=== PATIENT | male | born 1960 | race Caucasian/White ===

== ENCOUNTER → 2017-08-11 16:01 | Outpatient (CLI) | payer BC, SELFPAY ==
--- NOTE | 2017-08-11 16:14 | MRI_ITS ---
STUDY: MRI RIGHT WRIST WITHOUT CONTRAST REASON FOR EXAM: Male, 57 years old. Cyst on right wrist 4 months. TECHNIQUE: Standardized fat and water weighted pulse sequences were obtained in all 3 orthogonal planes. COMPARISON: Radiograph of the right wrist dated June 04, 2016 showing severe osteoarthritic changes. FINDINGS: There is severe arthrosis of the radiocarpal and radioulnar joints. There is severe intercarpal arthritis with loss of articular cartilage and subchondral cyst formation. There is severe arthrosis of the first carpometacarpal joint with a joint effusion and small ganglion cyst (coronal series 4 images 7-15). There is a tear of the triangular fibrocartilage complex with fluid in the distal radioulnar joint (coronal series 4 images 7-13). There is a small volar ganglion cyst at the radioulnar articulation (short axis series 6 images 14-18). There is marked tenosynovitis of the third and fourth dorsal compartments (short axis series 6 images 1-14). There is mild tenosynovitis of the extensor carpi ulnaris (axial series 6 images 16-21). MRI/Upper Ext Joint Only(Routine) IMPRESSION: Severe osteoarthritic changes as described. Severe arthrosis of the first carpometacarpal joint with a small ganglion cyst medially. TFCC tear with fluid in the distal radioulnar joint. Small volar ganglion cyst at the radial ulnar articulation. Marked tenosynovitis of the third and fourth dorsal compartments. Mild tenosynovitis of the extensor carpi ulnaris. Electronically Signed: Naresh Cline MD at 17:00 EDT , Service support ,
== END ==
PROVIDERS: Family Provider Family Medicine Geriatric Medicine; PCP Family Medicine Geriatric Medicine; Visit Provider Orthopaedic Surgery
DX: M67.431 Ganglion, right wrist (principal)
CPT/HCPCS: 73221

== ENCOUNTER 2017-08-31 10:20 | Day surgery (SDC) | payer BC, SELFPAY ==
[2017-08-31] VITALS (7 sets, daily range): BP systolic 107–138; BP diastolic 73–90; PULSE 74–92; RESP 16; TEMP 36.3–36.6; O2SAT 100; BMI 27.8
--- NOTE | 2017-08-31 | SYN_PTH ---
PATIENT: IRIS MUNOZ LOC: [facility] [place] U#:[id number] AGE/SX: 57/M ROOM: RE08/31/[address]: Dr. Amada Pleitez DO : 1960 BED: DIS: 08/31/2017 SPEC #: [id number] RECD: 08/31/17 08:53 STATUS: MADELEINE DEVANG #: [id number] JONN: 08/31/17 00:[address]: Amada Pleitez DEPT: SURGICAL PATHOLOGY RECD BY: oHme Farris ENTERED: 09/01/17 08:54 SP TYPE: SYNOVIUM OTHR DR: Dr. Jeffrey Mcmillan MD Tissues: Synovial tissue of joint, NOS Procedures: Surgery Specimen Level IV HEADER OPERATION: Excision cyst PRE-OP DIAGNOSIS: Cyst dorsal hand, right TISSUE SUBMITTED: Synovial cyst, right hand MICROSCOPIC DIAGNOSIS Right hand synovial cyst, excision: Synovial cyst with mild fibrosis and minimal chronic inflammation. AM:rozina 09/02/17 MICROSCOPIC DESCRIPTION Slides are reviewed. GROSS DESCRIPTION Received in fixative is one container labeled with the patient's name and designated synovial cyst right hand. The specimen consists of multiple irregular fragments of light ramos-yellow soft tissue that in aggregate measure 3 x 1.5 x 0.2 cm. The specimen is totally submitted in one cassette. / AM:rozina 09/01/17 TC:5 CPT: 49136
[2017-08-31] MEDS: Cefazolin 2 GM in 0.9% Normal Saline 100 ML IV (11:16)
--- NOTE | 2017-08-31 11:30 | DCINST_ITS ---
Discharge Diet: No Restrictions - leave dressing on until seen in postop clinic , call with concerns Discharge Activity: May Not Drive May shower in (days): 1 Ice area for (Minutes): 20 - Every hour while awake. Weight Bearing Status: Weight bearing as tolerated Keep extremity elevated above heart level: Operative Extremity Call your doctor if your incision/area has: Continuous Slow Oozing, Sudden Increased Bleeding, Increased Pain/ Swelling, Increased Redness, Foul Smelling Discharge Call your doctor if you observe: Fever of 101 or Higher, Coldness, Increased Pain, Numbness or Tingling, Change in Color, Calf discomfort Allergies/Adverse Reactions: Allergies Gadolinium-MRI Contrast Medium [CONTRAST] Allergy (Verified 08/30/17 10:33) Unknown Iodinated Contrast- Oral and IV Dye [CONTRASTS] Allergy (Verified 08/30/17 10:33 ) Unknown Medications to take at Discharge Amlodipine Bes/Olmesartan Med [Richie 5-20 mg Tablet] 1 each PO DAILY 08/30/17 Oxycodone HCl/Acetaminophen [Percocet 5/325] 1 - 2 tablet PO Q6H PRN PRN 5 Days #56 tablet 08/31/17 The following prescriptions were given: Oxycodone HCl/Acetaminophen [Percocet 5/325] 1 - 2 tablet PO Q6H PRN PRN 5 Days #56 tablet PRN Reason: Pain Primary Care Physician: Jeffrey Mcmillan Chi, MD [Primary Care Provider] - Please Follow Up With: Amada Pleitez, DO - [phone]
--- NOTE | 2017-08-31 11:30 | PCM.OPRPT ---
Report of Operation Date of Procedure: 08/31/17 Pre-Operative Diagnosis: right hand dorsum synovial cyst Post-Operative Diagnosis: same Surgery/Procedure Performed:: right dorsum hand excision synovial cyst Type of Anesthesia:: Francy Washington Anesthesiologist: Konstantin Winn Estimated Blood Loss (mL): none Fluids Replaced: 800cc lr Description of Procedure: Preoperative note 57-year-old male with right dorsal hand synovial cyst. Confirmed with imaging. Patient failed conservative treatment and like to proceed with right dorsal hand synovial cyst excision. Risks benefits and alternatives surgery discussed with patient. Risks including but not limited to blood loss, blood clot, infection, neurovascular injury, failure procedure, loss of life and loss of limb. Patient is aware would like to proceed with right dorsal hand cyst excision. Biggest risk for this procedure procedure is actually reaccumulation of the synovial fluid and a cyst. Operative note Patient seen and examined preoperative holding area. Right hand was marked. Patient is brought to the operating room placed supine on the operating table. Sign, anesthesia, antibiotics were administered. Right hand was prepped and draped in usual sterile fashion after [place] block was initiated. We then marked out our incision over the synovial cyst on the dorsum of the hand extending across the wrist crease as it did on the cyst did cross the wrist crease proximally. Timeout was performed. Then used a 15 blade cut through the skin in a curvilinear fashion at our incision. I dissected down times the level of the cyst. The cyst was wrapped around the extensor tendons. We removed this there is no attritional wear of the extensor tendons. Use a combination of tenotomies and are bipolar to try to release the cyst. We did send it to pathology for further evaluation. We may careful attention to ensure that we had all neurovascular structures well protected as well as the tendons. Again we dissected down to the tendon and excised the synovial cyst as we could. We did have to release some of the extensor retinaculum which was repaired with a 2 2-0 Vicryl. We irrigated the in hand with copious nonsterile saline. The retinaculum was repaired with again with 3-0 Vicryl the skin was closed with subcutaneous 2-0 Vicryl and the skin was closed with interrupted 4-0 nylon stitches sterile dressings and a splint was applied to the right wrist. Patient's tourniquet was deflated for total working time of 50 minutes. Patient tolerated procedure well there are no complications. Patient transferred to recovery room in stable condition. Next Postoperative note Nonweightbearing right hand next May use hand as tolerated Keep dressing clean and dry and intact this Call with increased pain numbness tingling further issues arise Follow-up in 2 weeks This note was generated with [employer] dictation software. It may contain incorrect words, spelling, and punctuation that were not noted in checking the note before signing.
[2017-08-31] MEDS: Mupirocin Ointment 22gm Tube 1 APPLIC (12:34)
== END 2017-08-31 13:53 | disposition home or self-care (01) ==
PROVIDERS: Family Provider Family Medicine Geriatric Medicine; PCP Family Medicine Geriatric Medicine; Visit Provider Orthopaedic Surgery
PROC: (CPT 26160; principal; 2017-08-31 12:50)
DX: M71.341 Other bursal cyst, right hand (principal); I10 Essential (primary) hypertension; F17.200 Nicotine dependence, unspecified, uncomplicated; Z79.899 Other long term (current) drug therapy; Z86.718 Personal history of other venous thrombosis and embolism
CPT/HCPCS: 26160; 88305; J7120

== ENCOUNTER → 2018-01-23 16:42 | Outpatient (CLI) | payer BC, SELFPAY ==
[2018-01-23 17:31] LABS: Absolute Lymphocyte Count 1.65 X10^3/ul (0.83-4.51); Absolute Neutrophil Count 3.7 X10^3/uL (2.0-7.7); Basophil# 0.02 X10^3/uL; Basophil% 0.3 % (0-1); Eosinophil# 0.13 X10^3/uL; Eosinophils% 2.1 % (0-5); Hematocrit 43.6 % (40-54); Hemoglobin 14.8 g/dl (13.0-16.5); Lymphocyte # 1.65 X10^3/ul (4.0); Lymphocyte % 27.1 % (19-41); Mean Corp Hgb Conc 33.9 g/gl (32-36); Mean Corpuscular Hgb 31.4 pg (27.0-32.0); Mean Corpuscular Volume 92.6 fL (80-94); Mean Platelet Vol. 9.7 fl (6.2-12.0); Monocyte# 0.62 X10^3/uL; Monocyte% 10.2 % (0-10); Neutrophil # 3.66 X10^3/uL (2.7-7.7); Neutrophil % 60.1 % (47-70); Platelet Count 209 K/mm3 (150-450); RBC Distribution Width CV 12.8 % (11.6-14.6); RBC Distribution Width SD 42.8 fl (35.1-43.9); Red Blood Count 4.71 M/mm3 (4.6-6.2); White Blood Count 6.1 K/mm3 (4.4-11.0)
[2018-01-23 17:32] LABS: POSITIVE COUNT NO; POSITIVE DIFFERENTIAL NO; POSITIVE MORPHOLOGY NO
[2018-01-23 17:44] LABS: AST(SGOT) 17 U/L (15-37); Alanine Aminotransfer ALT/SGPT 25 U/L (16-61); Albumin, Serum 3.6 g/dL (3.2-5.0); Alkaline Phosphatase 66 U/L (45-117); Anion Gap 10 (5-15); BUN 20 mg/dL (7-18); Calcium,Total 8.6 mg/dL (8.5-10.1); Chloride 103 mmol/L (98-107); EST Glomerular Filtration Rate 82 mL/min (>60); Est Glom Filt Rate - Afr Amer 99 mL/min (>60); Globulin 3.5 g/dL (2.2-4.2); Glucose 103 mg/dL (74-106); PSA,Total - Annual Screen 1.75 ng/mL (0.00-4.00); Potassium 4.2 mmol/L (3.5-5.1); Protein, Total 7.1 g/dL (6.4-8.2); Sodium Level 141 mmol/L (136-145); Thyroid Stim Hormone (TSH) 1.22 uIU/mL (0.358-3.74)
[2018-01-25 11:29] LABS: Hep C Antibodies <0.1 s/co ratio (0.0-0.9)
== END ==
PROVIDERS: Family Provider Family Medicine Geriatric Medicine; PCP Family Medicine Geriatric Medicine; Visit Provider Family Medicine Geriatric Medicine
DX: I10 Essential (primary) hypertension (principal); Z13.89 Encounter for screening for other disorder; Z12.5 Encounter for screening for malignant neoplasm of prostate
CPT/HCPCS: 36415; 80053; 84153; 84443; 85025; 86803; G0103

== ENCOUNTER 2019-02-03 18:16 | Emergency (ER) | payer BC, SELFPAY ==
[2019-02-03 18:17] VITALS: BP 128/92; PULSE 105; RESP 15; TEMP 36.4; O2SAT 97; BMI 25.4
--- NOTE | 2019-02-03 19:30 | ED.VISSUMM ---
- ER Visit Summary Date of Service: 02/03/19 Chief Complaint: Left groin lump History of Present Illness: The patient is a 58 M no significant past medical or surgical history. Patient states that he noticed a lump in his left groin today. Denies any pain. No nausea, vomiting no diarrhea no constipation no dysuria. No fever or chills. No prior abdominal surgeries. Physical Examination: Well-appearing 58-year-old male. Vital signs stable afebrile. Lungs clear. Heart regular rhythm. Abdomen soft and nontender. Normal bowel sounds no peritoneal signs. He has a moderate sized left inguinal hernia. Is nontender. Is easily reducible. His external exam otherwise is unremarkable. Right groin is unremarkable. There are no signs of bowel obstruction. No signs are incarcerated or strangulated hernia. Moving all 4 extremities. Neurologically is awake and alert. Test Results: None Emergency Department Course and Treatment: History and exam consistent with a reducible left inguinal hernia. Treatment Plan: Follow-up with Dr. Matute general surgery. Return if severe pain or vomiting or abdominal distention. Disposition: Discharge Impression: Acute left inguinal hernia This note was generated with [email or web address] dictation software. It may contain incorrect words, spelling, and punctuation that were not noted in review of the chart prior to signing ED Disposition - Plan for ED Patient: Referrals: Jeffrey Mcmillan Chi, MD [Primary Care Provider] -
--- NOTE | 2019-02-03 19:32 | ED.DEP ---
ED Disposition - Plan for ED Patient: Disposition: Home or Assisted Living Instructions: HERNIA (Inguinal, Ventral, Umbilical) Referrals: Geo Matute MD [STAFF PHYSICIAN] - As soon as possible Additional Instructions: Motrin for pain. This is a inguinal hernia. You need to follow-up with a local general surgeon to discuss having this fixed. It will not heal on its own. Return to the ER if severe pain or intractable vomiting or you get a distended abdomen. These should not happen but there can be complications of a hernia before you get it repaired.
[2019-02-03 19:45] VITALS: BP 126/90; PULSE 98; TEMP -8.8; TEMP 16; O2SAT 97
== END 2019-02-03 19:45 | disposition home or self-care (01) ==
PROVIDERS: Emergency Provider Emergency Medicine; Family Provider Family Medicine Geriatric Medicine; PCP Family Medicine Geriatric Medicine
DX: K40.90 Unilateral inguinal hernia, without obstruction or gangrene, not specified as recurrent (principal); Z72.0 Tobacco use
CPT/HCPCS: 99282

== ENCOUNTER 2019-02-16 10:54 | Day surgery (SDC) | payer BC, SELFPAY ==
[2019-02-06 14:58] VITALS: BMI 25.4
--- NOTE | 2019-02-08 09:46 | HP_ITS ---
Intake Vital Signs 02/06/19 Body Mass Index (BMI) 25.4 02/06/19 Height 5 ft 10 in 02/06/19 Weight: 176 lb 02/06/19 Body Mass Index (BMI) 25.2 02/06/19 Blood Pressure 126/65 H 02/06/19 Blood Pressure Location Rt brachial 02/06/19 Respiratory Rate 20 H 02/06/19 Pulse Rate 103 H 02/06/19 Pulse Source Monitor 02/06/19 Temperature 98.2 F 02/06/19 Temperature Source Oral 02/06/19 Pulse Ox 99 02/06/19 Oxygen Delivery Method room air Intake Visit Reasons: Lt Inguinal Hernia ER FU Keel Press Operator Required: No Is patient in pain?: No Allergies Gadolinium-MRI Contrast Medium [CONTRAST] Allergy (Verified 02/06/19 14:58) Unknown Iodinated Contrast Media [CONTRASTS] Allergy (Verified 02/06/19 14:58) Unknown Medications Primidone 1 tab PO DAILY 02/03/19 [History Confirmed 02/06/19] PFSH Medical History History of blood clots (Acute) Left inguinal hernia (Acute) Occasional tremors (Acute) Surgical History (Updated 02/06/19 @ 14:52 by Pearl Torres) History of left knee surgery (Acute) h/o cyst excision (Acute) history excision ganglion cyst right hand (Acute) Social History (Updated 02/08/19 @ 09:46 by Geo Matute MD) Smoking Status: Current some day smoker alcohol intake: current alcohol intake frequency: a few times a week Alcohol type: beer substance use type: does not use HPI HPI HPI: IRIS MUNOZ, is a 58 M who presents to the office today for HPI HPI Surgical H&P: Yes HPI: IRIS MUNOZ, is a 58 M who presents to the office today for inguinal hernia. Patient is complaining of bulging in the left groin. He is not having any pain in the right side. He is having no nausea or vomiting or radiation of pain. He does not report any fevers or chills. ROS General General: Yes weight change; no appetite, fatigue, colon cancer, breast cancer or weakness HEENT HEENT: No difficulty swallowing, eye injury, eye surgery, swollen glands or hoarseness Endo Endocrine: No thyroid disease, diabetes mellitus, thyroid cancer, Hair loss, heat intolerance or cold intolerance Skin Skin: No rash or changing moles Breast Breast: No left breast lump, right breast lump, nipple discharge, breast pain, abnormal mammogram, abnormal US or breast enlargement Musc Musculoskeletal: No back problems, arthritis, rheumatoid arthritis, gout or joint pain Cardio Cardiovascular: No murmur, pacemaker, heart disease, atrial fibrillation, high blood pressure, heart attack, heart stent, palpitations, shortness of breat with exertion or chest pain Psych Psychiatric: No depression, anxiety or hearing voices Resp Respiratory: No shortness of breath, No sleep apnea, Yes cough, No COPD, No asthma, No emphysema, No wheezing Gastro Gastrointestinal: No abdominal pain, No nausea or vomiting, No diarrhea, No constipation, No blood in stool, No acid reflux, No hemorrhoids, No ulcers, No gallbladder problem, No black,tarry stools Jorge Hematologic: Yes blood thinners, No blood disorders, No bleeding, No anemia, Yes blood clots Neuro Neurologic: No system reviewed and no additional complaints, except as docu, No as per HPI, No abnormal walking, No abnormal hearing, No abnormal movements, No abnormal speech, No behavioral changes, No burning sensations, No confusion, No seizure-like activity, No unsteadiness, No dizziness, No localized weakness, No frequent falls, No headache(s), No lack of coordination, No loss of vision, No memory loss, No numbness, No other visual disturbances, No radiating pain, No restless legs, No sensory deficit, No fainting, No tingling, No tremor(s), No weakness, No other Exam Const General: cooperative Orientation: alert, oriented x3 HENMT Head: normal to inspection Ears: hearing grossly normal bilaterally Eyes General: appearance normal, both eyes and all related structures Visual Oconnell: normal visual oconnell by confrontation Neck Neck: normal visual inspection Chest Chest palpation & inspection: normal inspection of the chest Breast Palpation: No nipple discharge Resp Effort & Inspection: normal respiratory effort Auscultation: clear to auscultation bilaterally Cardio Rate: regular rate Rhythm: regular rhythm Heart Sounds: no murmurs GI Inspection: non-distended Palpation: soft, hernia indirect inguinal bilaterally and umbilical, nontender Musc Cervical Spine: normal cervical lordosis, cervical ROM normal Skin General: no rashes or lesions noted Neuro General: alert, oriented x3 Cranial Nerves: CN's II-XI intact bilaterally Cognition: normal cognition Extrem General: normal to inspection, full ROM Psych Appearance: grossly normal Affect: normal affect Assessment & Plan Problems 1. Umbilical hernia without obstruction and without gangrene K42.9 2. Non-recurrent bilateral inguinal hernia without obstruction or gangrene K40.20 Plan The patient on physical exam has a small umbilical hernia and bilateral inguinal hernias. They are all reducible and nontender. I discussed open versus laparoscopic repair. The patient is leaning toward lap scopic repair. I discussed robotic assisted laparoscopic bilateral inguinal hernia repair with mesh as well as umbilical hernia repair with or without mesh. I discussed the risks of the procedure including but not limited to bleeding, infection, injury to spermatic cord, chronic groin pain, injury to underlying bowel, hernia recurrence. Patient understands all the risks and is willing to proceed with surgery. Geo Matute MD Pager: [facility] [address] [place] [address], [address] [place] [address] Office: Coding Level of Care Code Off vis,new,level 4 Diagnoses Umbilical hernia without obstruction and without gangrene K42.9 ??Obstruction and gangrene presence: without obstruction or gangrene Non-recurrent bilateral inguinal hernia without obstruction or gangrene K40.20 ??Obstruction and gangrene presence: without obstruction or gangrene ??Recurrence: non-recurrent Time Spent (min) 45 02/08/19 0693 <Electronically signed by Geo glynn MD> Date _ Geo Matute MD I have re-examined the patient. There are no clinical changes since date of exam.
[2019-02-16] VITALS (8 sets, daily range): BP systolic 125–159; BP diastolic 80–91; PULSE 56–72; RESP 14–18; TEMP 36.4–36.9; O2SAT 94–100; BMI 25.2
[2019-02-16] MEDS: Lactated Ringers 1,000 ML 100 ML IV ×2 (11:54→14:42)
[2019-02-16] MEDS: Cefazolin 2 GM in 0.9% Normal Saline 100 ML IV (12:16)
--- NOTE | 2019-02-16 13:05 | HERN_PTH ---
PATIENT: IRIS MUNOZ LOC: [facility] [place] U#:[id number] AGE/SX: 58/M ROOM: RE02/16/[address]: Dr. Geo Matute MD : 1960 BED: DIS: 02/16/2019 SPEC #: [id number] RECD: 02/16/19 15:17 STATUS: MADELEINE DEVANG #: [id number] JONN: 02/16/19 13:[address]: Geo Matute DEPT: SURGICAL PATHOLOGY RECD BY: Emmanuel Reese ENTERED: 02/19/19 09:21 SP TYPE: Hernia OTHR DR: Dr. Jeffrey Mcmillan MD Tissues: A - HERNIA B - LIPOMA OF CORD Procedures: Surgery Specimen Level II Surgery Specimen Level III HEADER OPERATION: Robotic laparoscopic bilateral inguinal hernia repair PRE-OP DIAGNOSIS: Umbilical hernia without obstruction and without gangrene, nonrecurrent bilateral inguinal hernia without obstruction or gangrene TISSUE SUBMITTED: A. Umbilical hernia sac, B. Lipoma right cord MICROSCOPIC DIAGNOSIS A. Umbilical hernia sac, herniorrhaphy: Fragments of fibrofatty tissue consistent with hernia sac. B. Right cord lipoma, excision: Mature adipose tissue consistent with lipoma cord. AM:rozina 02/20/19 MICROSCOPIC DESCRIPTION Slides are reviewed. GROSS DESCRIPTION A - Received in fixative is one container labeled with the patient's name and designated umbilical hernia sac. The specimen consists of two irregular fragments of ramos-yellow fatty tissue that in aggregate measure 2.6 x 2 x 1 cm. Serial sections do not reveal nodularities. The specimen is sectioned and totally submitted in one cassette. / AM:rozina 02/19/19 B - Received in fixative is one container labeled with the patient's name and designated right cord lipoma. The specimen consists of yellow fatty tissue measuring 2.5 x 2 x 1 cm. Sections reveal yellow cut surfaces. Football Pad Repairer sections are submitted in one cassette. / AM:rozina 02/19/19 TC:4 CPT: 68321, 72043
--- NOTE | 2019-02-16 13:17 | EKG12_ITS ---
Test Reason : PRE OP Blood Pressure : / mmHG Vent. Rate : 074 BPM Atrial Rate : 074 BPM P-R Int : 138 ms QRS Dur : 094 ms QT Int : 372 ms P-R-T Axes : 065 078 064 degrees QTc Int : 412 ms Normal sinus rhythm with sinus arrhythmia Normal ECG Confirmed by ARMANDO TRAVIS, KATY ([id number]), tape editor CLEO BARBOSA ([id number]) on 02/21/2019 10:52:02 AM Referred By: Geo Matute Confirmed By:KATY ROBERTS MD
[2019-02-16] MEDS: Bupivacaine Mpf 0.5% 30 ML VIAL (14:00)
--- NOTE | 2019-02-16 14:18 | OP.PCM_ITS ---
Problem List (1) Bilateral inguinal hernia Status: Acute Qualifiers: Obstruction and gangrene presence: without obstruction or gangrene Recurrence: non-recurrent Qualified Code(s): K40.20 - Bilateral inguinal hernia, without obstruction or gangrene, not specified as recurrent (2) Umbilical hernia Status: Acute Qualifiers: Obstruction and gangrene presence: without obstruction or gangrene Qualified Code(s): K42.9 - Umbilical hernia without obstruction or gangrene Report of Operation Date of Procedure: 02/16/19 Pre-Operative Diagnosis: 1. Bilateral inguinal hernias. 2. Umbilical hernia Post-Operative Diagnosis: Same Surgery/Procedure Performed:: 1. Robotic assisted laparoscopic bilateral inguinal hernia repair with mesh. 2. Umbilical hernia repair Specimen's removed: 1. Umbilical hernia sac. 2. Right inguinal lipoma Description of Procedure: The patient was brought back to the operating room and general anesthesia was induced. The abdomen was prepped and draped in usual sterile fashion. A curvilinear incision was made superior to the umbilicus and deepened to the hernia. The hernia sac was excised. Using this opening the abdomen was entered and port was placed in the abdomen. The abdomen was insufflated to 15 mmHg. The abdomen was inspected and there was a large direct left inguinal hernia. Next under direct visualization an 8 mm port was placed in the left lateral abdominal sidewall and the right lateral abdominal sidewall. The patient was placed in a steep Trendelenburg position and the robot was docked. Attention was first paid to the left inguinal region. The peritoneum was scored with electrocautery scissors and dissected inferiorly until the hernia sac was reduced into the abdomen and dissected free from all adhesions. Next pro-lab support tech mesh was placed into the left inguinal region and unfolded. The peritoneum was then reapproximated using running 3-0V lock suture. Next attention was paid to the right inguinal canal. The peritoneum was scored in the same fashion and the peritoneum was dissected inferiorly until the inguinal canal was reached. The right had an indirect hernia containing a large lipoma. The lipoma was reduced and dissected free and removed from the abdomen. Next a piece of pro-lab support tech mesh was placed into the right inguinal region and unfolded. The peritoneum was reapproximated using 2 3-0V lock sutures. The peritoneum was very thin and friable on the side. The mesh was completely covered with peritoneum by the end of the case. Next the instruments were removed and the patient was placed in the flat position and the ports were removed. The umbilical fascial defect was very small and closed with 2 interrupted 0 Vicryl sutures. The skin was then anesthetized with Marcaine and all the skin incisions were closed with interrupted 4-0 Monocryl sutures, Steri-Strips, bandages. Patient tolerated the procedure well was brought to PACU in stable condition. Grafts/Implants Used: Pro-lab support tech mesh bilaterally - Admit VTE Documentation VTE Mechan Device Prophylaxis: SCD's
--- NOTE | 2019-02-16 14:24 | DCINST_ITS ---
Discharge Diet: Light diet - advance as tolerated Discharge Activity: Return to Normal Activity, May Not Drive - for 2-3 days or while taking narcotic pain meds., May Shower - with the bandage in place 1-2 days after surgery. Lifting Restrictions: 20 pounds for 6 weeks. Additional Activity Instructions:: Climbing stairs is fine, walking is encouraged. Sitting in bed may be uncomfortable. Sitting up using your lateral muscles (sitting up sideways) is usually more comfortable. Do not drive, work heavy equipment of sign legal documents for 24 hours. If your hernia repair was an ingunial repair, you may have scrotal swelling, an ice pack and/or athletic support can provide more comfort. Pain medications may cause nausea, you should typically eat light foods as you take your pain medications. Pain medications may also cause constipation. If you have difficulty with this, discuss with your doctor. Call your doctor if your incision/area has: Continuous Slow Oozing, Sudden Increased Bleeding, Increased Pain/ Swelling, Increased Redness, Foul Smelling Discharge Call your doctor if you observe: Fever of 101 or Higher Suture Line Care: Avoid Pulling/Pushing, Avoid Pinching/Bending Change Dressing in (Days):: 3 - Leave steri-strips for 1 week. May protect with a guaze bandaid. Cleanse incision/area with: Keep Dressing Clean & Dry Allergies/Adverse Reactions: Allergies Gadolinium-MRI Contrast Medium [CONTRAST] Allergy (Verified 02/16/19 11:33) Unknown Iodinated Contrast Media [CONTRASTS] Allergy (Verified 02/16/19 11:33) Unknown Medications to take at Discharge Primidone 1 tab PO QHS 02/03/19 Oxycodone HCl/Acetaminophen [Percocet 5/325] 1 - 2 tablet PO Q4H PRN PRN 4 Days #20 tablet 02/16/19 The following prescriptions were given: Oxycodone HCl/Acetaminophen [Percocet 5/325] 1 - 2 tablet PO Q4H PRN PRN 4 Days #20 tablet PRN Reason: Pain Transmission Status: Sent to [facility] Primary Care Physician: Jeffrey Mcmillan Chi, MD [Primary Care Provider] - Test Results: Test results from this visit will be discussed in further detail at your follow- up appointment, if applicable. Please Follow Up With: Geo Matute MD When: Please call to schedule 2 week follow up appointment. [phone]
== END 2019-02-16 17:23 | disposition home or self-care (01) ==
LOC: SDC 10:58 → AC 11:24
PROVIDERS: Family Provider Family Medicine Geriatric Medicine; PCP Family Medicine Geriatric Medicine; Referring Provider Surgery; Visit Provider Surgery
PROC: (CPT 49650; principal; 2019-02-16 12:45)
DX: K40.20 Bilateral inguinal hernia, without obstruction or gangrene, not specified as recurrent (principal); K42.9 Umbilical hernia without obstruction or gangrene; I10 Essential (primary) hypertension; F17.200 Nicotine dependence, unspecified, uncomplicated; Z79.899 Other long term (current) drug therapy; Z88.8 Allergy status to other drugs, medicaments and biological substances; Z86.718 Personal history of other venous thrombosis and embolism
CPT/HCPCS: 00840; 49650; 49652; S2900; 88302; 88304; 93005; J7120; J2405

== ENCOUNTER → 2019-03-02 13:49 | Outpatient (CLI) | payer BC, SELFPAY ==
[2019-02-16 11:34] VITALS: BMI 25.2
--- NOTE | 2019-03-02 13:52 | CT_ITS ---
STUDY: CT ABDOMEN AND PELVIS WITHOUT CONTRAST REASON FOR EXAM: Male, 58 years old. Left inguinal hernia. History of previous hernia surgery, most recent repair 02/16/2019. RADIATION DOSAGE (If Supplied By Facility): CTDIvol = ( 7.94 ) mGy, DLP = ( 455.35 ) mGycm TECHNIQUE: Transaxial images were obtained from the dome of the diaphragm to the symphysis pubis with oral contrast, and without intravenous contrast. Sagittal and coronal images were reconstructed. Individualized dose optimization techniques were used for this CT. COMPARISON: None. FINDINGS: The visualized lung bases are unremarkable. The visualized portions of the heart are within normal limits. Normal liver. Normal gallbladder and extrahepatic biliary system. Normal spleen. Normal pancreas. Normal bilateral adrenal glands. There is mild nonspecific bilateral perinephric stranding, otherwise normal right kidney. Normal left kidney. Normal visualized stomach. Normal small intestine. Normal colon. The appendix is visualized and appears normal. There is mild atherosclerotic calcification of the abdominal aorta, without a demonstrated aneurysm. Normal inferior vena cava. Normal retroperitoneum. Normal urinary bladder. Normal visualized prostate gland. There is no right-sided inguinal hernia. There is a left-sided inguinal hernia with suggestion of a portion of the urinary bladder herniated through a small and partially occupying the hernia sac. There are diffuse degenerative changes of the visualized lumbar spine. CT/Abdomen/Pelvis without Cont IMPRESSION: Left-sided inguinal hernia with suggestion of a small portion of the left anterolateral aspect of the urinary bladder herniated through a small/marrow hernia neck, clinical correlation recommended. No bowel obstruction. Abdominal viscera are unremarkable. Electronically Signed: Lindsay Bain MD at 4:32 EDT , Service support ,
== END ==
PROVIDERS: Family Provider Family Medicine Geriatric Medicine; PCP Family Medicine Geriatric Medicine; Referring Provider Surgery; Visit Provider Surgery
DX: K40.90 Unilateral inguinal hernia, without obstruction or gangrene, not specified as recurrent (principal)
CPT/HCPCS: 74176

== ENCOUNTER → 2019-05-07 14:02 | Outpatient (CLI) | payer BC, SELFPAY ==
[2019-03-30 13:26] VITALS: BMI 25.2
== END ==
PROVIDERS: Family Provider Family Medicine Geriatric Medicine; PCP Family Medicine Geriatric Medicine; Referring Provider Family Medicine Geriatric Medicine; Visit Provider Family Medicine Geriatric Medicine
DX: R68.83 Chills (without fever) (principal)
CPT/HCPCS: 87633

== ENCOUNTER 2019-10-19 20:27 | Inpatient (IN) | payer OTHER, MEDICAID, SELFPAY ==
[2019-03-30 13:26] VITALS: BMI 25.2
[2019-10-19 20:28] VITALS: BP 174/121; PULSE 142; RESP 32; TEMP 37.4; O2SAT 93; BMI 32.8
[2019-10-19 20:31] VITALS: BP 174/121; PULSE 142; RESP 32; TEMP 37.4; O2SAT 93; O2SAT 96
--- NOTE | 2019-10-19 20:45 | EKG12_ITS ---
Test Reason : Blood Pressure : / mmHG Vent. Rate : 108 BPM Atrial Rate : 108 BPM P-R Int : 144 ms QRS Dur : 088 ms QT Int : 324 ms P-R-T Axes : 055 068 042 degrees QTc Int : 434 ms Sinus tachycardia Incomplete right bundle branch block Confirmed by ARMANDO TRAVIS, KATY ([id number]), proposal editor VAUGHN MAZARIEGOS ([id number]) on 10/24/2019 1:27:21 PM Referred By: Milton Gómez Confirmed By:KATY ROBERTS MD
--- NOTE | 2019-10-19 20:46 | ED.DCSUM_ITS ---
History of Present Illness Chief Complaint: Shortness of Breath Informant: Patient Narrative: Presents the emergency room with chest pain shortness of breath and abdominal pain. Patient appears to be a poor historian as I have to ask very pointed specific questions to get the history. He tells me he has gained a lot of weight over a while. By this he means approximately 30 pounds over at least 6 months. He states that he had several hernia surgeries on his abdomen and his abdomen has been stiff since that time. He states that over the past 3 weeks it is gotten worse especially as he is put on more weight. He then began to have dry heaves over the past couple days. Tonight he states he could not catch his breath and he was experiencing sharp chest pains were right-sided. Last night he was unable to lay flat in bed so he had to sleep in a recliner. His contrast to IV dye is that he gets dizzy and has to lay down Past Medical History - Allergies and Home Meds Allergies/Adverse Reactions: Allergies Gadolinium-MRI Contrast Medium [CONTRAST] Allergy (Verified 10/19/19 20:35) DIZZY Iodinated Contrast Media [CONTRASTS] Allergy (Verified 10/19/19 20:35) DIZZY Primary Care Physician: Jeffrey Mcmillan Chi, MD [Primary Care Provider] - Surgical History: surgery for boils on the patient's right lower leg and left upper thigh Smoking Status: Former smoker Review of Systems General: Reports: - - Weight gain approximately 30 pounds over at least 6 months. Denies: Chills, Fever, Sweats Eyes: Denies: Visual changes - bilaterally, Diplopia ENT: Denies: Rhinorrhea, Sore throat Cardiovascular: Reports: Chest pain. Denies: Palpitations Respiratory: Reports: Dyspnea, Cough, Dyspnea on exertion, Orthopnea Gastrointestinal: Reports: Abdominal pain, Nausea, Vomiting. Denies: Diarrhea, Constipation, Melena, Hematochezia Genitourinary: Denies: Dysuria, Hematuria, Frequency Musculoskeletal: Denies: Back pain, Extremity Pain Skin: Denies: Rash, Wounds Neurological: Denies: Headache, Weakness, Numbness Physical Exam Vital Signs/Narrative: Vital Signs Temp Pulse Resp BP Pulse Ox 10/19/19 20:31 99.4 F H 142 H 32 H 174/121 H 93 10/19/19 20:28 99.4 F H 142 H 32 H 174/121 H 93 Inital Vital Signs reviewed: Yes General: Well nourished, Well developed, No Acute Distress Head: Normocephalic, Atraumatic Eyes: Perrl, EOMI ENT: Moist mucous membranes, No rhinorrhea Neck: Supple, Nontender Cardiovascular: Regular rate, No murmurs, Tachycardia Respiratory: No distress, CTA bilaterally, Chest nontender Abdomen: Soft, Nondistended, Normal bowel sounds, Tender - Diffusely tender Back: Nontender, Normal Inspection Extremities: Nontender, No edema Skin: Normal color, No rash Neurological: Alert, Oriented x3, Cranial nerves II-XII grossly intact, Normal Strength, Normal Sensation Psychological: Tearful Diagnostic/Tx/Re-eval Clinical Impression(s) from Imaging Studies Chest X-Ray 10/19/19 20:49 IMPRESSION: No acute thoracic pathology. Electronically Signed: Shabbir Billings, at 21:05 EDT Tel , Service support , Abdomen/Pelvis CT 10/19/19 21:45 IMPRESSION: New elevation of the right hemidiaphragm with right lower lobe airspace disease consolidation and many new calcified hilar and right lung granulomas. This could be due to phrenic nerve injury causing for elevation of the right hemidiaphragm. This could be due to of lymph nodes, some which are calcified causing bronchial wall obstruction and volume loss within the right lower lobe. This could also be due to infection on top of chronically atelectatic lung with a small right pleural effusion. Severe coronary artery calcific ASCVD. Individualized dose optimization techniques were used for this CT. at 2300 Reported and signed by: Jeremi Morris MD Electronically Signed: Jeremi Morris MD at 22:59 EDT Tel , Service support , Chest CTA 10/19/19 21:45 IMPRESSION: It is possible that there is some acute PE within the right lower lobe. It is difficult to assess on this study due to timing of the contrast bolus greatest for the pulmonary veins in the thoracic aorta than the pulmonary arteries. Series 2 image 114, however, suggest the possibility of acute PE within the right lower lobe. If this is acute PE with this area of consolidation within the right lower lobe with small pleural effusion this is possibly a pulmonary infarct Additionally, however, there is some new right hilar mediastinal and right lower lobe calcified granulomatous disease. Is feasible that there has been bronchial obstruction and atelectasis and postobstructive pneumonia with small right pleural effusion neoplasias within the differential but considered less likely. Individualized dose optimization techniques were used for this CT. at 2316 Reported and signed by: Jeremi Morris MD Electronically Signed: Jeremi Morris MD at 23:14 EDT Tel , Service support , ADDENDUM: 10/19/197 IMPRESSION: It is possible that there is some acute PE within the right lower lobe. It is difficult to assess on this study due to timing of the contrast bolus greatest for the pulmonary veins in the thoracic aorta than the pulmonary arteries. Series 2 image 114, however, suggest the possibility of acute PE within the right lower lobe. If this is acute PE with this area of consolidation within the right lower lobe with small pleural effusion this is possibly a pulmonary infarct Additionally, however, there is some new right hilar mediastinal and right lower lobe calcified granulomatous disease. Is feasible that there has been bronchial obstruction and atelectasis and postobstructive pneumonia with small right pleural effusion neoplasias within the differential but considered less likely. Individualized dose optimization techniques were used for this CT. at 2316 Reported and signed by: Jeremi Morris MD N.B. : The above information has been verbally conveyed by Jeremi Morris MD to Leo Nicholas MD, on 10/19/2019 23:21:00 (ET). Electronically Signed: Jeremi Morris MD at 23:14 EDT Tel , Service support , Laboratory Last Values WBC 9.0 K/mm3 (4.4-11.0) 10/19/19 21:35 Corrected WBC Cancelled 10/19/19 20:15 RBC 4.77 M/mm3 (4.6-6.2) 10/19/19 21:35 Hgb 14.7 g/dL (13.0-16.5) 10/19/19 21:35 Hct 44.5 % (40-54) 10/19/19 21:35 MCV 93.3 fL (80-94) 10/19/19 21:35 MCH 30.8 pg (27.0-32.0) 10/19/19 21:35 MCHC 33.0 g/dL (32-36) 10/19/19 21:35 RDW Std Deviation 42.3 fl (35.1-43.9) 10/19/19 21:35 RDW Coeff of [place] 12.3 % (11.6-14.6) 10/19/19 21:35 Plt Count 201 K/mm3 (150-450) 10/19/19 21:35 MPV 8.9 fl (6.2-12.0) 10/19/19 21:35 Immature Gran % (Auto) 0.400 % (0.0-0.9) 10/19/19 21:35 Neut % (Auto) 73.1 % (47-70) H 10/19/19 21:35 Lymph % (Auto) 13.3 % (19-41) L 10/19/19 21:35 [place] % (Auto) 11.9 % (0-10) H 10/19/19 21:35 Eos % (Auto) 1.0 % (0-5) 10/19/19 21:35 Baso % (Auto) 0.3 % (0-1) 10/19/19 21:35 Absolute Neuts (auto) 6.6 X10^3/uL (2.0-7.7) 10/19/19 21:35 Absolute Lymphs (auto) 1.20 X10^3/uL (0.83-4.51) 10/19/19 21:35 Total Counted Cancelled 10/19/19 20:15 Neutrophils % (Manual) Cancelled 10/19/19 20:15 Band Neutrophils % Cancelled 10/19/19 20:15 Lymphocytes % (Manual) Cancelled 10/19/19 20:15 Monocytes % (Manual) Cancelled 10/19/19 20:15 Eosinophils % (Manual) Cancelled 10/19/19 20:15 Basophils % (Manual) Cancelled 10/19/19 20:15 Metamyelocytes % Cancelled 10/19/19 20:15 Myelocytes % Cancelled 10/19/19 20:15 Promyelocytes % Cancelled 10/19/19 20:15 Blast Cells % Cancelled 10/19/19 20:15 Plasma Cell % (Manual) Cancelled 10/19/19 20:15 Other Cells % Cancelled 10/19/19 20:15 Nucleated RBC % 0 % (0-5) 10/19/19 21:35 Nucleated RBCs/100 WBC Cancelled 10/19/19 20:15 Differential Comment Cancelled 10/19/19 20:15 Diff Path Review Cancelled 10/19/19 20:15 Hypersegmented Neuts Cancelled 10/19/19 20:15 Atypical Lymphocytes Cancelled 10/19/19 20:15 Reactive Lymphocytes Cancelled 10/19/19 20:15 Smudge Cells Cancelled 10/19/19 20:15 Toxic Granulation Cancelled 10/19/19 20:15 Toxic Vacuolation Cancelled 10/19/19 20:15 Dohle Bodies Cancelled 10/19/19 20:15 Efrain Rods Cancelled 10/19/19 20:15 Platelet Estimate Cancelled 10/19/19 20:15 Plt Morphology Comment Cancelled 10/19/19 20:15 RBC Morphology Cancelled 10/19/19 20:15 RBC Morphology Cancelled 10/19/19 20:15 Polychromasia Cancelled 10/19/19 20:15 Hypochromasia Cancelled 10/19/19 20:15 Poikilocytosis Cancelled 10/19/19 20:15 Basophilic Stippling Cancelled 10/19/19 20:15 Anisocytosis Cancelled 10/19/19 20:15 Microcytosis Cancelled 10/19/19 20:15 Macrocytosis Cancelled 10/19/19 20:15 Spherocytes Cancelled 10/19/19 20:15 Sickle Cells Cancelled 10/19/19 20:15 Target Cells Cancelled 10/19/19 20:15 Tear Drop Cells Cancelled 10/19/19 20:15 Ovalocytes Cancelled 10/19/19 20:15 Stomatocytes Cancelled 10/19/19 20:15 [place] Bodies Cancelled 10/19/19 20:15 Elise Cells Cancelled 10/19/19 20:15 Bite Cells Cancelled 10/19/19 20:15 Crenated Cell Cancelled 10/19/19 20:15 Acanthocytes (Spur) Cancelled 10/19/19 20:15 Rouleaux Cancelled 10/19/19 20:15 Schistocytes Cancelled 10/19/19 20:15 PT 12.9 SECONDS (11.7-14.9) 10/19/19 20:15 INR 1.0 10/19/19 20:15 APTT 21.7 Seconds (24.1-36.2) L 10/19/19 20:15 Sodium 130 mmol/L (136-145) L 10/19/19 20:15 Potassium 4.2 mmol/L (3.5-5.1) 10/19/19 20:15 Chloride 97 mmol/L (98-107) L 10/19/19 20:15 Carbon Dioxide 26.0 mmol/L (21.0-32.0) 10/19/19 20:15 Anion Gap 7 (5-15) 10/19/19 20:15 BUN 15 mg/dL (7-18) 10/19/19 20:15 Creatinine 1.10 mg/dL (0.70-1.30) 10/19/19 20:15 Estim Creat Clear Calc 75.58 ml/min 10/19/19 20:15 Est GFR (MDRD) Af Amer 88 mL/min (>60) 10/19/19 20:15 Est GFR (MDRD) Non-Af 73 mL/min (>60) 10/19/19 20:15 BUN/Creatinine Ratio 13.6 RATIO (10-20) 10/19/19 20:15 Glucose 115 mg/dL (74-106) H 10/19/19 20:15 Calcium 9.5 mg/dL (8.5-10.1) 10/19/19 20:15 Total Bilirubin 0.90 mg/dL (0.20-1.00) 10/19/19 20:15 AST 11 U/L (15-37) L 10/19/19 20:15 ALT 22 U/L (16-61) 10/19/19 20:15 Alkaline Phosphatase 102 U/L (45-117) 10/19/19 20:15 Troponin I < 0.015 ng/mL (<0.045) 10/19/19 20:15 B-Natriuretic Peptide 26.9 pg/mL (0-100) 10/19/19 20:15 Total Protein 8.4 g/dL (6.4-8.2) H 10/19/19 20:15 Albumin 3.9 g/dL (3.2-5.0) 10/19/19 20:15 Globulin 4.5 g/dL (2.2-4.2) H 10/19/19 20:15 Albumin/Globulin Ratio 0.9 RATIO (0.9-2.4) 10/19/19 20:15 Lipase 47 U/L (73-393) L 10/19/19 20:15 - EKG Initial EKG Interpretation: Sinus Tachycardia - EKG demonstrates a sinus tachycardia at a rate of 130 without ectopy. There are no concerning features of ACS - Medical Decision Making Patient received morphine Zofran and fluids. His heart rate is come down to around 110 but is still sinus tachycardia consistently. Basic labs are essentially negative. His CT was abdomen pelvis shows nothing intra-abdominal to explain his symptoms. CTA of the chest was obtained. All this was a technically difficult study I spoke with the radiologist directly given his degree of tachycardia and his shortness of breath and his acuteness as well as a lack of a white count lack of any significant cough or sputum production it is felt that this is most likely dental detail representative of pulmonary embolism with infarct. I spoke with our hospitalist who recommends a dose of Eliquis and a COVID screen. ED Disposition - Plan for ED Patient: Disposition: Acute Care Hospital [facility] Diagnosis: Pulmonary embolism and infarction Referrals: Jeffrey Mcmillan Chi, MD [Primary Care Provider] -
--- NOTE | 2019-10-19 20:49 | RAD_ITS ---
STUDY: X-RAY CHEST REASON FOR EXAM: Male, 59 years old. Shortness of breath TECHNIQUE: Frontal view of the chest COMPARISON: None. FINDINGS: The lungs are clear. There are no pleural effusions. There is no pneumothorax. The heart is normal in size. The visualized osseous structures are within normal limits. RAD/Chest 1 View (Portable) IMPRESSION: No acute thoracic pathology. Electronically Signed: Shabbir Billings, at 21:05 EDT Tel , Service support ,
[2019-10-19 20:55] VITALS: BP 174/86; PULSE 125; RESP 24; O2SAT 95
[2019-10-19] MEDS: 0.9% Normal Saline 1,000 ML 150 ML IV (21:07)
[2019-10-19] MEDS: Morphine 4 MG/ML Syringe IV (21:08)
[2019-10-19] MEDS: Ondansetron 4 MG/2 ML Vial IV (21:08)
[2019-10-19 21:19] LABS: ALB/GLOB Ratio 0.9 RATIO (0.9-2.4); AST(SGOT) 11 U/L (15-37); Alanine Aminotransfer ALT/SGPT 22 U/L (16-61); Albumin, Serum 3.9 g/dL (3.2-5.0); Alkaline Phosphatase 102 U/L (45-117); Anion Gap 7 (5-15); BUN 15 mg/dL (7-18); BUN/Creat Ratio 13.6 RATIO (10-20); Calcium,Total 9.5 mg/dL (8.5-10.1); Chloride 97 mmol/L (98-107); EST Glomerular Filtration Rate 73 mL/min (>60); Est Glom Filt Rate - Afr Amer 88 mL/min (>60); Estimated Creatinine Clearance 75.58 ml/min; Globulin 4.5 g/dL (2.2-4.2); Glucose 115 mg/dL (74-106); Lipase 47 U/L (73-393); Potassium 4.2 mmol/L (3.5-5.1); Protein, Total 8.4 g/dL (6.4-8.2); Sodium Level 130 mmol/L (136-145)
[2019-10-19 21:25] LABS: Prothrombin Time (Protime)PT. 12.9 SECONDS (11.7-14.9)
[2019-10-19 21:26] LABS: Partial Thromboplast Time 21.7 Seconds (24.1-36.2)
[2019-10-19 21:31] VITALS: BP 148/105; PULSE 122; RESP 22; TEMP 37.7; O2SAT 96
[2019-10-19 21:32] LABS: BNP,B-Type NATRIURETIC PEPTIDE 26.9 pg/mL (0-100)
[2019-10-19 21:41] LABS: Absolute Neutrophil Count 6.6 X10^3/uL (2.0-7.7); Basophil# 0.03 X10^3/uL; Basophil% 0.3 % (0-1); Eosinophil# 0.09 X10^3/uL; Hematocrit 44.5 % (40-54); Hemoglobin 14.7 g/dL (13.0-16.5); Lymphocyte % 13.3 % (19-41); Mean Corpuscular Hgb 30.8 pg (27.0-32.0); Mean Corpuscular Volume 93.3 fL (80-94); Mean Platelet Vol. 8.9 fl (6.2-12.0); Monocyte# 1.07 X10^3/uL; Monocyte% 11.9 % (0-10); NRBC Flagged by Analyzer 0 % (0-5); Neutrophil # 6.59 X10^3/uL (2.7-7.7); Neutrophil % 73.1 % (47-70); Platelet Count 201 K/mm3 (150-450); RBC Distribution Width CV 12.3 % (11.6-14.6); RBC Distribution Width SD 42.3 fl (35.1-43.9); Red Blood Count 4.77 M/mm3 (4.6-6.2)
--- NOTE | 2019-10-19 21:45 | CT_ITS ---
We are attempting to reach an attending provider to discuss findings. An addendum with communication details will be sent when the communication is complete. HISTORY: RT SIDED PAIN,SOB,WEIGHT GAIN,ELEVATED BPHX:HTN,HERNIA REPAIR X 3 TECHNIQUE: Helically acquired images were obtained of the chest following the intravenous administration of 100 ML of Isovue-370 Iodinated contrast. as per pulmonary angiogram protocol with 2D , but no 3-D MIP reconstructions. A radiation dose optimization technique was used for this scan. COMPARISON: A chest x-ray is available from less than [address] scan of the abdomen and pelvis is available from March 02, 2019 FINDINGS: # of images incl. paperwork: [id number] Elevation of the right hemidiaphragm with consolidation of some of the right lower lobe. There is some new calcifications within the right hilum and the right mediastinum consistent with calcified granulomatous disease they could be causing bronchial obstruction and atelectasis. There is a right lung calcified granuloma within this consolidated lung within the right lower lobe. Minimal scarring within the lingula in the left lower lobe. Slight thickening of the minor fissure possibly due to a small right pleural effusion. . Small right dependent pleural effusion Within the thoracic spinethere is a multi-level area of degenerative disc disease and mild scoliosis Vertebral body height is normal. Facets are well aligned. No rib lesions are perceived. Heart is not enlarged. Thoracic aorta disease with atherosclerotic plaque. No aneurysms, stenoses, dissections, nor occlusions. No axillary or mediastinal adenopathy. Series 2 image 113 suggests the possibility of acute pulmonary embolism within the right lower lobe. It is very difficult to assess due to the timing of the contrast bolus optimized more for pulmonary veins and the thoracic aorta and pulmonary arteries. CT/CTA Chest W/WO Contrast IMPRESSION: It is possible that there is some acute PE within the right lower lobe. It is difficult to assess on this study due to timing of the contrast bolus greatest for the pulmonary veins in the thoracic aorta than the pulmonary arteries. Series 2 image 114, however, suggest the possibility of acute PE within the right lower lobe. If this is acute PE with this area of consolidation within the right lower lobe with small pleural effusion this is possibly a pulmonary infarct Additionally, however, there is some new right hilar mediastinal and right lower lobe calcified granulomatous disease. Is feasible that there has been bronchial obstruction and atelectasis and postobstructive pneumonia with small right pleural effusion neoplasias within the differential but considered less likely. Individualized dose optimization techniques were used for this CT. at [id number] Reported and signed by: Jeremi Morris MD Electronically Signed: Jeremi Morris MD at 23:14 EDT Tel , Service support ,
--- NOTE | 2019-10-19 21:45 | CT_ITS ---
HISTORY: RT SIDED PAIN,SOB,WEIGHT GAIN,ELEVATED BPHX:HTN,HERNIA REPAIR X 3 TECHNIQUE: Helically acquired images were obtained of the abdomen and pelvis following the intravenous administration of 100 ML of Isovue-370 Iodinated contrast. 2D reformats. No oral contrast was administered. A radiation dose optimization technique was used for this scan. COMPARISON: CT scan of the abdomen and pelvis from March 02, 2019 FINDINGS: # of images incl. paperwork: [id number] LUNG BASES: Consolidation within the right lower lobe with a tiny right pleural effusion. Severe right hilar and mediastinal calcified granulomatous disease may be causing for bronchial obstruction and volume loss. Coronary artery calcific ASCVD is severe with a tiny pericardial effusion. Some scarring within the lingula and the posterior costophrenic sulcus of the left lower lobe with some prominent pleural fat. Some thickening of the minor fissure likely with a tiny pleural effusion. Elevation of the right hemidiaphragm This disease is all new since the previous study but for splenic granulomatous disease which has progressed CT abdomen: Multilevel degenerative disc disease with large bulky enthesophytes. Facet arthropathy within the lumbar spine. Sclerosis at the pubic symphysis. Enthesophytes are present about the pelvis. Levoscoliosis of the lumbar spine is mild. Large bridging and sclerotic enthesophytes at the synovial portion anteriorly at the SI joints The gallbladder remains. Liver, spleen, pancreas, and adrenal glands, are normal. The kidneys are normal. The aorta is disease with atherosclerotic plaque, but without aneurysm or dissection. CT pelvis: No ascites is present. The prostate gland is not enlarged. The appendix is normal. Series 3 image 76. The bladder is normal. Bowel-gas pattern is normal. CT/Abdomen/Pelvis W IV Cont ONLY IMPRESSION: New elevation of the right hemidiaphragm with right lower lobe airspace disease consolidation and many new calcified hilar and right lung granulomas. This could be due to phrenic nerve injury causing for elevation of the right hemidiaphragm. This could be due to of lymph nodes, some which are calcified causing bronchial wall obstruction and volume loss within the right lower lobe. This could also be due to infection on top of chronically atelectatic lung with a small right pleural effusion. Severe coronary artery calcific ASCVD. Individualized dose optimization techniques were used for this CT. at 2300 Reported and signed by: Jeremi Morris MD Electronically Signed: Jeremi Morris MD at 22:59 EDT Tel , Service support ,
[2019-10-19 22:00] VITALS: BP 181/110; PULSE 112; RESP 22; TEMP 37.4; O2SAT 98
--- NOTE | 2019-10-19 23:53 | HP.PCM_ITS ---
Problem List (1) Pulmonary embolism and infarction Status: Acute (2) Bilateral inguinal hernia Status: Chronic Qualifiers: Obstruction and gangrene presence: without obstruction or gangrene Recurrence: non-recurrent Qualified Code(s): K40.20 - Bilateral inguinal hernia, without obstruction or gangrene, not specified as recurrent (3) Umbilical hernia Status: Chronic Qualifiers: Obstruction and gangrene presence: without obstruction or gangrene Qualified Code(s): K42.9 - Umbilical hernia without obstruction or gangrene (4) HTN (hypertension) Status: Chronic History of Present Illness Date of Admission: 10/19/19 Chief Complaint: SHORTNESS OF BREATH The patient is a 59 year old M with a significant history of bilateral inguinal hernia; occasional tremors; DVT in left lower extremity who presents emergency department with 3 weeks history of shortness of breath that worsened on the day of presentation. Associated with his symptoms is dry cough and dry heaves. Also he reported right-sided chest pain. Patient complains of increasing weight of about 30 pounds in the last 6 months. He thinks the majority of the weight is in his abdomen. He denies abdominal pain . He denies vomiting but reports dry heaving. Patient denies any recent surgery. He had hernia repair in February 2019. He denies any immobility or recent travel. He denies any family history of clots. He had a colonoscopy about 5 years ago where 4 polyps were removed. Patient reports history of swelling on and off and his left leg which has been ongoing for less than 1 month. Of note patient reports history of DVT in his left lower extremities; one clot in his left groin and he had a clot in his left lower leg. Past Medical History Past Medical History (Chronic Problems): Chronic Problems (Last Reviewed 10/20/19 @ 01:[address] Milton Gómez MD) Bilateral inguinal hernia (Chronic) Umbilical hernia (Chronic) HTN (hypertension) (Chronic) Medical History: Medical History (Last Reviewed 10/20/19 @ 01:[address] Milton Gómez MD) Bilateral inguinal hernia K40.20 History of blood clots Z86.718 Left inguinal hernia K40.90 Occasional tremors R25.1 Umbilical hernia K42.9 Allergies Gadolinium-MRI Contrast Medium [CONTRAST] Allergy (Verified 10/19/19 20:35) DIZZY Iodinated Contrast Media [CONTRASTS] Allergy (Verified 10/19/19 20:35) DIZZY Home Medications: Ambulatory Orders Medication Instructions Recorded Primidone 1 tab PO QHS 02/03/19 tramadol 50 mg tablet 50 mg PO Q8H PRN #30 tab 03/16/19 Surgical History: Surgical History (Last Reviewed 10/20/19 @ 01:[address] Milton Gómez MD) H/O bilateral inguinal hernia repair Onset Date: ~02/16/19 Z98.890, Z87.19 History of left knee surgery Z98.890 History of umbilical hernia repair Onset Date: ~02/16/19 Z98.890, Z87.19 h/o cyst excision 08/31/17 history excision ganglion cyst right hand Surgical History: surgery for boils on the patient's right lower leg and left upper thigh Smoking Status: Current some day smoker Tobacco Use: Chew - *Family History Maternal History Items: - - Denies that his mother had any medical condition. Report that her mother in her old age. Paternal History Items: Heart Disease Review of Systems Constitutional: Reports: Weight Change - Reports about 30 pounds in the last 6 months.. Denies: Chills, Fever HEENT: Denies: Head Aches, Sinus Congestion, Sinus Drainage Cardiovascular: Reports: Chest Pain. Denies: Palpitations Respiratory: Reports: Cough, Shortness of breath at rest. Denies: Sputum production Gastrointestinal: Reports: Nausea. Denies: Vomiting Genitourinary: Denies: Dysuria Musculoskeletal: Denies: Joint Pain, Joint Tenderness Skin: Denies: Rash, Wounds Neurological: Denies: Numbness, Tingling, Focal weakness Psychiatric: Denies: Anxiety, Depression, Homicidal Ideations, Suicidal Ideations Hematologic/ Lymphatic: Denies: Easy Bruising, Easy Bleeding VTE Information - Inpt Only VTE Present on Admission: Yes - Pulmonary embolism VTE Mechan Device Prophylaxis: None VTE Pharm Prophylaxis ordered?: Yes Patient Problems: Active and Suspected Problems (Last Reviewed 10/20/19 @ 01:[address] Milton Gómez MD) Pulmonary embolism and infarction (Acute) - Physical Exam Vitals/I&O's: Vital Signs Temp Pulse Resp BP Pulse Ox 99.4 F H 112 H 22 H 181/110 H 98 10/19/19 22:00 10/19/19 22:00 10/19/19 22:00 10/19/19 22:00 10/19/19 22:00 Oxygen Flow Rate (L/min) 2 Oxygen Delivery Method Nasal Cannula Weight: 103.7 kg Body Mass Index (BMI) 32.8 General: Alert, Oriented x3, Cooperative HEENT: Atraumatic, PERRLA, EOMI, Normocephalic Neck: Supple, No JVD, Negative Carotid Bruits Lungs: Clear to auscultation, Normal air movement, No rhonchi, No wheeze, No rales, Tachypneic Cardiovascular: Normal S1, Normal S2, No murmurs, Tachycardic Abdomen: Bowel Sounds Present, Soft, Non Tender Extremities: No edema, Capillary Refill Less than 3 Seconds Skin: No rashes, No breakdown Musculoskeletal: No Tenderness to Palpation of Joints or Extremities Neurological: Cranial nerves II-XII grossly intact Psych/Mental Status: Normal Affect, Appropriate Laboratory Results 10/19/19 20:15: WBC Cancelled, Corrected WBC Cancelled, RBC Cancelled, Hgb Cancelled, Hct Cancelled, MCV Cancelled, MCH Cancelled, MCHC Cancelled, RDW Std Deviation Cancelled, RDW Coeff of Jose Cruz Cancelled, Plt Count Cancelled, MPV Cancelled, Immature Gran % (Auto) Cancelled, Neut % (Auto) Cancelled, Lymph % (Auto) Cancelled, [place] % (Auto) Cancelled, Eos % (Auto) Cancelled, Baso % (Auto) Cancelled, Absolute Neuts (auto) Cancelled, Absolute Lymphs (auto) Cancelled, Total Counted Cancelled, Neutrophils % (Manual) Cancelled, Band Neutrophils % Cancelled, Lymphocytes % (Manual) Cancelled, Monocytes % (Manual) Cancelled, Eosinophils % (Manual) Cancelled, Basophils % (Manual) Cancelled, Metamyelocytes % Cancelled, Myelocytes % Cancelled, Promyelocytes % Cancelled, Blast Cells % Cancelled, Plasma Cell % (Manual) Cancelled, Other Cells % Cancelled, Nucleated RBC % Cancelled, Nucleated RBCs/100 WBC Cancelled, Differential Comment Cancelled, Diff Path Review Cancelled, Hypersegmented Neuts Cancelled, Atypical Lymphocytes Cancelled, Reactive Lymphocytes Cancelled, Smudge Cells Cancelled, Toxic Granulation Cancelled, Toxic Vacuolation Cancelled, Dohle Bodies Cancelled, Efrain Rods Cancelled, Platelet Estimate Cancelled, Plt Morphology Comment Cancelled, RBC Morphology Cancelled, Polychromasia Cancelled, Hypochromasia Cancelled, Poikilocytosis Cancelled, Basophilic Stippling Cancelled, Anisocytosis Cancelled, Microcytosis Cancelled, Macrocytosis Cancelled, Spherocytes Cancelled, Sickle Cells Cancelled, Target Cells Cancelled, Tear Drop Cells Cancelled, Ovalocytes Cancelled, Stomatocytes Cancelled, Quinones[place] Bodies Cancelled, [place] Cells Cancelled, Bite Cells Cancelled, Crenated Cell Cancelled, Acanthocytes (Spur) Cancelled, Rouleaux Cancelled, Schistocytes Cancelled 10/19/19 20:15: PT 12.9, INR 1.0, APTT 21.7 L 10/19/19 20:15: Sodium 130 L, Potassium 4.2, Chloride 97 L, Carbon Dioxide 26.0, Anion Gap 7, BUN 15, Creatinine 1.10, Estim Creat Clear Calc 75.58, Est GFR (MDRD) Af Amer 88, Est GFR (MDRD) Non-Af 73, BUN/Creatinine Ratio 13.6, Glucose 115 H, Calcium 9.5, Total Bilirubin 0.90, AST 11 L, ALT 22, Alkaline Phosphatase 102, Troponin I < 0.015, Total Protein 8.4 H, Albumin 3.9, Globulin 4.5 H, Albumin/Globulin Ratio 0.9, Lipase 47 L 10/19/19 20:15: B-Natriuretic Peptide 26.9 10/19/19 21:35: WBC 9.0, RBC 4.77, Hgb 14.7, Hct 44.5, MCV 93.3, MCH 30.8, MCHC 33.0, RDW Std Deviation 42.3, RDW Coeff of Jose Cruz 12.3, Plt Count 201, MPV 8.9, Immature Gran % (Auto) 0.400, Neut % (Auto) 73.1 H, Lymph % (Auto) 13.3 L, [place] % (Auto) 11.9 H, Eos % (Auto) 1.0, Baso % (Auto) 0.3, Absolute Neuts (auto) 6.6, Absolute Lymphs (auto) 1.20, Nucleated RBC % 0 Current Medications Sodium Chloride () 1,000 mls @ 150 mls/hr IV .Q6H40M [facility] Last Admin: 10/19/19 21:07 Dose: 150 mls/hr Documented by: Assessment/Plan All Active Problems (Last Reviewed 10/20/19 @ 01:[address] Milton Gómez MD) Pulmonary embolism and infarction (Acute) The patient is a 59 year old M with a significant history of bilateral inguinal hernia; occasional tremors; DVT in left lower extremity who presents emergency department with 3 weeks history of shortness of breath that worsened on the day of presentation; tachycardia tachypnea and low-grade fever; and with radiographic suggestive of acute PE within the right lower lobe. Acute PE within the right lower lobe The CTA suggest the possibility of acute PE within the right lower lobe. Emergent department doctor reported discussed the case with radiologist who highly thought that patient might of had a PE and chest CTA showed poor contrast timing. Independent review of actual CTA imaging showed triangular consolidation in right lower lobe consistent with pulmonary infarct likely from PE. Discussed with emergent department doctor to start patient on Eliquis. Eliquis ordered for inpatient. We will trend troponin, get BNP and echocardiogram. Patient with no leukocytosis. Of note patient has low-grade fever. If patient does not improve consider antibiotics. Continue home tramadol for pain. Occasional tremors Home primidone continued. Calcific ASCVD Consider outpatient cardiology referral. DVT prophylaxis Not indicated since patient has been started on treatment dose of Eliquis for PE. Inpatient E&M: 08111 Init Hosp L3
[2019-10-19 23:54] VITALS: BP 135/95; PULSE 110; RESP 14; O2SAT 96
[2019-10-20] VITALS (15 sets, daily range): BP systolic 136–157; BP diastolic 86–109; PULSE 97–116; RESP 16–20; TEMP 36.6–37.1; O2SAT 89–98; BMI 32.8
[2019-10-20] MEDS: APIXABAN 5 MG TABLET 10 MG PO ×3 (00:30→22:27)
--- NOTE | 2019-10-20 03:52 | ECHOCS_ITS ---
Reason For Study: EMBOLI Procedure This was a 2D Doppler, Color Flow transthoracic echocardiogram. The exam was of poor technical quality due to suboptimal acoustic windows. Contrast injection was performed. Exam performed portable in patient room. Left Ventricle Normal LV size. The estimated ejection fraction is 60 %. Normal diastology for age. No regional wall motion abnormalities noted. Right Ventricle Normal RV size. Normal systolic function. Atria Normal left atrium. Normal right atrium. No doppler evidence for ASD. Mitral Valve There is no mitral valve stenosis. No mitral valve insufficiency. Tricuspid Valve There is no tricuspid stenosis. Unable to estimate RV systolic pressure due to inadequate jet, pulmonary artery pressure probably normal. No tricuspid valve insufficiency. Aortic Valve Trisinus/trileaflet aortic valve. There is no aortic stenosis. No aortic valve insufficiency. Pulmonic Valve There is no pulmonic valvular stenosis. No pulmonic valve insufficiency. Great Vessels Normal aortic root. Pericardium/Pleural No pericardial effusion. Medication Diluted definity 5.0ml given slow IV push to enhance endocardial definition. MMode/2D Measurements & Calculations LVIDd: 4.4 cm IVSd: 1.1 cm Ao root diam: 3.3 cm LVIDs: 3.0 cm LVPWd: 1.1 cm RVDd: 3.1 cm FS: 31.5 % LA dimension(2D): 3.6 cm Time Measurements MV dec time: 0.11 sec Doppler Measurements & Calculations MV E max lane: 77.7 cm/sec Lat Peak E' Lane: 6.1 cm/sec Med Peak E' Lane: 7.4 cm/sec MV A max lane: 111.4 cm/sec E/E' lat: 12.7 E/E' med: 10.5 MV E/A: 0.70 Ao V2 max: 110.3 cm/sec LV V1 max: 109.9 cm/sec TR max lane: 264.3 cm/sec Ao max P.9 mmHg LV V1 max P.8 mmHg TR max P.9 mmHg Interpretation Summary The estimated ejection fraction is 60 %. No significant valvular abormalities The study was technically difficult. Contrast injection was performed. Ordering Physician: Milton Gómez Referring Physician: JAISON MORRISON Performed By: Navya Caballero RDCS, RVT
[2019-10-20] MEDS: traMADol 50 MG Tablet PO ×2 (04:22→22:27)
[2019-10-20 08:09] LABS: Absolute Lymphocyte Count 1.46 X10^3/uL (0.83-4.51); Absolute Neutrophil Count 5.2 X10^3/uL (2.0-7.7); Basophil# 0.03 X10^3/uL; Basophil% 0.4 % (0-1); Eosinophil# 0.11 X10^3/uL; Eosinophils% 1.4 % (0-5); Hematocrit 41.8 % (40-54); Hemoglobin 13.9 g/dL (13.0-16.5); Lymphocyte # 1.46 X10^3/ul (4.0); Lymphocyte % 18.3 % (19-41); Mean Corp Hgb Conc 33.3 g/dL (32-36); Mean Corpuscular Hgb 31.2 pg (27.0-32.0); Mean Corpuscular Volume 93.7 fL (80-94); Mean Platelet Vol. 9.2 fl (6.2-12.0); Monocyte# 1.21 X10^3/uL; Monocyte% 15.1 % (0-10); NRBC Flagged by Analyzer 0 % (0-5); Neutrophil # 5.15 X10^3/uL (2.7-7.7); Neutrophil % 64.3 % (47-70); Platelet Count 211 K/mm3 (150-450); RBC Distribution Width CV 12.2 % (11.6-14.6); RBC Distribution Width SD 42.2 fl (35.1-43.9); Red Blood Count 4.46 M/mm3 (4.6-6.2)
[2019-10-20 08:37] LABS: Anion Gap 7 (5-15); BUN 14 mg/dL (7-18); BUN/Creat Ratio 14.8 RATIO (10-20); Calcium,Total 9.1 mg/dL (8.5-10.1); Chloride 99 mmol/L (98-107); Creatinine, Serum 0.95 mg/dL (0.70-1.30); EST Glomerular Filtration Rate 87 mL/min (>60); Est Glom Filt Rate - Afr Amer 105 mL/min (>60); Estimated Creatinine Clearance 87.51 ml/min; Glucose 99 mg/dL (74-106); Potassium 4.4 mmol/L (3.5-5.1); Sodium Level 131 mmol/L (136-145)
[2019-10-20 09:06] LABS: BNP,B-Type NATRIURETIC PEPTIDE 42.2 pg/mL (0-100)
--- NOTE | 2019-10-20 10:55 | CASEMGMT ---
RN CM Face to Face with patient for initial transition planning/care coordination assessment. RN CM introduced self and role at [facility]. Patient lying in bed, alert and oriented. Patient willing to participate in assessment and is able to answer all questions appropriately. Care providers, pharmacy, and demographics verified. Patient wishes to discharge home, denies need for home health at this time. Patient states he has no further needs or concerns at this time. CM to follow for discharge planning needs that may arise. PCP: Hipolito Specialists: Guillermo WEINBERG Preferred Pharmacy: [facility] or [facility] Insurance: MD Prescription Benefit: [employer] (power[employer]) or [employer] Living Will/HPOA: Amy Shepherd, sister LNOK: daughter, sister Living Arrangements: patient lives alone in apart with stairs that he is able to ambulate. Patient states he is independent. Transportation: self, family DME/HHC: Patient states he has cane, walker, and grab bars. Patient denies previous HHC. Disposition Plan: Patient to discharge home with family support and follow-up plans in place. Bobbi URRUTIA, RN, CM
[2019-10-20] MEDS: Acetaminophen 325 MG Tablet 650 MG PO (11:21)
--- NOTE | 2019-10-20 11:54 | EKG12_ITS ---
Test Reason : SOB Blood Pressure : / mmHG Vent. Rate : 130 BPM Atrial Rate : 130 BPM P-R Int : 128 ms QRS Dur : 086 ms QT Int : 286 ms P-R-T Axes : 061 084 037 degrees QTc Int : 420 ms Sinus tachycardia Otherwise normal ECG Confirmed by ARMANDO TRAVIS, KATY ([id number]), society editor VAUGHN MAZARIEGOS ([id number]) on 10/24/2019 1:02:29 PM Referred By: Milton Gómez Confirmed By:KATY ROBERTS MD
--- NOTE | 2019-10-20 11:59 | PN_ITS ---
Patient Problems: Active and Suspected Problems (Last Reviewed 10/20/19 @ 01:[address] Milton Gómez MD) Pulmonary embolism and infarction (Acute) Subjective: Patient seen and examined. He was admitted with a complaint of shortness of breath and chest pain and found to have PE. He has a history of DVT of the left lower extremity in 2017. Patient states he was on Eliquis for about 3 months. However afterwards he had some pills left and states that whenever he notices lower extremity swelling in his leg, he takes Eliquis to help with the swelling. He states he thinks the Eliquis helps with the swelling though he cannot see if he has had another blood clot since then. He states he took Eliquis for leg swelling for about 1 to 2 weeks recently. He started becoming short of breath which persisted so he came into the ED. He has not had any recent surgery or any long distance travel. CTA of the chest done showed possibility of subacute PE within the right lower and was difficult to assess due to timing of the contrast bolus contrast with the pulmonary veins in the thoracic aorta above the pulmonary arteries. He also had an area of consolidation within the right lower lobe with small pleural effusion thought to be a pulmonary infarct. He is currently on Eliquis. Patient seen and examined. His shortness of breath has improved. He was on 2 L of oxygen. He denies any chest pain, nausea vomiting. Patient was tachycardic on admission with heart rate up in the 140s. This is improved but heart rate still remains elevated. Been in the low 110s.Sodium is 130 to 131. Vitals/I&O's: Vital Signs Temp Pulse Resp BP Pulse Ox 98.8 F 112 H 20 H 136/95 H 93 10/20/19 08:43 10/20/19 10:48 10/20/19 08:43 10/20/19 08:43 10/20/19 11:31 Oxygen Flow Rate (L/min) 2 Oxygen Delivery Method Nasal Cannula Weight: 228 lb 6.382 oz Body Mass Index (BMI) 32.8 Intake and Output for Last 24 Hours 10/18/19 10/19/19 10/20/19 23:59 23:59 23:59 Intake Total 1400 / 1400 Balance 1400 / 1400 General: Alert, Oriented x3, Cooperative, No apparent distress HEENT: Atraumatic, PERRLA, EOMI, Normocephalic Oral: Moist Mucosa Neck: Supple, No JVD, Negative Carotid Bruits Lungs: Clear to auscultation, Normal air movement, No rhonchi, No wheeze Cardiovascular: Regular Rhythm, Normal S1, Normal S2, No murmurs, Tachycardic Abdomen: Bowel Sounds Present, Soft, Non Tender, Non-Distended, No Hepato- splenomegaly Extremities: No clubbing, No cyanosis, Capillary Refill Less than 3 Seconds, - - mild 1+ edema of the RLE Skin: No rashes, No breakdown Musculoskeletal: No Tenderness to Palpation of Joints or Extremities Lymphatic: No Cervical, Supraclavicular, or Inguinal Adenopathy Neurological: Cranial nerves II-XII grossly intact, Neuro grossly intact, Motor Exam 5/5 strength throughout Psych/Mental Status: Normal Affect, Appropriate, Alert and oriented to time, place, person, mood and affect Laboratory Results 10/19/19 20:15: WBC Cancelled, Corrected WBC Cancelled, RBC Cancelled, Hgb Cancelled, Hct Cancelled, MCV Cancelled, MCH Cancelled, MCHC Cancelled, RDW Std Deviation Cancelled, RDW Coeff of Jose Cruz Cancelled, Plt Count Cancelled, MPV Cancelled, Immature Gran % (Auto) Cancelled, Neut % (Auto) Cancelled, Lymph % (Auto) Cancelled, [place] % (Auto) Cancelled, Eos % (Auto) Cancelled, Baso % (Auto) Cancelled, Absolute Neuts (auto) Cancelled, Absolute Lymphs (auto) Cancelled, Total Counted Cancelled, Neutrophils % (Manual) Cancelled, Band Neutrophils % Cancelled, Lymphocytes % (Manual) Cancelled, Monocytes % (Manual) Cancelled, Eosinophils % (Manual) Cancelled, Basophils % (Manual) Cancelled, Metamyelocytes % Cancelled, Myelocytes % Cancelled, Promyelocytes % Cancelled, Blast Cells % Cancelled, Plasma Cell % (Manual) Cancelled, Other Cells % Cancelled, Nucleated RBC % Cancelled, Nucleated RBCs/100 WBC Cancelled, Differential Comment Cancelled, Diff Path Review Cancelled, Hypersegmented Neuts Cancelled, Atypical Lymphocytes Cancelled, Reactive Lymphocytes Cancelled, Smudge Cells Cancelled, Toxic Granulation Cancelled, Toxic Vacuolation Cancelled, Dohle Bodies Cancelled, Efrain Rods Cancelled, Platelet Estimate Cancelled, Plt Morphology Comment Cancelled, RBC Morphology Cancelled, Polychromasia Cancelled, Hypochromasia Cancelled, Poikilocytosis Cancelled, Basophilic Stippling Cancelled, Anisocytosis Cancelled, Microcytosis Cancelled, Macrocytosis Cancelled, Spherocytes Cancelled, Sickle Cells Cancelled, Target Cells Cancelled, Tear Drop Cells Cancelled, Ovalocytes Cancelled, Stomatocytes Cancelled, [place] Bodies Cancelled, Elise Cells Cancelled, Bite Cells Cancelled, Crenated Cell Cancelled, Acanthocytes (Spur) Cancelled, Rouleaux Cancelled, Schistocytes Cancelled 10/19/19 20:15: PT 12.9, INR 1.0, APTT 21.7 L 10/19/19 20:15: Sodium 130 L, Potassium 4.2, Chloride 97 L, Carbon Dioxide 26.0, Anion Gap 7, BUN 15, Creatinine 1.10, Estim Creat Clear Calc 75.58, Est GFR (MDRD) Af Amer 88, Est GFR (MDRD) Non-Af 73, BUN/Creatinine Ratio 13.6, Glucose 115 H, Calcium 9.5, Total Bilirubin 0.90, AST 11 L, ALT 22, Alkaline Phosphatase 102, Troponin I < 0.015, Total Protein 8.4 H, Albumin 3.9, Globulin 4.5 H, Albumin/Globulin Ratio 0.9, Lipase 47 L 10/19/19 20:15: B-Natriuretic Peptide 26.9 10/19/19 21:35: WBC 9.0, RBC 4.77, Hgb 14.7, Hct 44.5, MCV 93.3, MCH 30.8, MCHC 33.0, RDW Std Deviation 42.3, RDW Coeff of Jose Cruz 12.3, Plt Count 201, MPV 8.9, Immature Gran % (Auto) 0.400, Neut % (Auto) 73.1 H, Lymph % (Auto) 13.3 L, [place] % (Auto) 11.9 H, Eos % (Auto) 1.0, Baso % (Auto) 0.3, Absolute Neuts (auto) 6.6, Absolute Lymphs (auto) 1.20, Nucleated RBC % 0 10/20/19 00:12: COVID-19 (CLAUDE) Not Detected 10/20/19 04:26: Troponin I < 0.015 10/20/19 07:40: B-Natriuretic Peptide 42.2 10/20/19 07:40: WBC 8.0, RBC 4.46 L, Hgb 13.9, Hct 41.8, MCV 93.7, MCH 31.2, MCHC 33.3, RDW Std Deviation 42.2, RDW Coeff of Jose Cruz 12.2, Plt Count 211, MPV 9.2, Immature Gran % (Auto) 0.500, Neut % (Auto) 64.3, Lymph % (Auto) 18.3 L, [place] % (Auto) 15.1 H, Eos % (Auto) 1.4, Baso % (Auto) 0.4, Absolute Neuts (auto) 5.2, Absolute Lymphs (auto) 1.46, Nucleated RBC % 0 10/20/19 07:40: Sodium 131 L, Potassium 4.4, Chloride 99, Carbon Dioxide 25.0, Anion Gap 7, BUN 14, Creatinine 0.95, Estim Creat Clear Calc 87.51, Est GFR (MDRD) Af Amer 105, Est GFR (MDRD) Non-Af 87, BUN/Creatinine Ratio 14.8, Glucose 99, Calcium 9.1 10/20/19 07:40: Troponin I < 0.015 10/20/19 11:08: Troponin I Pending Diagnostic Data Chest X-Ray 10/19/19 20:49 IMPRESSION: No acute thoracic pathology. Electronically Signed: Shabbir Manuelito, at 21:05 EDT Tel , Service support , Abdomen/Pelvis CT 10/19/19 21:45 IMPRESSION: New elevation of the right hemidiaphragm with right lower lobe airspace disease consolidation and many new calcified hilar and right lung granulomas. This could be due to phrenic nerve injury causing for elevation of the right hemidiaphragm. This could be due to of lymph nodes, some which are calcified causing bronchial wall obstruction and volume loss within the right lower lobe. This could also be due to infection on top of chronically atelectatic lung with a small right pleural effusion. Severe coronary artery calcific ASCVD. Individualized dose optimization techniques were used for this CT. at 2300 Reported and signed by: Jeremi Morris MD Electronically Signed: Jeremi Morris MD at 22:59 EDT Tel , Service support , Chest CTA 10/19/19 21:45 IMPRESSION: It is possible that there is some acute PE within the right lower lobe. It is difficult to assess on this study due to timing of the contrast bolus greatest for the pulmonary veins in the thoracic aorta than the pulmonary arteries. Series 2 image 114, however, suggest the possibility of acute PE within the right lower lobe. If this is acute PE with this area of consolidation within the right lower lobe with small pleural effusion this is possibly a pulmonary infarct Additionally, however, there is some new right hilar mediastinal and right lower lobe calcified granulomatous disease. Is feasible that there has been bronchial obstruction and atelectasis and postobstructive pneumonia with small right pleural effusion neoplasias within the differential but considered less likely. Individualized dose optimization techniques were used for this CT. at 2316 Reported and signed by: Jeremi Morris MD Electronically Signed: Jeremi Morris MD at 23:14 EDT Tel , Service support , ADDENDUM: 10/19/19 2327 IMPRESSION: It is possible that there is some acute PE within the right lower lobe. It is difficult to assess on this study due to timing of the contrast bolus greatest for the pulmonary veins in the thoracic aorta than the pulmonary arteries. Series 2 image 114, however, suggest the possibility of acute PE within the right lower lobe. If this is acute PE with this area of consolidation within the right lower lobe with small pleural effusion this is possibly a pulmonary infarct Additionally, however, there is some new right hilar mediastinal and right lower lobe calcified granulomatous disease. Is feasible that there has been bronchial obstruction and atelectasis and postobstructive pneumonia with small right pleural effusion neoplasias within the differential but considered less likely. Individualized dose optimization techniques were used for this CT. at 2316 Reported and signed by: Jeremi Morris MD N.B. : The above information has been verbally conveyed by Jeremi Morris MD to Leo Nicholas MD, on 10/19/2019 23:21:00 (ET). Electronically Signed: Jeremi Morris MD at 23:14 EDT Tel , Service support , Current Medications Acetaminophen (Tylenol) 650 mg PO Q6H PRN PRN PRN Reason: Pain Score 1-10/Temp > 100.7 F Last Admin: 10/20/19 11:21 Dose: 650 mg Documented by: Apixaban (Eliquis) 10 mg PO BID BALDOMERO Last Admin: 10/20/19 08:45 Dose: 10 mg Documented by: Dextrose (D50w Syringe) 0 gm IV X1 PRN; Protocol PRN Reason: Hypoglycemia Glucagon () 1 mg IM .X1 PRN PRN Reason: Hypoglycemia Labetalol HCl (Trandate) 10 mg IV Q4H PRN PRN PRN Reason: SBP > 160 Melatonin (Melatonin) 3 mg PO QHS PRN PRN PRN Reason: INSOMNIA Ondansetron HCl (Zofran) 4 mg IV Q8H PRN PRN PRN Reason: NAUSEA/VOMITING Primidone (Mysoline) 50 mg PO QHS BALDOMERO Sodium Chloride () 10 - 40 ml IV UD PRN PRN Reason: SALINE FLUSH Tramadol HCl (Ultram) 50 mg PO Q8H PRN PRN PRN Reason: pain 1-1010 Last Admin: 10/20/19 04:22 Dose: 50 mg Documented by: STROKE Vital Signs/Narrative: Vital Signs Temp Pulse Resp BP Pulse Ox Pulse Ox Pulse Ox 10/20/19 11:31 89 93 10/20/19 10:48 112 H 10/20/19 08:43 98.8 F 106 H 20 H 136/95 H 96 Medical Necessity - Tobacco Use Smoking Status: Current some day smoker Tobacco Use: Chew Assessment/Plan All Active Problems (Last Reviewed 10/20/19 @ 01:[address] Milton Gómez MD) Pulmonary embolism and infarction (Acute) 1. Acute right lower lobe PE * patient remains tachycardic, though this is improving. * on eliquis * troponin was negative; and EKG showed sinus tachycardia * BNP was also within normal limits. * 2D echo ordered and is pending. CTA showed consolidation in the right lower lobe consistent with pulmonary infarct. * This patient is still tachycardic, will keep patient for today and monitor. * Titrate oxygen to maintain saturation above 90%. 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 * 2. History of tremors: On primidone. DVT prophylaxis: On therapeutic Eliquis for PE Inpatient E&M: [id number] [facility] L2
[2019-10-20] MEDS: Primidone 50 MG Tablet PO (22:28)
[2019-10-20] MEDS: 0.9% Saline Lock 10 ML Syringe IV (22:31)
[2019-10-20] MEDS: Ondansetron 4 MG/2 ML Vial IV (22:31)
[2019-10-21 02:47] VITALS: BP 145/97; PULSE 115; RESP 19; TEMP 36.9; O2SAT 94
[2019-10-21 03:43] VITALS: PULSE 101
[2019-10-21 06:30] VITALS: PULSE 93
[2019-10-21 07:35] VITALS: O2SAT 96
[2019-10-21 08:41] VITALS: BP 127/94; PULSE 98; RESP 18; TEMP 36.8; O2SAT 96
[2019-10-21 08:43] VITALS: BP 127/94; PULSE 98
[2019-10-21] MEDS: Metoprolol Tartrate 25 MG Tablet 12.5 MG PO (08:43)
[2019-10-21] MEDS: APIXABAN 5 MG TABLET 10 MG PO (08:44)
--- NOTE | 2019-10-21 10:51 | PCM.DC ---
- Discharge Diagnoses Current Active Problems: Current Active and Chronic Problems (Last Reviewed 10/20/19 @ 01:[address] Milton Gómez MD) Pulmonary embolism and infarction (Acute) You will use the following diet at home:: Cardiac Your food should be the consistency of: Regular Your liquids should be the consistency of: Regular/Thin Discharge Activity: Return to Normal Activity Weight Bearing Status: Weight bearing as tolerated Call your doctor if you observe: Fever of 101 or Higher, Shortness of breath, Fainting spells, Swelling in the ankles, Chest pain, Uncontrolled pain Instructions: Pulmonary Embolism Allergies/Adverse Reactions: Allergies Gadolinium-MRI Contrast Medium [CONTRAST] Allergy (Verified 10/19/19 20:35) DIZZY Iodinated Contrast Media [CONTRASTS] Allergy (Verified 10/19/19 20:35) DIZZY Medications to take at Discharge Primidone 1 tab PO QHS 02/03/19 tramadol 50 mg tablet 50 mg PO Q8H PRN #30 tab 03/16/19 Apixaban [Eliquis] 10 mg PO UD #60 tab 10/21/19 Metoprolol Tartrate [Lopressor (beta jaiden)] 12.5 mg PO BID #30 tab 10/21/19 The following prescriptions were given: Apixaban [Eliquis] 10 mg PO UD #60 tab Transmission Status: Pending to [id number] Metoprolol Tartrate [Lopressor (beta jaiden)] 12.5 mg PO BID #30 tab Transmission Status: Pending to [id number] Primary Care Physician: Jeffrey Mcmillan Chi, MD [Primary Care Provider] - Please follow up with your Primary Care Physician in: 1-2 weeks Test Results: Test results from this visit will be discussed in further detail at your follow-up appointment, if applicable. Proposed Discharge Date: 10/21/19
--- NOTE | 2019-10-21 10:56 | DS.PCM_ITS ---
Discharge Date and Diagnosis Date of Admission: 10/19/19 Date of Discharge: 10/21/19 - Primary Discharge Diagnosis Acute Problems: Active Problems (Last Reviewed 10/20/19 @ 01:[address] Milton Gómez MD) Pulmonary embolism and infarction (Acute) - Secondary Discharge Diagnosis Chronic Problems: Chronic Problems (Last Reviewed 10/20/19 @ 01:[address] Milton Gómez MD) Bilateral inguinal hernia (Chronic) Umbilical hernia (Chronic) HTN (hypertension) (Chronic) Hospital Course and Treatment Imaging Results: Diagnostic Data Chest X-Ray 10/19/19 20:49 IMPRESSION: No acute thoracic pathology. Electronically Signed: Shabbir Billings, at 21:05 EDT Tel , Service support , Abdomen/Pelvis CT 10/19/19 21:45 IMPRESSION: New elevation of the right hemidiaphragm with right lower lobe airspace disease consolidation and many new calcified hilar and right lung granulomas. This could be due to phrenic nerve injury causing for elevation of the right hemidiaphragm. This could be due to of lymph nodes, some which are calcified causing bronchial wall obstruction and volume loss within the right lower lobe. This could also be due to infection on top of chronically atelectatic lung with a small right pleural effusion. Severe coronary artery calcific ASCVD. Individualized dose optimization techniques were used for this CT. at 2300 Reported and signed by: Jeremi Morris MD Electronically Signed: Jeremi Morris MD at 22:59 EDT Tel , Service support , Chest CTA 10/19/19 21:45 IMPRESSION: It is possible that there is some acute PE within the right lower lobe. It is difficult to assess on this study due to timing of the contrast bolus greatest for the pulmonary veins in the thoracic aorta than the pulmonary arteries. Series 2 image 114, however, suggest the possibility of acute PE within the right lower lobe. If this is acute PE with this area of consolidation within the right lower lobe with small pleural effusion this is possibly a pulmonary infarct Additionally, however, there is some new right hilar mediastinal and right lower lobe calcified granulomatous disease. Is feasible that there has been bronchial obstruction and atelectasis and postobstructive pneumonia with small right pleural effusion neoplasias within the differential but considered less likely. Individualized dose optimization techniques were used for this CT. at 2316 Reported and signed by: Jeremi Morris MD Electronically Signed: Jeremi Morris MD at 23:14 EDT Tel , Service support , ADDENDUM: 10/19/19 2327 IMPRESSION: It is possible that there is some acute PE within the right lower lobe. It is difficult to assess on this study due to timing of the contrast bolus greatest for the pulmonary veins in the thoracic aorta than the pulmonary arteries. Series 2 image 114, however, suggest the possibility of acute PE within the right lower lobe. If this is acute PE with this area of consolidation within the right lower lobe with small pleural effusion this is possibly a pulmonary infarct Additionally, however, there is some new right hilar mediastinal and right lower lobe calcified granulomatous disease. Is feasible that there has been bronchial obstruction and atelectasis and postobstructive pneumonia with small right pleural effusion neoplasias within the differential but considered less likely. Individualized dose optimization techniques were used for this CT. at 2316 Reported and signed by: Jeremi Morris MD N.B. : The above information has been verbally conveyed by Jeremi Morris MD to Leo Nicholas MD, on 10/19/2019 23:21:00 (ET). Electronically Signed: Jeremi Morris MD at 23:14 EDT Tel , Service support , Operations: None Procedures: 2-D Echocardiogram Summary of Care Provided: The patient is a 59 year old M with a PMH as outlined, including history of DVT in LLE in 2017, bilateral inguinal hernia and hypertension. He was admitted via the ED on 10/19/2019 with a complaint of shortness of breath which had been going for about 3 weeks prior to presentation, and worsened on the day of presentation. He had associated shortness of breath and dry heaves as well as right sided chest pain. he also thought he had some weight gain of ~ 30 pounds in [facility] last 6 months. He hadnt had any long distance travel and had had hernia repair in February 2019. It seems the cause of his previous DVT in 2016 was not known, and it seemed it was unprovoked. He had had a colonoscopy ~ 5 years ago where 4 polyps were removed. CTA of the chest done showed possibility of acute PE in the right lower lobe and it was difficult to assess on the study due to the timing of the contrast bolus greatest for the pulmonary veins in the thoracic aorta than the pulmonary arteries; the imaging however suggest the possibility of acute PE in the right lower lobe with an area of consolidation within the right lower lobe with small pleural effusion suggesting a pulmonary infarct. Patient was admitted and managed for PE. Patient was started on Eliquis. Patient subsequently inform medical team that he had some left over Eliquis from back in 2017 when he had DVT, and had been taking it periodically when his leg got swollen as he thought it helped with the swelling of his leg. The last time he had taken it was about a week prior to admission. Duplex of the lower extremities were not done as it would not change the management plan. Patient was successfully weaned off of oxygen. He was intially tachycardic, and though this did improve, he remained mildly tachycardic. EKG showed it was sinus tachycardia. Patient's blood pressure was also elevated, so he was started on PO metoprolol 12.5mg bid, which would also help with tachcyardia, though tachycardia would likely improve once PE broke down and was resorbed. Patient remained stable and was discharged home on 10/21/2019 to take p.o. Eliquis 10 mg twice daily till 10/27/2019 and then to continue with 5 mg twice daily from 10/28/2019. He is to follow-up with his primary care doctor within 1 to 2 weeks. Patient counseled that he will may need hypercoagulable screen to check for reason why he has had PE and would also need age-appropriate screening for malignancy. He states his last colonoscopy was 5 years ago where he had 4 polyps removed. Patient seen and examined prior to discharge. He had no complaints and felt well. Review of systems was otherwise negative. O/e Vital Signs Temp Pulse Resp BP Pulse Ox 98.3 F 98 18 127/94 H 96 10/21/19 08:41 10/21/19 08:43 10/21/19 08:41 10/21/19 08:43 10/21/19 08:41 General: Alert, Oriented x3, Cooperative, No apparent distress HEENT: Atraumatic, PERRLA, EOMI, Normocephalic Oral: Moist Mucosa Neck: Supple, No JVD, Negative Carotid Bruits Lungs: Clear to auscultation, Normal air movement, No rhonchi, No wheeze Cardiovascular: Regular Rhythm, Normal S1, Normal S2, No murmurs, regular rate Abdomen: Bowel Sounds Present, Soft, Non Tender, Non-Distended, No Hepato- splenomegaly Extremities: No clubbing, No cyanosis, Capillary Refill Less than 3 Seconds, - - mild 1+ edema of the RLE Skin: No rashes, No breakdown Musculoskeletal: No Tenderness to Palpation of Joints or Extremities Lymphatic: No Cervical, Supraclavicular, or Inguinal Adenopathy Neurological: Cranial nerves II-XII grossly intact, Neuro grossly intact, Motor Exam 5/5 strength throughout Psych/Mental Status: Normal Affect, Appropriate, Alert and oriented to time, place, person, mood and affect Plan is for discharge home as above. - Physical Exam Vitals/I&O's: Vital Signs Temp Pulse Resp BP Pulse Ox 98.3 F 98 18 127/94 H 96 10/21/19 08:41 10/21/19 08:43 10/21/19 08:41 10/21/19 08:43 10/21/19 08:41 Oxygen Flow Rate (L/min) 2 Oxygen Delivery Method Room Air Weight: 228 lb 6.382 oz Body Mass Index (BMI) 32.8 Intake and Output for Last 24 Hours 10/19/19 10/20/19 10/21/19 23:59 23:59 23:59 Intake Total 2260 / 2260 475 / 475 Balance 2260 / 2260 475 / 475 Laboratory Results 10/20/19 11:08: Troponin I < 0.015 Current Medications Acetaminophen (Tylenol) 650 mg PO Q6H PRN PRN PRN Reason: Pain Score 1-10/Temp > 100.7 F Last Admin: 10/20/19 11:21 Dose: 650 mg Documented by: Apixaban (Eliquis) 10 mg PO BID [facility] Last Admin: 10/21/19 08:44 Dose: 10 mg Documented by: Dextrose (D50w Syringe) 0 gm IV X1 PRN; Protocol PRN Reason: Hypoglycemia Glucagon () 1 mg IM .X1 PRN PRN Reason: Hypoglycemia Labetalol HCl (Trandate) 10 mg IV Q4H PRN PRN PRN Reason: SBP > 160 Melatonin (Melatonin) 3 mg PO QHS PRN PRN PRN Reason: INSOMNIA Metoprolol Tartrate (Lopressor (Beta Shahbaz)) 12.5 mg PO BID [facility] Last Admin: 10/21/19 08:43 Dose: 12.5 mg Documented by: Ondansetron HCl (Zofran) 4 mg IV Q8H PRN PRN PRN Reason: NAUSEA/VOMITING Last Admin: 10/20/19 22:31 Dose: 4 mg Documented by: Primidone (Mysoline) 50 mg PO QHS [facility] Last Admin: 10/20/19 22:28 Dose: 50 mg Documented by: Sodium Chloride () 10 - 40 ml IV UD PRN PRN Reason: SALINE FLUSH Last Admin: 10/20/19 22:31 Dose: 10 ml Documented by: Tramadol HCl (Ultram) 50 mg PO Q8H PRN PRN PRN Reason: pain 1-10/10 Last Admin: 10/20/19 22:27 Dose: 50 mg Documented by: Discharge Diet: Low fat/ Low Cholesterol Discharge Activity: Return to Normal Activity Weight Bearing Status: Weight bearing as tolerated Call your doctor if you observe: Fever of 101 or Higher, Shortness of breath, Fainting spells, Swelling in the ankles, Chest pain, Uncontrolled pain Home Medications: Medications to take at Discharge Primidone 1 tab PO QHS 02/03/19 tramadol 50 mg tablet 50 mg PO Q8H PRN #30 tab 03/16/19 Apixaban [Eliquis] 10 mg PO UD #60 tab 10/21/19 Metoprolol Tartrate [Lopressor (beta shahbaz)] 12.5 mg PO BID #30 tab 06/14/20 Following Prescrptions Were Given to Patient: Apixaban [Eliquis] 10 mg PO UD #60 tab Transmission Status: Received by [id number] Metoprolol Tartrate [Lopressor (beta shahbaz)] 12.5 mg PO BID #30 tab Transmission Status: [id number] Primary Care Physician: Jeffrey Mcmillan Chi, MD [Primary Care Provider] - Please follow up with your Primary Care Physician in: 1-2 weeks Patient Instructions: Pulmonary Embolism Disposition: Home Minutes spent on discharge:: 45 Patient Condition:: Stable Medical Necessity - Tobacco Use Smoking Status: Current some day smoker Tobacco Use: Chew Meaningful Use Info Meaningful Use Diagnoses (Choose all that apply): VTE - VTE Anticoag overlap given w/in hospital stay or rx'd at dc?: Yes Pt receive overlap for 5 days?: No Reason overlap not ordered, prescribed, or given for 5 days: Procedure Not Indicated Inpatient E&M: [id number] [facility]
== END 2019-10-21 12:33 | disposition home or self-care (01) | DRG 176 ==
LOC: ED 23:54 → PCU 10-20 03:11
PROVIDERS: Admitting Provider Hospitalist; Emergency Provider Emergency Medicine; PCP Family Medicine Geriatric Medicine; Referring Provider Hospitalist; Visit Provider Student in an Organized Health Care Education/Training Program
DX: I26.99 Other pulmonary embolism without acute cor pulmonale (principal); I10 Essential (primary) hypertension; R00.0 Tachycardia, unspecified; I25.10 Atherosclerotic heart disease of native coronary artery without angina pectoris; R25.1 Tremor, unspecified; F17.200 Nicotine dependence, unspecified, uncomplicated; Z79.899 Other long term (current) drug therapy; Z86.718 Personal history of other venous thrombosis and embolism
CPT/HCPCS: 36415; 71045; 71275; 74177; 80048; 80053; 83690; 83880; 84484; 85025; 85610; 85730; 87635; 93005; 93306; 97802; 99285; G2023; J7030; Q9957; Q9967; A4216; C8929; J2405; U0003

== ENCOUNTER → 2020-03-13 09:28 | Outpatient (CLI) | payer MEDICAID, SELFPAY ==
[2020-03-06 15:42] VITALS: BMI 34.7
[2020-03-13 12:25] LABS: Absolute Lymphocyte Count 2.07 X10^3/uL (0.83-4.51); Basophil# 0.04 X10^3/uL; Basophil% 0.7 % (0-1); Eosinophil# 0.18 X10^3/uL; Hematocrit 47.4 % (40-54); Hemoglobin 15.3 g/dL (13.0-16.5); Lymphocyte # 2.07 X10^3/ul (4.0); Lymphocyte % 34.7 % (19-41); Mean Corp Hgb Conc 32.3 g/dL (32-36); Mean Corpuscular Hgb 30.1 pg (27.0-32.0); Mean Corpuscular Volume 93.3 fL (80-94); Mean Platelet Vol. 9.3 fl (6.2-12.0); Monocyte# 0.71 X10^3/uL; Monocyte% 11.9 % (0-10); NRBC Flagged by Analyzer 0 % (0-5); Neutrophil # 2.96 X10^3/uL (2.7-7.7); Neutrophil % 49.5 % (47-70); Platelet Count 221 K/mm3 (150-450); RBC Distribution Width CV 13.2 % (11.6-14.6); RBC Distribution Width SD 45.2 fl (35.1-43.9); Red Blood Count 5.08 M/mm3 (4.6-6.2)
[2020-03-13 13:12] LABS: ALB/GLOB Ratio 0.9 RATIO (0.9-2.4); AST(SGOT) 29 U/L (15-37); Alanine Aminotransfer ALT/SGPT 39 U/L (16-61); Albumin, Serum 3.7 g/dL (3.2-5.0); Alkaline Phosphatase 91 U/L (45-117); Anion Gap 6 (5-15); BUN 18 mg/dL (7-18); BUN/Creat Ratio 17.1 RATIO (10-20); Calcium,Total 9.4 mg/dL (8.5-10.1); Chloride 104 mmol/L (98-107); Cholesterol 222 mg/dL (200); Creatinine, Serum 1.05 mg/dL (0.70-1.30); EST Glomerular Filtration Rate 77 mL/min (>60); Est Glom Filt Rate - Afr Amer 93 mL/min (>60); Globulin 3.9 g/dL (2.2-4.2); Glucose 100 mg/dL (74-106); High Density Lipoprotein 55 mg/dL; PSA,Total - Annual Screen 1.63 ng/mL (0.00-4.00); Potassium 4.5 mmol/L (3.5-5.1); Protein, Total 7.6 g/dL (6.4-8.2); Sodium Level 137 mmol/L (136-145); Thyroid Stim Hormone (TSH) 3.14 uIU/mL (0.358-3.74); Triglycerides 134 mg/dL; Very Low Density Lipoprotein 27 mg/dL (5-40)
[2020-03-13 13:13] LABS: Hemoglobin A1c 5.7 % (3.8-5.6)
== END ==
PROVIDERS: PCP Internal Medicine; Referring Provider Internal Medicine; Visit Provider Internal Medicine
DX: I10 Essential (primary) hypertension (principal); E66.9 Obesity, unspecified; Z12.5 Encounter for screening for malignant neoplasm of prostate; Z86.711 Personal history of pulmonary embolism; Z86.718 Personal history of other venous thrombosis and embolism
CPT/HCPCS: 36415; 80053; 80061; 83036; 84153; 84443; 85025; G0103

== ENCOUNTER 2020-04-03 16:47 | Emergency (ER) | payer MEDICAID, OTHER, SELFPAY ==
[2020-03-06 15:42] VITALS: BMI 34.7
[2020-04-03 16:48] VITALS: BP 155/107; PULSE 117; RESP 17; TEMP 36.4; O2SAT 96; BMI 38.6
--- NOTE | 2020-04-03 17:06 | CT_ITS ---
STUDY: CT BRAIN WITHOUT CONTRAST REASON FOR EXAM: Male, 59 years old. Trauma, fall, abrasions to entire face. RADIATION DOSAGE (If Supplied By Facility): CTDIvol = ( 44.99 ) mGy, DLP = ( 846.73 ) mGycm TECHNIQUE: Transaxial CT imaging of the brain was performed without administration of intravenous contrast material. Individualized dose optimization techniques were used for this CT. COMPARISON: No relevant priors. FINDINGS: There is soft tissue swelling on the right more than left nasal and periorbital soft tissues with small locules of air. Nondisplaced nasal fractures are noted. Normal calvarium. Normal size ventricles and extra-axial spaces for the patient''s age. Normal white matter tracts of the cerebral hemispheres. Normal basal ganglia and thalami. Normal brainstem. Normal cerebellum. There is no intracranial hemorrhage. There are no findings of an acute ischemic infarction. Mild mucosal thickening of the left maxillary sinus and bilateral ethmoid air cells. CT/Brain/Head without Contrast IMPRESSION: 1. No acute intracranial hemorrhage or mass effect. 2. Paranasal and right periorbital soft tissue swelling with laceration and nondisplaced nasal fractures. Electronically Signed: Shaw Campbell MD (Brooks) at 17:38 EST , Service support ,
--- NOTE | 2020-04-03 17:06 | CT_ITS ---
STUDY: CT FACIAL BONES WITHOUT CONTRAST REASON FOR EXAM: Male, 59 years old. Trauma, fall, abrasions to entire face. RADIATION DOSAGE (If Supplied By Facility): CTDIvol = ( 29.38 ) mGy, DLP = ( 569.49 ) mGycm TECHNIQUE: The patient was scanned in a multi detector CT scanner. Sagittal and coronal images were reconstructed. Individualized dose optimization techniques were used for this CT. COMPARISON: None. FINDINGS: There is soft tissue swelling adjacent to the nose and right orbit with small locules of air. Normal orbital dumont and orbital contents. There is a nondisplaced nasal bone fractures. No additional fracture. There is mild mucosal thickening of the left maxillary sinus and bilateral ethmoid air cells. CT/Sinus/Facial Bone IMPRESSION: Nondisplaced nasal bone fractures. Paranasal and right vertebral soft tissue swelling laceration. Electronically Signed: Shaw Campbell MD (Brooks) at 17:44 EST , Service support ,
--- NOTE | 2020-04-03 17:06 | CT_ITS ---
STUDY: CT CERVICAL SPINE WITHOUT CONTRAST REASON FOR EXAM: Male, 59 years old. Trauma, fall, abrasions to entire face. RADIATION DOSAGE (If Supplied By Facility): CTDIvol = ( 27.49 ) mGy, DLP = ( 588.76 ) mGycm TECHNIQUE: High resolution transaxial imaging was performed without contrast material. Sagittal and coronal images were reconstructed. Individualized dose optimization techniques were used for this CT. COMPARISON: None FINDINGS: Normal craniovertebral junction. There are degenerative changes of the anterior atlantoaxial articulation. Normal odontoid process. Normal cervical lordosis. Normal vertebral bodies and posterior osseous elements. C2-3: Normal endplates. Normal disc height and morphology. Bilateral facet arthropathy with ankylosis of the right facet joint. Right foraminal narrowing noted. C3-4: Disc space narrowing with anterior spondylosis with posterior disc osteophyte complex. Left uncovertebral and facet arthropathy causing foraminal stenosis. There is canal narrowing. C4-5: Disc space narrowing with anterior spondylosis, posterior disc osteophyte complex and bilateral uncovertebral hypertrophy causing canal and foraminal stenosis. C5-6: Disc space narrowing with anterior spondylosis, posterior disc osteophyte complex and bilateral uncovertebral hypertrophy causing canal and foraminal stenosis. C6-7: Disc space narrowing with anterior spondylosis, posterior disc osteophyte complex and bilateral uncovertebral hypertrophy causing canal and foraminal stenosis. C7-T1: Normal endplates. Normal disc height and morphology. Normal central canal and intervertebral neuroforamina. There is atherosclerosis of the bilateral carotid arteries. CT/Spine Cervical without Contras IMPRESSION: 1. No cervical spine fracture or traumatic subluxation. 2. Multilevel degenerative changes with canal and foraminal stenosis. Electronically Signed: Shaw Campbell MD (Brooks) at 17:42 EST , Service support ,
--- NOTE | 2020-04-03 17:07 | ED.DCSUM_ITS ---
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 No other known details. Unknown if alcohol involved or not. Patient is extremely hard of hearing, which limits the mental status evaluation. Even when screaming in his ear, he sometimes gives inappropriate answers to my questions. Tetanus Immunization: Unknown - Past Medical History (1) Pulmonary embolism and infarction Status: Chronic (2) Arthritis Status: Chronic (3) HTN (hypertension) Status: Chronic Past Medical History - Allergies and Home Meds Allergies/Adverse Reactions: Allergies Gadolinium-MRI Contrast Medium [CONTRAST] Allergy (Verified 04/03/20 16:48) DIZZY Iodinated Contrast Media [CONTRASTS] Allergy (Verified 04/03/20 16:48) DIZZY Primary Care Physician: Denae Lofton MD [Primary Care Provider] - Surgical History: surgery for boils on the patient's right lower leg and left upper thigh Smoking Status: Former smoker - Family History Maternal Family History: Family History (Last Updated 03/04/20 @ 11:56 by Promise Linda) Other Arthritis Blood clot in vein CVA (cerebral vascular accident) Heart disease Hypertension Left inguinal hernia Myocardial infarction Occasional tremors Osteoporosis Thyroid disorder Family History: Reports: - - Denies that his mother had any medical condition. Report that her mother in her old age. Paternal Family History: Family History (Last Updated 03/04/20 @ 11:56 by Promise Linda) Other Arthritis Blood clot in vein CVA (cerebral vascular accident) Heart disease Hypertension Left inguinal hernia Myocardial infarction Occasional tremors Osteoporosis Thyroid disorder Family History: Reports: Heart Disease Review of Systems ROS: Unable to Obtain - Due to confusion, hard of hearing, or both ENT: Reports: - - Face/nasal pain and bleeding; difficulty breathing only because of amount of blood in his nostrils Physical Exam Vital Signs/Narrative: Vital Signs Temp Pulse Resp BP Pulse Ox 04/03/20 16:48 97.6 F L 117 H 17 155/107 H 96 Inital Vital Signs reviewed: Yes General: Well nourished, Well developed, - - Alert in no distress, backboarded and C-collared, supine Head: Normocephalic, Trauma - All facial, the rest of the scalp is atraumatic Eyes: Perrl, EOMI - Without entrapment, - - No proptosis or enophthalmos. ENT: TM's clear, No hemotympanum or drainage, Nasal trauma - Diffuse symmetric swelling and tenderness. Blood in both nostrils without active bleeding., - - Midface stable and nontender. lower lip laceration mostly on mucosa, extends a little onto devin, but not to the border. Neck: Nontender, Full ROM Cardiovascular: Regular rate, Regular rhythm, No murmurs, Tachycardia Respiratory: No distress, CTA bilaterally, Chest nontender - To lateral rib cage impression Abdomen: Soft, Nontender, Normal bowel sounds, Ventral hernia, Hernia reducible, - - Significant abdominal obesity limits the exam to some degree. No tenderness. Back: Nontender, - - Small soft tissue contusion right lower thoracic paraspinal area, no midline tenderness.. Negative for: Spinal Tenderness Extremeties: Abrasion left proximal lower leg, no bony tenderness, full range of motion of the knee. Painless passive range of motion of all joints of all 4 extremities, patient has increased tone in his lower extremities and difficult to tell if he is voluntarily doing this or if it is involuntary. Skin: Normal color, No rash, Trauma - laceration 4cm SQ mucosal mid-lower lip -- see HEENT. Multiple superficial abrasions throughout the face with associated swelling especially right periorbital. Neurological: Alert, Cranial nerves II-XII grossly intact, Normal Strength, Normal Sensation, Disoriented - Immediate evaluation due to very hard of hearing. Oriented to person. Can tell us aspects of his past medical history. Psychological: Normal affect, Normal Mood Diagnostic/Tx/Re-eval Impressions Brain CT 04/03/20 17:06 IMPRESSION: 1. No acute intracranial hemorrhage or mass effect. 2. Paranasal and right periorbital soft tissue swelling with laceration and nondisplaced nasal fractures. Electronically Signed: Shaw Campbell MD (Brooks) at 17:38 EST , Service support , Cervical Spine CT 04/03/20 17:06 IMPRESSION: 1. No cervical spine fracture or traumatic subluxation. 2. Multilevel degenerative changes with canal and foraminal stenosis. Electronically Signed: Shaw Campbell MD (Brooks) at 17:42 EST , Service support , Facial/Sinus 04/03/20 17:06 IMPRESSION: Nondisplaced nasal bone fractures. Paranasal and right vertebral soft tissue swelling laceration. Electronically Signed: Shaw Campbell MD (Brooks) at 17:44 EST , Service support , Chest X-Ray 04/03/20 17:25 IMPRESSION: Nonacute portable x-ray examination of the chest. Electronically Signed: Shaw Campbell MD (Brooks) at 18:04 EST , Service support , Pelvis X-Ray 04/03/20 17:25 IMPRESSION: Mild degenerative changes. No demonstrated fracture. Electronically Signed: Shaw Campbell MD (Brooks) at 18:01 EST , Service support , 04/03/20 17:06 Brain/Head without Contrast [CT] Stat Sinus/Facial Bone [CT] Stat Spine Cervical without Contras [CT] Stat 04/03/20 17:25 Chest 1 View (Portable) [RAD] Stat Pelvis 1 or 2 Views [RAD] Stat Laboratory Results 04/03/20 04/03/20 04/03/20 17:05 17:05 17:05 WBC 7.6 RBC 4.88 Hgb 15.1 Hct 44.9 MCV 92.0 MCH 30.9 MCHC 33.6 RDW Std Deviation 43.3 RDW Coeff of Jose Cruz 12.9 Plt Count 229 MPV 9.2 Immature Gran % (Auto) 0.100 Neut % (Auto) 46.2 L Lymph % (Auto) 37.7 [place] % (Auto) 12.3 H Eos % (Auto) 3.2 Baso % (Auto) 0.5 Absolute Neuts (auto) 3.5 Absolute Lymphs (auto) 2.85 Nucleated RBC % 0 PT Cancelled INR Cancelled APTT Cancelled Sodium 136 Potassium 4.4 Chloride 102 Carbon Dioxide 24.0 Anion Gap 10 BUN 16 Creatinine 1.10 Estim Creat Clear Calc 75.58 Est GFR (MDRD) Af Amer 88 Est GFR (MDRD) Non-Af 73 BUN/Creatinine Ratio 14.5 Glucose 113 H Calcium 8.9 Ethyl Alcohol 04/03/20 04/03/20 17:05 17:35 WBC RBC Hgb Hct MCV MCH MCHC RDW Std Deviation RDW Coeff of Jose Cruz Plt Count MPV Immature Gran % (Auto) Neut % (Auto) Lymph % (Auto) [place] % (Auto) Eos % (Auto) Baso % (Auto) Absolute Neuts (auto) Absolute Lymphs (auto) Nucleated RBC % PT 14.2 INR 1.2 APTT 29.1 Sodium Potassium Chloride Carbon Dioxide Anion Gap BUN Creatinine Estim Creat Clear Calc Est GFR (MDRD) Af Amer Est GFR (MDRD) Non-Af BUN/Creatinine Ratio Glucose Calcium Ethyl Alcohol 298.0 - Medical Decision Making Patient intoxicated with an alcohol at almost 300, which certainly explains his mental status. With observation in the emergency department for 3 and half hours, his mental status improved, he was back to baseline as per sister who arrived in the ER, and he was not as hard of hearing. He was acting much more appropriate at discharge. His test show no abnormality except for a nasal bone fracture. He did not have continuously active bleeding, he was able to breathe okay, I cleared his cervical spine clinically after radiography returned negative, he was able to move his head around without any neurologic symptoms or disabilities. We repaired his mucosal laceration, I do not think you will need antibiotics for this it was fairly superficial, he was advised to do salt water rinses twice daily, and we discussed reasons to follow-up with ENT which I discussed with his sober sister. At this time they are both comfortable with discharge home, we cleanse the abrasions on his face and dressed with bacitracin. Procedures - Lacerations lower lip Length: 4 cm Depth: mucosa & SQ Shape: Stellate Prep: - - irrigated Laceration Repair: Lidocaine with epi - 2%, 2cc, Local Number of Sutures/Jeremías: 6 Suture Information: Vicryl, Simple, 5-0 ED Disposition - Plan for ED Patient: Disposition: Home or Assisted Living Diagnosis: Alcohol intoxication, Fall down stairs, Nasal bone fracture, Lip laceration, Facial abrasion Instructions: ED Laceration Mouth, ED Nose Fracture with X-Ray Referrals: Denae Lofton MD [Primary Care Provider] - Christoph Zamora MD [STAFF PHYSICIAN] - (As needed if you are unhappy with cosmetic outcome after nose swelling goes down after 1 week, or you cannot breathe through your nose after the blood and clots are out) Additional Instructions: Ice to nose/face as needed. Do not apply heat. This could make it bleed more.
[2020-04-03 17:15] LABS: Absolute Lymphocyte Count 2.85 X10^3/uL (0.83-4.51); Absolute Neutrophil Count 3.5 X10^3/uL (2.0-7.7); Basophil# 0.04 X10^3/uL; Basophil% 0.5 % (0-1); Eosinophil# 0.24 X10^3/uL; Eosinophils% 3.2 % (0-5); Hematocrit 44.9 % (40-54); Hemoglobin 15.1 g/dL (13.0-16.5); Lymphocyte # 2.85 X10^3/ul (4.0); Lymphocyte % 37.7 % (19-41); Mean Corp Hgb Conc 33.6 g/dL (32-36); Mean Corpuscular Hgb 30.9 pg (27.0-32.0); Mean Platelet Vol. 9.2 fl (6.2-12.0); Monocyte# 0.93 X10^3/uL; Monocyte% 12.3 % (0-10); NRBC Flagged by Analyzer 0 % (0-5); Neutrophil # 3.49 X10^3/uL (2.7-7.7); Neutrophil % 46.2 % (47-70); Platelet Count 229 K/mm3 (150-450); RBC Distribution Width CV 12.9 % (11.6-14.6); RBC Distribution Width SD 43.3 fl (35.1-43.9); Red Blood Count 4.88 M/mm3 (4.6-6.2); White Blood Count 7.6 K/mm3 (4.4-11.0)
[2020-04-03 17:24] LABS: Anion Gap 10 (5-15); BUN 16 mg/dL (7-18); BUN/Creat Ratio 14.5 RATIO (10-20); Calcium,Total 8.9 mg/dL (8.5-10.1); Chloride 102 mmol/L (98-107); EST Glomerular Filtration Rate 73 mL/min (>60); Est Glom Filt Rate - Afr Amer 88 mL/min (>60); Estimated Creatinine Clearance 75.58 ml/min; Glucose 113 mg/dL (74-106); Potassium 4.4 mmol/L (3.5-5.1); Sodium Level 136 mmol/L (136-145)
--- NOTE | 2020-04-03 17:25 | RAD_ITS ---
STUDY: X-RAY CHEST REASON FOR EXAM: Male, 59 years old. fell down 15 stairs, facial trauma, denies loc. hx of blood clots in lung and leg TECHNIQUE: AP COMPARISON: 10/19/2019 FINDINGS: EKG leads project over the chest. The lungs are clear and expanded. There is no demonstrated pleural abnormality. Normal size heart. Normal mediastinum and anselmo. Normal visualized pulmonary arteries. Normal visualized aortic arch and descending thoracic aorta. There is a dextroscoliosis of the thoracic spine. Normal visualized ribs, clavicles, and shoulders. There is no demonstrated abnormality of the visualized soft tissue structures of the upper abdomen. RAD/Chest 1 View (Portable) IMPRESSION: Nonacute portable x-ray examination of the chest. Electronically Signed: Shaw Campbell MD (Brooks) at 18:04 EST , Service support ,
--- NOTE | 2020-04-03 17:25 | RAD_ITS ---
STUDY: X-RAY - PELVIS REASON FOR EXAM: Male, 59 years old. fell down 15 stairs, facial trauma, denies loc. hx of blood clots in lung and leg TECHNIQUE: One view of the pelvis was obtained. COMPARISON: None. FINDINGS: There is a non-specific bowel gas pattern. Normal visualized soft tissue structures. There are atherosclerotic vascular calcifications. Normal bilateral iliac wings, sacroiliac joints and visualized sacrum. Normal visualized bilateral superior and inferior pubic rami. Normal pubic symphysis. Normal ischial tuberosities. Normal visualized right femoral head. There is osteoarthritic spur formation of the right acetabular rim. There is mild articular joint space narrowing of the right hip. Normal visualized left femoral head. There is osteoarthritic spur formation of the left acetabular rim. There is mild articular joint space narrowing of the left hip. RAD/Pelvis 1 or 2 Views IMPRESSION: Mild degenerative changes. No demonstrated fracture. Electronically Signed: Shaw Campbell MD (Brooks) at 18:01 EST , Service support ,
[2020-04-03] MEDS: Diphth,Pertuss(Acell),Tet Vac 0.5 ML Vial IM (17:40)
--- NOTE | 2020-04-03 17:51 | ED.RN ---
PT ADAMANTLY REFUSES TO GIVE URINE SAMPLE, AWARE.
[2020-04-03 18:01] VITALS: BP 157/94; PULSE 97; RESP 18; O2SAT 97
[2020-04-03 18:06] LABS: International Normalized Ratio 1.2; Partial Thromboplast Time 29.1 Seconds (24.1-36.2); Prothrombin Time (Protime)PT. 14.2 SECONDS (11.7-14.9)
--- NOTE | 2020-04-03 20:40 | RAD_ITS ---
STUDY: X-RAY - RIGHT HAND REASON FOR EXAM: Male, 59 years old. PAIN, DEFORMITY AND LROM S/P FALL TECHNIQUE: 3 view(s) of the hand. 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 Degenerative arthrosis of the distal radioulnar joint. Sclerosis and partial collapse of the lunate. Normal carpal articulations There is degenerative arthrosis of the carpometacarpal (CMC) articulation of the thumb. Normal second through fifth carpometacarpal joints. Normal metacarpi. There is degenerative arthrosis of the metacarpophalangeal (MCP) joints. There is degenerative arthrosis of the interphalangeal joint of the thumb with articular joint space narrowing. Avulsion injury at the base of the proximal phalanx of the thumb. Mild narrowing of the second through the fifth metacarpal phalangeal joints. Mild generalized narrowing of the interphalangeal joints. Normal phalanges of the second through fifth fingers. The soft tissue structures are unremarkable. RAD/Hand Min 3 Views IMPRESSION: Probable acute fracture of the base of the proximal phalanx of the. 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 Sclerosis and partial collapse of the lunate. Advanced degenerative arthrosis of the first carpometacarpal joint. Mild degenerative narrowing of the metacarpophalangeal and interphalangeal joints. Electronically Signed: Shanti Rocha MD at 21:01 EST , Service support ,
[2020-04-03 22:00] VITALS: RESP 16
--- NOTE | 2020-04-03 22:15 | DCINST.ED_ITS ---
ED Disposition - Plan for ED Patient: Disposition: Home or Assisted Living Diagnosis: Alcohol intoxication, Fall down stairs, Nasal bone fracture, Lip laceration, Facial abrasion, Closed fracture of proximal phalanx of right thumb, Cutaneous abscess of back [any part, except buttock] Instructions: ED Nose Fracture with X-Ray, ED Laceration Mouth Prescriptions: Smz/Tmp Ds [Bactrim Ds] 1 tab PO BID #20 tab Transmission Status: Received by [id number] Referrals: Christoph Zamora MD [STAFF PHYSICIAN] - (As needed if you are unhappy with cosmetic outcome after nose swelling goes down after 1 week, or you cannot breathe through your nose after the blood and clots are out) Denae Lofton MD [Primary Care Provider] - Hanna Thompson MD [STAFF PHYSICIAN] - 3-5 Days if not improving (for back sore) Jurgen Velez MD [STAFF PHYSICIAN] - 1 Week (for thumb) Additional Instructions: Ice to nose/face as needed. Do not apply heat. This could make it bleed more.
[2020-04-03] MEDS: Smz/Tmp Ds Tablet 1 TABLET PO (22:49)
[2020-04-03] MEDS: Acetaminophen 500 MG Tablet 1000 MG PO (22:49)
== END 2020-04-03 22:00 | disposition home or self-care (01) ==
PROVIDERS: Emergency Provider Emergency Medicine; PCP Internal Medicine
DX: S02.2XXA Fracture of nasal bones, initial encounter for closed fracture (principal); S01.511A Laceration without foreign body of lip, initial encounter; S20.221A Contusion of right back wall of thorax, initial encounter; S80.812A Abrasion, left lower leg, initial encounter; F10.129 Alcohol abuse with intoxication, unspecified; Y90.8 Blood alcohol level of 240 mg/100 ml or more; W10.9XXA Fall (on) (from) unspecified stairs and steps, initial encounter; Y93.9 Activity, unspecified; Y92.9 Unspecified place or not applicable; Y99.9 Unspecified external cause status; I10 Essential (primary) hypertension; H91.90 Unspecified hearing loss, unspecified ear; Z79.01 Long term (current) use of anticoagulants; Z86.711 Personal history of pulmonary embolism; Z87.891 Personal history of nicotine dependence
CPT/HCPCS: 12013; 70450; 70486; 71045; 72125; 72170; 73130; 80048; 80320; 85025; 85610; 85730; 90715; 96360; 99285; J7030; A4216; G0480

== ENCOUNTER → 2020-07-02 14:44 | Outpatient (CLI) | payer MEDICAID, SELFPAY ==
[2020-06-17 13:08] VITALS: BMI 34.9
--- NOTE | 2020-07-02 14:47 | CT_ITS ---
STUDY: CT ABDOMEN AND PELVIS WITHOUT CONTRAST REASON FOR EXAM: Male, 59 years old. Recurrent left groin pain RADIATION DOSAGE (If Supplied By Facility): CTDIvol = ( 19.44 ) mGy, DLP = ( 917.64 ) mGycm TECHNIQUE: Transaxial images were obtained from the dome of the diaphragm to the symphysis pubis without oral contrast, and without intravenous contrast. Sagittal and coronal images were reconstructed. Individualized dose optimization techniques were used for this CT. COMPARISON: Comparison is made with prior examination dated 10/19/2019. FINDINGS: Mild increased residual linear markings at the right lung base suggestive of scarring. The previously seen infiltrate has cleared. Coronary artery calcification. Normal liver. Normal gallbladder and extrahepatic biliary system. Normal spleen. Normal pancreas. Normal bilateral adrenal glands. Normal right kidney. Normal left kidney. Normal visualized stomach. Normal small intestine. Normal colon. The appendix is visualized and appears normal. There is scattered atherosclerotic calcification of the abdominal aorta, without a demonstrated aneurysm. Normal inferior vena cava. Normal retroperitoneum. The bladder is empty. There is evidence of diffuse bladder wall thickening. There is a small umbilical hernia containing fat. Small bilateral inguinal hernias containing fat slightly more prominent on the left side. There are mild degenerative changes of the visualized lumbar spine. CT/Abdomen/Pel W ORAL Cont Only IMPRESSION: Residual linear densities at the right lung base suggestive of linear scarring. The urinary bladder is not adequately distended with suggestion of bladder wall thickening. Small bilateral inguinal hernias containing fat slightly more prominent on the left side. Electronically Signed: Braxton Puentes MD at 15:17 EST , Service support ,
== END ==
PROVIDERS: PCP Internal Medicine; Referring Provider Internal Medicine; Visit Provider Internal Medicine
DX: R10.32 Left lower quadrant pain (principal)
CPT/HCPCS: 74176

== ENCOUNTER → 2020-07-04 | Outpatient (CLI) | payer MEDICAID, SELFPAY ==
[2020-06-17 13:08] VITALS: BMI 34.9
--- NOTE | 2020-07-04 | CYSPIN_PTH ---
PATIENT: IRIS MUNOZ LOC: [facility] U#:[id number] AGE/SX: 60/M ROOM: RE07/04/[address]: Dr. Denae Lofton MD : 1960 BED: DIS: 07/04/2020 SPEC #: [id number] RECD: 07/04/20 12:33 STATUS: MADELEINE SIDDIQI #: [id number] JONN: 07/04/20 00:[address]: Denae Lofton DEPT: CYTOLOGY RECD BY: Home [facility] Tissues: Urine Procedures: Pap Stain (control) Special Stain Group II Cytospin Fluid HEADER OPERATION: Not noted PRE-OP DIAGNOSIS: TISSUE SUBMITTED: Urine for cytology DIAGNOSIS CYTOLOGY Urine for cytology (cytospin): Negative for malignant cells. See comment. DONNA:rozina 07/07/2020 COMMENT Clinical correlation and appropriate follow up are necessary. The specimen predominantly consists of squamous epithelial cells. CYTOLOGY STUDY Slides are reviewed. CYTOLOGY GROSS Received is 60 ml of yellow cloudy fluid labeled with the patient's name and and designated per the requisition as urine. Submitted for cytology preparation. / rozina 07/04/2020 TC:5 CPT: 03222
[2020-07-04 11:34] LABS: Bacteria 0 SEEN /hpf (None Seen); Cytology, Body Fluid / CSF SEE PATHOLOGY REPORT; Mucous, Urine 0 SEEN /hpf (<or=2+); Red Blood Cells-Urine 0 SEEN /hpf (0-5); Squamous Epithelial Cells - UA 0 SEEN /hpf (0-5); White Blood Cells 0 SEEN /hpf (0-5)
[2020-07-04 12:05] LABS: Color, Urine Yellow (Yellow); Glucose, Dipstick Normal (Normal); Ketone-Dipstick Negative (Negative); Leukocyte Esterase-Dipstick Negative /ul (Negative); Nitrite-Dipstick Negative (Negative); Occult Blood-Urine Negative /ul (Negative); Protein-Dipstick Negative (Negative); Specific Gravity, Urine 1.015 (1.002-1.030); Urine Bilirubin Dipstick Negative (Negative); Urine Clarity Clear (Clear); Urine Urobilinogen Normal (Normal); Urine pH 6.5 (5.0 - 8.0)
== END | disposition home or self-care (01) ==
LOC: LABSPEC 11:32
PROVIDERS: PCP Internal Medicine; Referring Provider Internal Medicine; Visit Provider Internal Medicine
DX: N32.89 Other specified disorders of bladder (principal)
CPT/HCPCS: 81001; 88108; 88313

== ENCOUNTER → 2022-06-07 | Outpatient (CLI) | payer MEDICAID, SELFPAY ==
[2022-06-07 10:32] LABS: Absolute Neutrophil Count 3.6 X10^3/uL (2.0-7.7); Basophil# 0.04 X10^3/uL; Basophil% 0.7 % (0-1); Eosinophil# 0.12 X10^3/uL; Hematocrit 45.7 % (40-54); Lymphocyte % 26.4 % (19-41); Mean Corp Hgb Conc 32.8 g/dL (32-36); Mean Corpuscular Hgb 30.6 pg (27.0-32.0); Mean Corpuscular Volume 93.3 fL (80-94); Mean Platelet Vol. 9.2 fl (6.2-12.0); Monocyte# 0.65 X10^3/uL; Monocyte% 10.7 % (0-10); NRBC Flagged by Analyzer 0 % (0-5); Neutrophil # 3.62 X10^3/uL (2.7-7.7); Neutrophil % 59.9 % (47-70); Platelet Count 189 K/mm3 (150-450); RBC Distribution Width CV 13.2 % (11.6-14.6); RBC Distribution Width SD 44.8 fl (35.1-43.9); White Blood Count 6.1 K/mm3 (4.4-11.0)
[2022-06-07 11:04] LABS: BNP,B-Type NATRIURETIC PEPTIDE 40.9 pg/mL (0-100)
[2022-06-07 11:06] LABS: Vitamin D,25 Hydroxy 15.8 ng/mL
[2022-06-07 11:15] LABS: AST(SGOT) 18 U/L (15-37); Alanine Aminotransfer ALT/SGPT 19 U/L (16-61); Albumin, Serum 3.8 g/dL (3.2-5.0); Alkaline Phosphatase 77 U/L (45-117); Anion Gap 8 (5-15); BUN 13 mg/dL (7-18); BUN/Creat Ratio 12.6 RATIO (10-20); Calcium,Total 9.2 mg/dL (8.5-10.1); Chloride 102 mmol/L (98-107); Cholesterol 197 mg/dL (200); Creatinine, Serum 1.03 mg/dL (0.70-1.30); EST Glomerular Filtration Rate 78 mL/min (>60); Est Glom Filt Rate - Afr Amer 94 mL/min (>60); Free T3 2.8 pg/mL (2.18-3.98); Globulin 3.9 g/dL (2.2-4.2); Glucose 104 mg/dL (74-106); High Density Lipoprotein 60 mg/dL; PSA,Total- Diagnostic 1.63 ng/mL (0.0-4.0); Potassium 4.1 mmol/L (3.5-5.1); Protein, Total 7.7 g/dL (6.4-8.2); Sodium Level 137 mmol/L (136-145); T4 Free Direct 0.93 ng/dL (0.76-1.46); Thyroid Stim Hormone (TSH) 3.74 uIU/mL (0.358-3.74); Triglycerides 130 mg/dL; Very Low Density Lipoprotein 26 mg/dL (5-40)
[2022-06-07 12:10] LABS: Hemoglobin A1c 5.7 % (3.8-5.6)
== END | disposition home or self-care (01) ==
LOC: LAB 09:53
PROVIDERS: PCP Internal Medicine; Visit Provider Internal Medicine
DX: I26.99 Other pulmonary embolism without acute cor pulmonale (principal); R60.9 Edema, unspecified; I10 Essential (primary) hypertension; E66.9 Obesity, unspecified; Z86.718 Personal history of other venous thrombosis and embolism; R73.9 Hyperglycemia, unspecified; Z13.220 Encounter for screening for lipoid disorders; N40.0 Benign prostatic hyperplasia without lower urinary tract symptoms; E55.9 Vitamin D deficiency, unspecified
CPT/HCPCS: 36415; 80053; 80061; 82306; 83036; 83735; 83880; 84153; 84439; 84443; 84481; 85025

== ENCOUNTER 2022-10-13 10:00 | Outpatient (RCR) | payer MEDICAID, SELFPAY ==
--- NOTE | 2022-08-13 11:28 | HP.PTEVAL_ITS ---
Patient's Visit Information IRIS MUNOZ is a 62 year old M referred to Physical Therapy by Dr. Denae Lofton MD with a diagnosis of OSTEOARTHRITIS ,EDEMA ,PE. Date of Evaluation: 08/13/22 Physical Therapist: Jorgito Walker, PT, Cert MDT, OCS - Visit Plan Frequency: 2x /Week Duration: 4 Weeks Plan: PT INTERVETIONS WITH ENDURANCE PROGRAM ,BLE STRENGTHENING ,BALANCE PROGARM AND FLEXABLITY - Subjective This 62 y/o male presents to physical therapy with leg pain and weakness. Patient has developed weakness ~ 2 years ,which patient developed DVT's and has chronic edema and uses compression sleeves in legs. Patient had episode off being hospitalized due to PE 2019. In the mean time progressively weakness . Aggravating factors walking and standing < 15 mins . Patient has difficulty and kneeling . Patient denies paresthesia/tingling. Patient is able to sleep well at night. Symptoms worse in morning to get up. Patient did fall OOB yesterday. No recent falls when walking but uses cane. No recent diagnostics. Patient goals to get stronger and improve walking. SOCAIL: SINGLE. VOCATION: - Pain Bilateral Lower Extremity Pain Intensity (Out of 10): 5 Pain Intensity Range: 10 - Objective POSTURE: mild posture knee's/hips flexed. GAIT: mild forward posture slow rose hips/knees flexed. NEURO: denies paresthesia/tingling ,reflexes intact. PALAPTION: tender knees, patient has distended abnormal from hernia. EDEMA: 1+ edema bilateral legs. FLEXABLITY: hamstrings mod tight ,piriformis mod tight. AROM: knee flexion 5 -120 degrees knee flexion ,hip flexion 95 degrees. MMT:( peak force) quads 23.8 ,hamstrings 22.9 ,hip flexion 14.2,hip abduction 10.3 - Balance/Special Test Scores Functional Gait Assessment Score: 18 % Disability: 40.0000 CATSIB Score (Max score 120 seconds): 45 Lower Extremity Functional Score: 34 30 Second Chair Rise Test Seconds: 12 - Goals Goal 1:: Patient to be I with HEP for conditioning. Goal Time Frame: 4-6 Weeks Goal 2:: Patient to demonstrate 50% improvement with improved function with less pain. Goal Time Frame: 4-6 Weeks Goal 3:: Patient improve peak force of LE by 5-10 to improve gait and function. Goal Time Frame: 4-6 Weeks Goal 4:: Patient to improve CATSIB by 5-10 points to improve balance Goal Time Frame: 4-6 Weeks Goal 5:: Patient to improve LFES score by 5-10 points to improve gait and function. Goal Time Frame: 4-6 Weeks Goal 6:: Patient to improve 30sec sit-stand by 5 to improve functional strength Goal Time Frame: 4-6 Weeks - Rehabilitation Potential Physical Therapy Diagnosis: Patient has generalized weakness in legs ,chronic edema ,decrease endurance for function unsteady gait thus benefit from skilled PT Rehabilitation Potential: Good - Anticipated Interventions Patient/Client Instruction: Educate patient on: Condition, Plan of Care For the Purpose of:: To decrease pain, To improve muscle performance and motor function, To improve ability to perform ADL's, To increase tolerance to activity/condition/position, To improve ability of physical actions for home/community/work/leisure, To improve gait and locomotor functions, To improve health of tissue, To decrease soft tissue restriction, To increase flexibility/ROM, To improve endurance, To improve balance Therapeutic Exercise to Include: Strength training, Power training, Endurance training, Balance training, Postural training, Flexibilty training Comment: BLE For the Purpose of:: To decrease pain, To improve muscle performance and motor function, To improve ability to perform ADL's, To increase tolerance to activity/condition/position, To improve ability of physical actions for home/community/work/leisure, To improve health of tissue, To decrease soft tissue restriction, To increase flexibility/ROM, To improve endurance, To improve balance Thank you for the opportunity to evaluate your patient. For Medicare and Medicare HMO plans, please review the plan of care and approve it. It will need to be FAXED BACK to us at [phone] for Medicare purposes. For Medicare only, by signing this I certify the plan of care. Please let me know if there are questions or concerns regarding this plan of care. Physician Signature: Date:
--- NOTE | 2022-10-13 10:33 | HP.PTDCSUM_ITS ---
It has been my pleasure to treat IRIS MUNOZ referred by Dr. Denae Lofton MD, with the diagnosis of OSTEOARTHRITIS ,EDEMA ,PE for a total of 17 visit(s). Discharge Date: 10/13/22 Please see the following information for a summary of their discharge status. Subjective: Doing good no new problems Bilateral Lower Extremity Pain Intensity (Out of 10): 0 % Improvement: 60 Objective/Function: POSTURE: mild posture knee's/hips flexed. GAIT: reciprocal pattern. NEURO: denies paresthesia/tingling ,reflexes intact. PALAPTION: tender knees, patient has distended abnormal from hernia. EDEMA: absent. FLEXABLITY: hamstrings mod tight ,piriformis mod tight. AROM: knee flexion 5 - 120 degrees knee flexion ,hip flexion 95 degrees. MMT:( peak force) quads 43.8 ,hamstrings 38.9 ,hip flexion 32.2,hip abduction 10.3 Goal 1:: Patient to be I with HEP for conditioning. Goal Progress: Goal Met Goal 2:: Patient to demonstrate 70% improvement with improved function with less pain.( new goal) Goal Progress: Goal Met Goal 3:: Patient improve peak force of LE by 5-10 to improve gait and function.( new goal) Goal Progress: Goal Met Goal 4:: Patient to improve CATSIB by 5-10 points to improve balance Goal Progress: Goal Met Goal 5:: Patient to improve LFES score by 5-10 points to improve gait and function. Goal Progress: Goal Met Goal 6:: Patient to improve 30sec sit-stand by 5 to improve functional strength( new goal) Goal Progress: Goal Met Plan: D/C Discharge Comments: HEP If there are questions or concerns regarding this patient's physical therapy, please feel free to call me at [phone]. Thank you for the referral of this patient. Sincerely, Jorgito Walker, PT, Cert MDT, OCS Balance/Gait/Functional tests - Balance/Special Test Scores Functional Gait Assessment Score: 25 % Disability: 16.6700 CATSIB Score (Max score 120 seconds): 100 Lower Extremity Functional Score: 60 30 Second Chair Rise Test Seconds: 15
== END 2022-10-13 19:00 | disposition home or self-care (01) ==
LOC: PT 10:00
PROVIDERS: PCP Internal Medicine; Referring Provider Internal Medicine; Visit Provider Internal Medicine
DX: E66.9 Obesity, unspecified (principal); M19.90 Unspecified osteoarthritis, unspecified site; R60.9 Edema, unspecified; Z86.711 Personal history of pulmonary embolism
CPT/HCPCS: 97110; 97162; 97530

== ENCOUNTER → 2022-11-29 | Outpatient (CLI) | payer MEDICAID, SELFPAY ==
[2022-11-29 11:21] LABS: Absolute Lymphocyte Count 1.01 X10^3/uL (0.83-4.51); Absolute Neutrophil Count 3.3 X10^3/uL (2.0-7.7); Basophil# 0.03 X10^3/uL; Basophil% 0.6 % (0-1); Eosinophil# 0.09 X10^3/uL; Eosinophils% 1.7 % (0-5); Hematocrit 44.9 % (40-54); Lymphocyte # 1.01 X10^3/ul (0.83-4.51); Lymphocyte % 19.5 % (19-41); Mean Corp Hgb Conc 33.4 g/dL (32-36); Mean Corpuscular Hgb 31.3 pg (27.0-32.0); Mean Corpuscular Volume 93.5 fL (80-94); Mean Platelet Vol. 9.4 fl (6.2-12.0); Monocyte# 0.71 X10^3/uL; Monocyte% 13.7 % (0-10); NRBC Flagged by Analyzer 0 % (0-5); Neutrophil # 3.32 X10^3/uL (2.7-7.7); Neutrophil % 64.1 % (47-70); Platelet Count 178 K/mm3 (150-450); RBC Distribution Width CV 12.8 % (11.6-14.6); RBC Distribution Width SD 44.6 fl (35.1-43.9); White Blood Count 5.2 K/mm3 (4.4-11.0)
[2022-11-29 11:52] LABS: Vitamin D,25 Hydroxy 14.1 ng/mL
[2022-11-29 11:57] LABS: ALB/GLOB Ratio 0.9 RATIO (0.9-2.4); AST(SGOT) 21 U/L (15-37); Alanine Aminotransfer ALT/SGPT 23 U/L (16-61); Albumin, Serum 3.6 g/dL (3.2-5.0); Alkaline Phosphatase 83 U/L (45-117); Anion Gap 4 (5-15); BUN 13 mg/dL (7-18); BUN/Creat Ratio 12.3 RATIO (10-20); Chloride 101 mmol/L (98-107); Cholesterol 228 mg/dL (200); Creatinine, Serum 1.06 mg/dL (0.70-1.30); EST Glomerular Filtration Rate 75 mL/min (>60); Est Glom Filt Rate - Afr Amer 91 mL/min (>60); Globulin 4.2 g/dL (2.2-4.2); Glucose 116 mg/dL (74-106); High Density Lipoprotein 62 mg/dL; Potassium 4.6 mmol/L (3.5-5.1); Protein, Total 7.8 g/dL (6.4-8.2); Sodium Level 133 mmol/L (136-145); Thyroid Stim Hormone (TSH) 2.39 uIU/mL (0.358-3.74); Triglycerides 115 mg/dL; Very Low Density Lipoprotein 23 mg/dL (5-40)
== END | disposition home or self-care (01) ==
PROVIDERS: PCP Internal Medicine; Referring Provider Internal Medicine; Visit Provider Internal Medicine
DX: I10 Essential (primary) hypertension (principal); E78.5 Hyperlipidemia, unspecified; E66.9 Obesity, unspecified; E55.9 Vitamin D deficiency, unspecified; Z13.220 Encounter for screening for lipoid disorders
CPT/HCPCS: 36415; 80053; 80061; 82306; 84443; 85025

== ENCOUNTER 2023-01-31 13:44 | Observation (INO) | payer MEDICAID, SELFPAY ==
[2023-01-31 13:45] VITALS: BP 118/95; PULSE 91; RESP 16; TEMP 36.4; O2SAT 96
--- NOTE | 2023-01-31 14:30 | EX.ED.DYSGE1 ---
HPI History of Present Illness Chief Complaint: Weakness Informant: patient Onset/Context/Timing Onset: Days (3) Context: Gradual Onset Timing: Continuous Quality: Sharp Location: Left arm and left leg Worsened by: Nothing Relieved by: Tylenol Narrative Narrative: Patient presents with left-sided pain and weakness that began 3 days ago. Patient states the pain improved with Tylenol. Patient describes his pain as sharp. Patient states it was over his left arm and leg. Patient states he was dragging my leg around 2 days ago. Patient saw his primary care physician today who referred him to the emergency department for stroke evaluation. Patient admits to a mild headache. Patient also admits to pain in his neck. Patient denies any chest pain or shortness of breath. Patient denies any nausea or vomiting. Patient denies any diaphoresis. [facility] Medical History Arthritis Bilateral inguinal hernia Hearing loss History of blood clots History of cellulitis History of pulmonary embolism Hypertension Left inguinal hernia Occasional tremors Umbilical hernia Home Medications handicap placard #1 ea 01/27/22 [Rx Last Taken Unknown] apixaban 5 mg tablet 5 mg PO BID #180 tabs 06/07/22 [Rx Last Taken 01/31/23] propranolol 10 mg tablet 10 mg PO TID PRN hypertension #270 tabs 06/07/22 [Rx Last Taken 01/31/23] amlodipine 5 mg-olmesartan 40 mg tablet (Richie) 1 tab PO DAILY #90 tabs 11/29/22 [Rx Last Taken 01/31/23] cholecalciferol (vitamin D3) 25 mcg (1,000 unit) capsule 25 mcg PO DAILY 11/30/22 [History Last Taken 01/30/23] Allergy/AdvReac Type Severity Reaction Status Date / Time Gadolinium-MRI Contrast Allergy DIZZY Verified 01/31/23 13:45 Medium [CONTRAST] Iodinated Contrast Media Allergy DIZZY Verified 01/31/23 13:45 [CONTRASTS] Family History Other Arthritis Blood clot in vein CVA (cerebral vascular accident) Heart disease Hypertension Left inguinal hernia Myocardial infarction Occasional tremors Osteoporosis Thyroid disorder Surgical History H/O bilateral inguinal hernia repair (~10/11/19) h/o cyst excision history excision ganglion cyst right hand History of left knee surgery History of umbilical hernia repair (~02/16/19) Social History Smoking Status: Former smoker quit date: 05/09/19 alcohol intake: current alcohol intake frequency: a few times a week Alcohol type: beer substance use type: does not use what type of physical activity do you participate in: walking frequency: daily ROS ROS ED Constitutional Constitutional ED: Denies chills or fever(s) Eyes Eyes: Denies blurry vision or change in vision ENT ENT ED: Denies rhinorrhea or sore throat Cardiovascular Cardiovascular: Denies chest pain or palpitations Respiratory/Chest Respiratory/Chest: Denies cough or dyspnea Gastrointestinal Gastrointestinal: Denies nausea or vomiting Genitourinary Genitourinary ED: Denies dysuria or hematuria Musculoskeletal Musculoskeletal: Reports neck pain; Denies back pain Integumentary Denies abscess or rash Neurologic Neurologic: Reports headache(s) and weakness Allergic/Immunologic Allergic/Immunologic ED: Denies mouth swelling or urticaria EXAM Physical Exam Const Vital Signs: 01/31/23 13:45 Temperature 97.6 F L Temperature Source Temporal Pulse Rate 91 Respiratory Rate 16 Blood Pressure 118/95 H Blood Pressure Mean 102 Pulse Ox 96 Oxygen Delivery Method Room Air Positive well nourished and well developed General Appearance ED: well developed and NAD HEENT Reports moist mucous membranes Neck supple and no JVD Resp normal respiratory effort and clear to auscultation bilaterally Cardio regular rate and regular rhythm GI normal to inspection, nondistended, normoactive bowel sounds and non-tender Palpation: soft Extremity normal to inspection Extremity Narrative: There is mild tenderness of the left thigh and left calf. Pedal pulses are equal bilaterally. General Extremety ED: Yes tenderness Neuro oriented x3, CN's II-XII intact bilaterally and no sensory deficits noted Sensorium / Orientation: alert Motor Exam: strength 5/5 throughout Psych mental status grossly normal Skin no rashes or lesions noted MDM MDM MDM Narrative Medical decision making narrative: Differential diagnosis includes TIA, stroke, DVT, neuropathy, radiculopathy, cardiac dysrhythmia, cardiac ischemia, electrolyte abnormality, and anemia. CT scan of the brain will be obtained to assess for stroke and intracranial bleeding. EKG will be obtained to assess for cardiac dysrhythmia and cardiac ischemia. Venous duplex of the left lower extremity will be obtained to assess for DVT. CBC will be obtained to assess for anemia and leukocytosis. Basic metabolic profile will be obtained to assess for electrolyte abnormality and renal function. High-sensitivity troponin will be obtained to assess for cardiac ischemia. PT was INR and PTT will be obtained to assess for coagulopathy. Lab Data Attestation: I reviewed the patient's lab results. Lab results narrative: CBC was reviewed and was within normal limits. Basic metabolic profile was reviewed and was essentially within normal limits. High-sensitivity troponin was reviewed and was normal at 5. PT with INR and PTT were reviewed. Pro time was 15.6 and INR is 1.2. PTT is 32.5. Labs: Laboratory Results - last 24 hr 01/31/23 15:32 WBC 6.6 RBC 4.67 Hgb 14.9 Hct 43.1 MCV 92.3 MCH 31.9 MCHC 34.6 RDW Std Deviation 44.1 H RDW Coeff of Jose Cruz 13.1 Plt Count 215 MPV 9.3 Immature Gran % (Auto) 0.500 Neut % (Auto) 56.8 Lymph % (Auto) 29.7 [place] % (Auto) 9.8 Eos % (Auto) 2.6 Baso % (Auto) 0.6 Absolute Neuts (auto) 3.8 Absolute Lymphs (auto) 1.97 Nucleated RBC % 0 PT 15.6 H INR 1.2 APTT 32.5 Sodium 136 Potassium 4.4 Chloride 102 Carbon Dioxide 28.0 Anion Gap 6 BUN 19 H Creatinine 1.16 Estim Creat Clear Calc 69.05 Est GFR (MDRD) Af Amer 82 Est GFR (MDRD) Non-Af 68 BUN/Creatinine Ratio 16.4 Glucose 94 Calcium 9.0 Troponin I High Sens 5 Radiography Diagnostic Testing: Clinical Impression(s) from Imaging Studies Brain CT 01/31/23 14:37 IMPRESSION: Mild atrophy and periventricular white matter ischemic change. No acute bleed. If concern for acute infarct MRI recommended Electronically Signed: Ruslan Cuellar MD at 16:22 EDT , CT scan of the brain was obtained. There is no acute intracranial abnormality. There are periventricular white matter ischemic changes. This was interpreted by the radiologist and was also independently reviewed by myself. Venous duplex of the left lower extremity was obtained. There is no evidence of DVT. EKG Initial EKG: Attestation: I personally reviewed and interpreted this EKG as follows: Interpretation: Sinus Rhythm (77) and No Acute Injury Pattern Comments: EKG was obtained. On my independent interpretation, it showed a normal sinus rhythm with a rate of 77. OR interval, QRS interval, and QTc intervals were all normal. [place] was normal. There are no acute ST or T wave changes. Prior EKG tracings: available for review Prior: Unchanged (10/20/2019) Management Discussion w/another healthcare provider: Hospitalist Treatment and Re-Evaluation :: Patient was advised of his findings. Patient was advised that this likely was a TIA. Patient was advised of the need for admission and further evaluation. Patient is agreeable with the plan. Case was discussed with the hospitalist. She will admit the patient to PCU for observation. Patient understood and was agreeable with the plan. All questions were answered. Discharge Plan Triage Chief Complaint: Weakness ED Provider: Christoph Mccabe Dx/Rx/DC Orders Clinical Impression: TIA (transient ischemic attack), Left-sided weakness Prescriptions: No Action apixaban 5 mg tablet 5 mg PO BID Qty: 180 3RF propranolol 10 mg tablet 10 mg PO TID PRN (Reason: hypertension) Qty: 270 3RF amlodipine-olmesartan [Richie] 5-40 mg tablet 1 tab PO DAILY Qty: 90 1RF (DME) handicap placard See Rx Instructions .Route .MEDSUPPLY Qty: 1 0RF Rx Instructions: 5 year RX 01/27/22 - 01/28/27 cholecalciferol (vitamin D3) 25 mcg (1,000 unit) capsule 25 mcg PO DAILY Primary Care Provider: Denae Lofton Referrals: Denae Lofton MD [Primary Care Provider] - Disposition Disposition: Acute Care Hospital [facility]
--- NOTE | 2023-01-31 14:37 | CT_ITS ---
STUDY: CT BRAIN WITHOUT CONTRAST REASON FOR EXAM: Male, 62 years old. Weakness RADIATION DOSAGE (If Supplied By Facility): CTDIvol = ( 44.99 ) mGy, DLP = ( 812.98 ) mGycm TECHNIQUE: Transaxial CT imaging of the brain was performed without administration of intravenous contrast material. Individualized dose optimization techniques were used for this CT. COMPARISON: April 03, 2020 FINDINGS: Normal soft tissue structures. Normal calvarium. Mild cortical atrophy and periventricular white matter ischemic changes.. Normal basal ganglia and thalami. Normal brainstem. Normal cerebellum. There is no intracranial hemorrhage. There are no findings of an acute ischemic infarction. Normal visualized paranasal sinuses. CT/Brain/Head without Contrast IMPRESSION: Mild atrophy and periventricular white matter ischemic change. No acute bleed. If concern for acute infarct MRI recommended Electronically Signed: Ruslan Cuellar MD at 16:22 EDT ,
--- NOTE | 2023-01-31 14:37 | VDLE_ITS ---
Reason For Study: Pain LLE RIGHT LEFT CFV is compressible, spontaneous, phasic, GSV is normal. competent and demonstrates normal CFV is compressible, spontaneous, phasic, augmentation. competent, and demonstrates normal Procedure augmentation. This is a venous duplex using B-mode, color FV is compressible, spontaneous, phasic, flow and spectral Doppler. competent and demonstrates normal Exam performed portable in ED. augmentation. A preliminary report was called and/or faxed Lt PopV and Lt T/P Trunk are partially to Dr. Mccabe. compressible with bright intraluminal echoes consistent with Chronic DVT. PTV is compressible. LT PerV is compressible. VL/Venous Duplex US, Unilateral Interpretation Summary Chronic deep vein thrombosis is noted in the left popliteal vein, tibioperoneal trunk vein. Ordering Physician: Christoph Mccabe Referring Physician: Denae Lofton Performed By: Gisela Latif, LILLY, RVT
[2023-01-31 15:34] VITALS: BMI 33.8
[2023-01-31 15:46] LABS: Absolute Lymphocyte Count 1.97 X10^3/uL (0.83-4.51); Absolute Neutrophil Count 3.8 X10^3/uL (2.0-7.7); Basophil# 0.04 X10^3/uL; Basophil% 0.6 % (0-1); Eosinophil# 0.17 X10^3/uL; Eosinophils% 2.6 % (0-5); Hematocrit 43.1 % (40-54); Hemoglobin 14.9 g/dL (13.0-16.5); Lymphocyte # 1.97 X10^3/ul (0.83-4.51); Lymphocyte % 29.7 % (19-41); Mean Corp Hgb Conc 34.6 g/dL (32-36); Mean Corpuscular Hgb 31.9 pg (27.0-32.0); Mean Corpuscular Volume 92.3 fL (80-94); Mean Platelet Vol. 9.3 fl (6.2-12.0); Monocyte# 0.65 X10^3/uL; Monocyte% 9.8 % (0-10); NRBC Flagged by Analyzer 0 % (0-5); Neutrophil # 3.78 X10^3/uL (2.7-7.7); Neutrophil % 56.8 % (47-70); Platelet Count 215 K/mm3 (150-450); RBC Distribution Width CV 13.1 % (11.6-14.6); RBC Distribution Width SD 44.1 fl (35.1-43.9); Red Blood Count 4.67 M/mm3 (4.6-6.2); White Blood Count 6.6 K/mm3 (4.4-11.0)
[2023-01-31 16:05] LABS: Anion Gap 6 (5-15); BUN 19 mg/dL (7-18); BUN/Creat Ratio 16.4 RATIO (10-20); Chloride 102 mmol/L (98-107); Creatinine, Serum 1.16 mg/dL (0.70-1.30); EST Glomerular Filtration Rate 68 mL/min (>60); Est Glom Filt Rate - Afr Amer 82 mL/min (>60); Estimated Creatinine Clearance 69.05 ml/min; Glucose 94 mg/dL (74-106); Potassium 4.4 mmol/L (3.5-5.1); Sodium Level 136 mmol/L (136-145); Troponin-I HS 5 pg/mL (3.0-78.0)
[2023-01-31 16:29] LABS: International Normalized Ratio 1.2; Prothrombin Time (Protime)PT. 15.6 SECONDS (11.7-14.9)
[2023-01-31 16:30] LABS: Partial Thromboplast Time 32.5 Seconds (24.1-36.2)
--- NOTE | 2023-01-31 17:39 | HP.PCM.HOS_ITS ---
HPI - General General Date of Admission: 01/31/23 Date of Service: 01/31/23 Chief Complaint: Left-sided weakness HPI Narrative IRIS MUNOZ, is a 62 M who presented to the emergency department at [facility] on 01/31/2023 with left-sided weakness. Patient reports he has a history of left lower extremity weakness and has been going to physical therapy and does home exercises. He states the weakness has been a little bit w orse and it started about 3 days ago. He also is complaining of pain in his left side which sounds to be acute on chronic. He reported that he has been dragging his leg around for about 2 days and he saw his primary care physician who sent him to the emergency department for stroke evaluation. Patient only reports a mild headache otherwise and pain in his neck which is chronic. He denied any chest pain or shortness of breath, he denied any nausea vomiting or urinary changes. He denies any diaphoresis. He does have a history of left lower extremity DVTs and takes. He has a history of hypertension as well and uses smokeless tobacco apparently he has a history of cigarette use but quit. NIH on presentation is 1 for mild left lower extremity leg drift but did not hit the table. Vital signs on presentation demonstrate a temperature of 97.6, heart rate 91, blood pressure is 118/95, respiratory 16 and oxygen saturations are 96% on room air. His CBC is unremarkable. Coags are abnormal with his apixaban use. His chemistry panel is unremarkable. EKG shows normal sinus rhythm with normal intervals and no ST-T wave changes concerning for acute ischemia. CT of the brain shows mild atrophy and periventricular white matter ischemic changes but no bleed. CTA is currently pending. [facility] Medical History Arthritis Bilateral inguinal hernia Hearing loss History of blood clots History of cellulitis History of pulmonary embolism Hypertension Left inguinal hernia Occasional tremors Umbilical hernia Home Medications handicap placard #1 ea 01/27/22 [Rx Last Taken Unknown] apixaban 5 mg tablet 5 mg PO BID #180 tabs 06/07/22 [Rx Last Taken 01/31/23] propranolol 10 mg tablet 10 mg PO TID PRN hypertension #270 tabs 06/07/22 [Rx Last Taken 01/31/23] amlodipine 5 mg-olmesartan 40 mg tablet (Richie) 1 tab PO DAILY #90 tabs 11/29/22 [Rx Last Taken 01/31/23] cholecalciferol (vitamin D3) 25 mcg (1,000 unit) capsule 25 mcg PO DAILY 11/30/22 [History Last Taken 01/30/23] Allergy/AdvReac Type Severity Reaction Status Date / Time Gadolinium-MRI Contrast Allergy DIZZY Verified 01/31/23 18:13 Medium [CONTRAST] Iodinated Contrast Media Allergy DIZZY Verified 01/31/23 18:13 [CONTRASTS] Family History Other Arthritis Blood clot in vein CVA (cerebral vascular accident) Heart disease Hypertension Left inguinal hernia Myocardial infarction Occasional tremors Osteoporosis Thyroid disorder Surgical History H/O bilateral inguinal hernia repair (~02/16/19) h/o cyst excision history excision ganglion cyst right hand History of left knee surgery History of umbilical hernia repair (~02/16/19) Social History (Updated 01/31/23 @ 18:[address] Graciela Mckoy DO) Smoking Status: Former smoker quit date: 05/09/19 Smokeless tobacco user: chewing tobacco alcohol intake: current alcohol intake frequency: a few times a week Alcohol type: beer substance use type: does not use what type of physical activity do you participate in: walking frequency: daily ROS Review of Systems ROS Unobtainable: Denies due to encephalopathy, due to endotracheal tube, due to mental condition, due to mental status or other Constitutional Constitutional: Reports weakness; Denies anorexia, change in weight, chills, fatigue, fever(s), malaise, night sweats or other Eyes Eyes: Denies blurry vision, change in eye color, change in vision, discharge from eye(s), double vision, erythema, eye pain, loss of vision or other ENT HEENT: Denies abnormal hearing, dysphagia, ear pain, epistaxis, headache(s), hearing loss, nasal congestion, nasal discharge, post nasal drip, sinus pressure, sore throat or other Cardiovascular Cardiovascular: Denies chest pain, claudication, dyspnea on exertion, edema, lightheadedness, orthopnea, palpitations, paroxysmal nocturnal dyspnea, rapid heart rate, syncope or other Respiratory/Chest Respiratory/Chest: Denies cough, dyspnea, excessive phlegm production, hemoptysis, productive cough, shortness of breath at rest, shortness of breath with exertion, wheezing or other Gastrointestinal Gastrointestinal: Denies abdominal pain, coffee ground emesis, constipation, diarrhea, dyspepsia, hematemesis, hematochezia, loose stools, melena, nausea, vomiting or other Genitourinary Genitourinary: Denies burning urination, difficulty urinating, dysuria, hematuria, nocturia, urinary frequency, urinary hesitancy, urinary incontinence, urinary urgency or other Musculoskeletal Musculoskeletal: Reports other Details: Left leg pain Neurologic Neurologic: Reports abnormal gait, focal weakness and headache(s); Denies abnormal speech, confusion, disequilibrium, dizziness, numbness, paresthesias, seizure-like activity, seizures, syncope, tingling, tremor(s) or other Psychiatric Psychiatric: Denies anxiety, depression, homicidal ideation, suicidal ideation or other Endocrine Endocrinology: Denies change in body appearance, cold intolerance, excessive sweating, heat intolerance, polydipsia, polyuria or other Hematologic/Lymphatic Hematologic/Lymphatic: Denies anemia, easy bleeding, easy bruising, lymphadenopathy or other Allergic/Immunologic Allergic/Immunologic: Denies rhinitis, hives, eczemia, asthma or other Vital Signs Vital Signs Vital Signs: 01/31/23 13:45 Temperature 97.6 F L Temperature Source Temporal Pulse Rate 91 Respiratory Rate 16 Blood Pressure 118/95 H Blood Pressure Mean 102 Pulse Ox 96 Oxygen Delivery Method Room Air Weight Weight: 107.048 kg Body Mass Index (BMI) 33.8 Physical Exam Const alert, oriented x3, no apparent distress, healthy appearing and well nourished Constitutional Narrative: Obese, upper middle-aged, white male, sitting up in bed, appears comfortable and nontoxic General Appearance: cooperative HEENT normocephalic, head/scalp atraumatic, hearing grossly normal bilaterally and moist oral mucous membranes HEENT Narrative: Dentition is good for age, Mallampati 3, no thrush Neck no lymphadenopathy, supple, no JVD and no carotid bruits Neck Narrative: Trachea midline, no thyroid enlargement Resp normal respiratory effort, no retractions, no use of accessory muscles and clear to auscultation bilaterally Auscultation: Negative for rales, rhonchi or wheezes Cardio regular rate, regular rhythm, S1 normal heart sound, S2 normal heart sound, no murmurs, no rub, no gallops and no clicks GI normal to inspection, nondistended, normoactive bowel sounds, soft to palpation and non-tender Extremity no clubbing, cyanosis or edema Extremity Narrative: Trace bilateral lower extremity edema however compression devices are in place, pedal pulses are 2+ Neuro oriented x3, CN's II-XII intact bilaterally and moves all extremities Neuro Narrative: Mild drift of left lower extremity to bed without touching Coordination / Balance: [id number] test normal and fvrp-[id number] test normal Speech: speech normal Motor Exam: Negative for strength 5/5 throughout Psych affect normal Psych Narrative: Eye contact is good and pt is pleasant and appropriate Results Lab / Micro Data Attestation: I reviewed the patient's lab results. 01/31/23 15:32 01/31/23 15:32 Labs: Laboratory Results - last 24 hr 01/31/23 15:32: WBC 6.6, RBC 4.67, Hgb 14.9, Hct 43.1, MCV 92.3, MCH 31.9, MCHC 34.6, RDW Std Deviation 44.1 H, RDW Coeff of Jose Cruz 13.1, Plt Count 215, MPV 9.3, Immature Gran % (Auto) 0.500, Neut % (Auto) 56.8, Lymph % (Auto) 29.7, [place] % (Auto) 9.8, Eos % (Auto) 2.6, Baso % (Auto) 0.6, Absolute Neuts (auto) 3.8, Absolute Lymphs (auto) 1.97, Nucleated RBC % 0, PT 15.6 H, INR 1.2, APTT 32.5, Sodium 136, Potassium 4.4, Chloride 102, Carbon Dioxide 28.0, Anion Gap 6, BUN 19 H, Creatinine 1.16, Estim Creat Clear Calc 69.05, Est GFR (MDRD) Af Amer 82, Est GFR (MDRD) Non-Af 68, BUN/Creatinine Ratio 16.4, Glucose 94, Calcium 9.0, Troponin I High Sens [address] 01/31/23 14:37 IMPRESSION: Mild atrophy and periventricular white matter ischemic change. No acute bleed. If concern for acute infarct MRI recommended Electronically Signed: Ruslan Cuellar MD at 16:22 EDT Reading Location ID and State: [facility] / [place] Tel , Service support , Assessment & Plan Assessment/Plan (1) Left-sided weakness: PLAN: Plan L-Sided Weakness -Will check hemoglobin A1c and lipid panel -Start aspirin -Start statin -MRI brain -Premedication ordered with history of gadolinium allergy -Check CTA head and neck -PT/OT consultation -Check echocardiogram -May need neurology input depending on findings next-we will hold antihypertensives to allow for some permissive hypertension -As needed antihypertensives available for systolic pressures per protocol -NIH 1 for left lower extremity History of DVT/PE -Continue home apixaban Hyperlipidemia -Patient did have labs few months ago and his LDL was elevated -Currently not on any medication -Repeat lab -We will start high intensity dose statin given above findings Hypertension -Hold home medication and allow for permissive hypertension with above left- sided weakness and stroke work-up -As needed available per stroke protocol Tobacco abuse -Previous smoker however is quit -Currently uses smokeless tobacco -Recommend cessation -Patient denies need for nicotine replacement therapy at this time DVT prophylaxis -Continue home apixaban CODE STATUS -Full code Charges/Coding Visit Charges Inpatient E&M: 97094 Init Hosp L2
--- NOTE | 2023-01-31 17:47 | MRI_ITS ---
STUDY: MRI BRAIN WITHOUT CONTRAST REASON FOR EXAM: Male, 62 years old. Stroke, left sided weakness, left leg pain TECHNIQUE: Standardized multiplanar fat and water weighted pulse sequences were obtained. COMPARISON: CT of the brain January 31, 2023 FINDINGS: Normal size of the ventricles and extra-axial spaces for the patient''s age. Minor periventricular white matter ischemic change without mass effect or restricted diffusion. Normal bilateral basal ganglia. Normal thalami. There is no extra-axial fluid accumulation. Normal flow voids within the major intracranial circulation suggesting patency by spin echo criteria. Normal sella turcica, pituitary gland, infundibular stalk, optic chiasm and hypothalamus. Normal tectal plate and pineal gland. Normal midbrain, miranda and medulla. Normal cerebellum. Normal basal cisterns. Normal bilateral temporal bones. Normal bilateral internal auditory canals. No demonstrated orbital abnormality, within the constraints of a routine brain study. Small mucous retention cyst in left maxillary sinus.. Normal calvarium and skull base. Normal visualized soft tissue structures. Normal visualized upper cervical spine. MRI/Brain without Contrast IMPRESSION: Minor periventricular white matter ischemic changes without evidence for acute infarct. Electronically Signed: Ruslan Cuellar MD at 19:46 EDT ,
--- NOTE | 2023-01-31 17:47 | ECHOCS_ITS ---
Reason For Study: TIA/STROKE Procedure This was a 2D Doppler, Color Flow transthoracic echocardiogram. The study was technically difficult. Exam performed portable in patient room. Left Ventricle Normal LV size. The left ventricular ejection fraction is 60 %. Unable to assess diastolic function based on available data. Right Ventricle The right ventricle is not well visualized. Atria The left atrium is not well visualized. The right atrium is not well visualized. Mitral Valve Mitral valve not well visualized. Tricuspid Valve The tricuspid valve is not well visualized. Aortic Valve Trisinus/trileaflet aortic valve. Pulmonic Valve The pulmonic valve is not well visualized. Great Vessels The aortic root is not well visualized. Pericardium/Pleural Trivial pericardial effusion. Medication Diluted definity 2ml given slow IV push to enhance endocardial definition. Performed a rapid injection of agitated mix of 9 cc saline and 1cc air to assess for atrial septal defect. MMode/2D Measurements & Calculations RVDd: 2.9 cm Ao root diam: 3.1 cm LA dimension(2D): 3.1 cm Time Measurements MV dec time: 0.14 sec Doppler Measurements & Calculations MV E max lane: 66.4 cm/sec Lat Peak E' Lane: 9.2 cm/sec Med Peak E' Lane: 9.6 cm/sec MV A max lane: 100.6 cm/sec E/E' lat: 7.2 E/E' med: 6.9 MV E/A: 0.66 Ao V2 max: 134.4 cm/sec LV V1 max: 140.6 cm/sec PA V2 max: 130.0 cm/sec Ao max P.2 mmHg LV V1 max P.9 mmHg ECHO/Echo Complete W/ Contrast Interpretation Summary The left ventricular ejection fraction is 60 %. The study was technically difficult with suboptimal images. Ordering Physician: Graciela Mckoy Referring Physician: MERCEDES ROSS Performed By: Adeline Douglas RDCS
[2023-01-31 18:05] VITALS: BP 147/93; PULSE 75; RESP 14; TEMP 36.7; O2SAT 98
--- NOTE | 2023-01-31 18:19 | CT_ITS ---
We are attempting to reach an attending provider to discuss findings. An addendum with communication details will be sent when the communication is complete. STUDY: CTA HEAD AND NECK WITH CONTRAST REASON FOR EXAM: Male, 62 years old. L sided weakness RADIATION DOSAGE (If Supplied By Facility): CTDIvol = ( 26.79 ) mGy, DLP = ( 852.16 ) mGycm TECHNIQUE: CT angiography was performed with a multi-detector CT scanner. Data acquisition was obtained from the skull base through the vertex following intravenous administration of IV 100mL Isovue-370. MIP images were reconstructed from the axial data set. Post-processing of the angiographic images was performed, with multiplanar reformation and 3D reconstruction. Individualized dose optimization techniques were used for this CT. COMPARISON: No relevant priors. FINDINGS: Normal bilateral petrous carotid arteries. Minor calcific plaquing of the right cavernous carotid artery with a normal supraclinoid bifurcation. Normal left cavernous carotid artery with a normal supraclinoid bifurcation. Normal right A1 segments of the anterior cerebral artery. Normal left A1 segments of the anterior cerebral artery. Anterior communicating artery not visualized consistent with normal variant. Normal bilateral A2 segments of the anterior cerebral arteries. Normal right M1 and M2 segments of the middle cerebral arteries, with a normal M1 bifurcation. Normal left M1 and M2 segments of the middle cerebral arteries, with a normal M1 bifurcation. Posterior communicating arteries are not visualized consistent with normal variant). Normal bilateral vertebral arteries. Normal basilar artery with a normal basilar bifurcation. The visualized bilateral superior cerebellar (SCA) arteries are normal. Normal bilateral P1, P2 and visualized P3 segments of the posterior cerebral arteries. There is no demonstrated aneurysm of the douglas of Alvarez. AORTIC ARCH: Normal visualized aortic arch. Normal origins of the brachiocephalic, left common carotid, and left subclavian arteries. RIGHT CAROTID ARTERIES: Mild calcific plaquing of the right common carotid artery (CCA). Moderate calcific plaquing of the right common carotid bulb. Minor calcific plaquing of the origin of the right internal carotid (ICA) artery without a hemodynamically significant stenosis. Normal visualized cervical portion of the right internal carotid artery. Normal origin of the right external carotid artery (ECA). LEFT CAROTID ARTERIES: Moderate calcific plaquing of the left common carotid artery (CCA). Severe calcific plaquing of the left common carotid bulb demonstrating near occlusion. Moderate calcific plaquing of the origin of the left internal carotid (ICA) artery without a hemodynamically significant stenosis. Normal visualized cervical portion of the left internal carotid artery. Normal origin of the left external carotid artery (ECA). VERTEBRAL ARTERIES: Normal bilateral vertebral arteries. CT/STROKE CTA Head AND Neck W/Con IMPRESSION: Mild atherosclerotic disease brain without evidence for hemodynamically stenosis or major vessel occlusion. Atherosclerotic changes of the carotid arteries most severe on the left with high-grade stenosis near occlusion of the left carotid bulb Electronically Signed: Ruslan Cuellar MD at 21:37 EDT ,
[2023-01-31 18:27] VITALS: BP 116/83; PULSE 74; RESP 18; TEMP 37.1; O2SAT 96
[2023-01-31 18:39] VITALS: BMI 32.8
[2023-01-31] MEDS: MethylPREDNISolone 125 MG/2 ML Vial IV (19:47)
[2023-01-31] MEDS: DiphenhydrAMINE 50 MG/ML Syringe 25 MG IV (19:47)
[2023-01-31] MEDS: 0.9% Saline Lock 10 ML Syringe IV (19:49)
[2023-01-31] MEDS: Atorvastatin Calcium 80 MG Tablet PO (20:03)
[2023-01-31] MEDS: APIXABAN 5 MG TABLET PO (20:03)
[2023-01-31 20:06] VITALS: BP 111/94; PULSE 81; RESP 16; TEMP 36.6; O2SAT 100
[2023-01-31 22:11] VITALS: O2SAT 94
[2023-02-01] VITALS (8 sets, daily range): BP systolic 106–137; BP diastolic 76–116; PULSE 85–109; RESP 16–18; TEMP 36.4–36.9; O2SAT 94–98; BMI 32.8
[2023-02-01 06:47] LABS: Absolute Lymphocyte Count 0.65 X10^3/uL (0.83-4.51); Absolute Neutrophil Count 5.1 X10^3/uL (2.0-7.7); Basophil# 0.01 X10^3/uL; Basophil% 0.2 % (0-1); Hematocrit 43.2 % (40-54); Hemoglobin 14.6 g/dL (13.0-16.5); Lymphocyte # 0.65 X10^3/ul (0.83-4.51); Lymphocyte % 11.1 % (19-41); Mean Corp Hgb Conc 33.8 g/dL (32-36); Mean Corpuscular Volume 91.7 fL (80-94); Mean Platelet Vol. 9.3 fl (6.2-12.0); Monocyte# 0.07 X10^3/uL; Monocyte% 1.2 % (0-10); NRBC Flagged by Analyzer 0 % (0-5); Neutrophil % 87.2 % (47-70); Platelet Count 208 K/mm3 (150-450); RBC Distribution Width CV 12.9 % (11.6-14.6); RBC Distribution Width SD 43.5 fl (35.1-43.9); Red Blood Count 4.71 M/mm3 (4.6-6.2); White Blood Count 5.9 K/mm3 (4.4-11.0)
[2023-02-01 07:26] LABS: ALB/GLOB Ratio 0.9 RATIO (0.9-2.4); AST(SGOT) 19 U/L (15-37); Alanine Aminotransfer ALT/SGPT 28 U/L (16-61); Albumin, Serum 3.7 g/dL (3.2-5.0); Alkaline Phosphatase 80 U/L (45-117); Anion Gap 9 (5-15); BUN 20 mg/dL (7-18); BUN/Creat Ratio 17.4 RATIO (10-20); Chloride 104 mmol/L (98-107); Cholesterol 230 mg/dL (200); Creatinine, Serum 1.15 mg/dL (0.70-1.30); EST Glomerular Filtration Rate 69 mL/min (>60); Est Glom Filt Rate - Afr Amer 83 mL/min (>60); Estimated Creatinine Clearance 69.65 ml/min; Globulin 4.1 g/dL (2.2-4.2); Glucose 190 mg/dL (74-106); High Density Lipoprotein 66 mg/dL; Magnesium 2.4 mg/dL (1.6-2.6); Phosphorus 2.7 mg/dL (2.5-4.9); Potassium 4.3 mmol/L (3.5-5.1); Protein, Total 7.8 g/dL (6.4-8.2); Sodium Level 136 mmol/L (136-145); Thyroid Stim Hormone (TSH) 0.61 uIU/mL (0.358-3.74); Triglycerides 51 mg/dL; Very Low Density Lipoprotein 10 mg/dL (5-40)
[2023-02-01] MEDS: Cholecalciferol (VIT D3) 25 MCG TABLET (1,000 UNITS) PO (07:58)
[2023-02-01] MEDS: Aspirin 81 MG TAB.CHEW PO (07:58)
--- NOTE | 2023-02-01 08:46 | PN.HOSP_ITS ---
Reason for Visit Reason for Visit: Diagnoses Weakness (01/31/23) Subjective Subjective Feels well. Left sided weakness greatly improved. Had pain in LUE and LLE. Objective Data Objective Data Vital Signs: Vital Signs Temp Pulse Resp BP Pulse Ox O2 Del Method 36.9 C 100 16 121/86 H 96 Room Air 02/01/23 07:48 02/01/23 07:48 02/01/23 07:48 02/01/23 07:48 02/01/23 07:51 02/01/23 07:51 Oxygen Delivery Method Room Air Weight: 103.7 kg Body Mass Index (BMI) 32.8 Intake & Output: Intake and Output for Last 24 Hours 01/30/23 01/31/23 02/01/23 23:59 23:59 23:59 Intake Total 320 / 320 Balance 320 / 320 Lab / Micro Data 02/01/23 06:19 02/01/23 06:19 Labs: Laboratory Results - last 24 hr 01/31/23 15:32: WBC 6.6, RBC 4.67, Hgb 14.9, Hct 43.1, MCV 92.3, MCH 31.9, MCHC 34.6, RDW Std Deviation 44.1 H, RDW Coeff of Jose Cruz 13.1, Plt Count 215, MPV 9.3, Immature Gran % (Auto) 0.500, Neut % (Auto) 56.8, Lymph % (Auto) 29.7, [place] % (Auto) 9.8, Eos % (Auto) 2.6, Baso % (Auto) 0.6, Absolute Neuts (auto) 3.8, Absolute Lymphs (auto) 1.97, Nucleated RBC % 0, PT 15.6 H, INR 1.2, APTT 32.5, Sodium 136, Potassium 4.4, Chloride 102, Carbon Dioxide 28.0, Anion Gap 6, BUN 19 H, Creatinine 1.16, Estim Creat Clear Calc 69.05, Est GFR (MDRD) Af Amer 82, Est GFR (MDRD) Non-Af 68, BUN/Creatinine Ratio 16.4, Glucose 94, Calcium 9.0, Troponin I High Sens 5 02/01/23 06:19: WBC 5.9, RBC 4.71, Hgb 14.6, Hct 43.2, MCV 91.7, MCH 31.0, MCHC 33.8, RDW Std Deviation 43.5, RDW Coeff of Jose Cruz 12.9, Plt Count 208, MPV 9.3, Immature Gran % (Auto) 0.300, Neut % (Auto) 87.2 H, Lymph % (Auto) 11.1 L, [place] % (Auto) 1.2, Eos % (Auto) 0.0, Baso % (Auto) 0.2, Absolute Neuts (auto) 5.1, Absolute Lymphs (auto) 0.65 L, Nucleated RBC % 0, Sodium 136, Potassium 4.3, Chloride 104, Carbon Dioxide 23.0, Anion Gap 9, BUN 20 H, Creatinine 1.15, Estim Creat Clear Calc 69.65, Est GFR (MDRD) Af Amer 83, Est GFR (MDRD) Non-Af 69, BUN/Creatinine Ratio 17.4, Glucose 190 H, Calcium 9.0, Phosphorus 2.7, Magnesium 2.4, Total Bilirubin 0.50, AST 19, ALT 28, Alkaline Phosphatase 80, Total Protein 7.8, Albumin 3.7, Globulin 4.1, Albumin/Globulin Ratio 0.9, Triglycerides 51, Cholesterol 230 H, LDL Cholesterol 154 H, VLDL Cholesterol 10, HDL Cholesterol 66, TSH 0.61 Radiography Diagnostic Testing: Radiology Impression Brain CT 01/31/23 14:37 IMPRESSION: Mild atrophy and periventricular white matter ischemic change. No acute bleed. If concern for acute infarct MRI recommended Electronically Signed: Ruslan Cuellar MD at 16:22 EDT , Venous Doppler Study 01/31/23 14:37 Interpretation Summary Chronic deep vein thrombosis is noted in the left popliteal vein, tibioperoneal trunk vein. Ordering Physician: Christoph Mccabe Referring Physician: Denae Lofton Performed By: Gisela Latif, RDCS, RVT Brain MRI 01/31/23 17:47 IMPRESSION: Minor periventricular white matter ischemic changes without evidence for acute infarct. Electronically Signed: Ruslan Cuellar MD at 19:46 EDT , Head/Neck CTA 01/31/23 18:19 IMPRESSION: Mild atherosclerotic disease brain without evidence for hemodynamically stenosis or major vessel occlusion. Atherosclerotic changes of the carotid arteries most severe on the left with high-grade stenosis near occlusion of the left carotid bulb Electronically Signed: Ruslan Cuellar MD at 21:37 EDT , ADDENDUM: 01/31/233 IMPRESSION: Mild atherosclerotic disease brain without evidence for hemodynamically stenosis or major vessel occlusion. Atherosclerotic changes of the carotid arteries most severe on the left with high-grade stenosis near occlusion of the left carotid bulb N.B. : The above Results were Read Back by Ruslan Cuellar MD to Graciela Mckoy DO, and understanding confirmed on 01/31/2023 21:46:44 (ET). Electronically Signed: Ruslan Cuellar MD at 21:37 EDT , Physical Exam Const alert and no apparent distress HEENT head/scalp atraumatic Extremity General Extremity: edema left lower extremity mild Neuro oriented x3, moves all extremities and no focal motor deficits Motor Exam: strength 5/5 throughout Assessment & Plan Assessment/Plan (1) Left-sided weakness: PLAN: LLE weakness. MRI brain shows minor periventricular white matter ischemic changes w/o evidence of an acute infarct. Head and neck CTA: mild atherosclerotic disease brain w/o evidence for hemodynamic stenosis or major vessel occlusion. Atherosclerotic changes of the carotid arteries most sever on the left w high-grade stenosis near occlusion of the left carotid bulb. Concern that this may have been a cervical issue. Currently, it is resolved. Patient would prefer to have this evaluated as outpt Outpt PT/OT. Spine surgery follow up. (2) Carotid stenosis: QUALIFIERS: Laterality: left Qualified Code(s): I65.22 - Occl usion and stenosis of left carotid artery PLAN: continue ASA and atorvastatin follow up with vascular surgery. PLAN: Plan chronic conditions: * History of DVT/PE: -Continue home apixaban. Duplex shows chronic DVT in left popliteal vein, tibioperoneal vein * Hyperlipidemia: continue statin. * Hypertension: -Hold home medication and allow for permissive hypertension with above left-sided weakness and stroke work-up-As needed available per stroke protocol * Tobacco abuse-Previous smoker however is quit-Currently uses smokeless tobacco-Recommend cessation DVT prophylaxis: not indicated as already on apixaban Full code
--- NOTE | 2023-02-01 09:57 | PCM.DC.SUM ---
Providers Date of Admission: 01/31/23 Primary Care Physician: Dr. Denae Lofton MD Consultations 01/31/23 21:52 Consult: Vascular Surgery Routine Consulting Provider: Christoph Barfield Reason for Consult: severe carotid aa stenosis EMERGENT Consult: No MD Notified: Yes Date Notified: 02/01/23 Time Notified: 08:28 Method of Notification: Text Reason For Visit: L SIDED WEAKNESS Diagnosis Discharge Diagnosis (1) Left-sided weakness: Status: Acute Code(s): R53.1 - Weakness Plan: LLE weakness. MRI brain shows minor periventricular white matter ischemic changes w/o evidence of an acute infarct. Head and neck CTA: mild atherosclerotic disease brain w/o evidence for hemodynamic stenosis or major vessel occlusion. Atherosclerotic changes of the carotid arteries most sever on the left w high-grade stenosis near occlusion of the left carotid bulb. Concern that this may have been a cervical issue. Currently, it is resolved. Patient would prefer to have this evaluated as outpt Outpt PT/OT. Spine surgery follow up. (2) Carotid stenosis: Status: Acute Code(s): I65.29 - Occlusion and stenosis of unspecified carotid artery Qualifiers: Laterality: left Qualified Code(s): I65.22 - Occlusion and stenosis of left carotid artery Plan: continue ASA and atorvastatin follow up with vascular surgery. Plan chronic conditions: History of DVT/PE: -Continue home apixaban. 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 Hypertension: -Hold home medication and allow for permissive hypertension with above left-sided weakness and stroke work-up-As needed available per stroke protocol Tobacco abuse-Previous smoker however is quit-Currently uses smokeless tobacco-Recommend cessation DVT prophylaxis: not indicated as already on apixaban Full code Medications at Discharge Home Medications handicap placard #1 ea 01/27/22 apixaban 5 mg tablet 5 mg PO BID #180 tabs 06/07/22 propranolol 10 mg tablet 10 mg PO TID PRN hypertension #270 tabs 06/07/22 amlodipine 5 mg-olmesartan 40 mg tablet (Richie) 1 tab PO DAILY #90 tabs 11/29/22 cholecalciferol (vitamin D3) 25 mcg (1,000 unit) capsule 25 mcg PO DAILY 11/30/22 aspirin 81 mg chewable tablet 81 mg PO BREAKFAST #0 tabs 02/01/23 atorvastatin 80 mg tablet 80 mg PO QHS #30 tabs 02/01/23 Hospital Course Operations None Procedures None Summary of Care Provided Minutes Spent on Discharge: 35 Hospital Course: Patient presents with a 3-day history of left lower extremity weakness. Patient is also experiencing pain in the left upper and lower extremity. Patient was dragging his left lower extremity. Concern was for stroke. Patient underwent an MRI that was negative for any stroke though did show evidence of prior strokes. Patient did have CTA of the head neck that showed severe stenosis of the left carotid artery. Given the absence of a stroke, no emergent intervention is warranted for this critical stenosis and patient can follow-up with vascular surgery. Did recommend patient taking aspirin in addition to his apixaban and as well as a high intensity statin with atorvastatin. Did express concern that patient may have had a cervical lesion tear involving his left upper and left lower extremity including cervical stenosis or herniated disc. Given symptoms are better and clinically he is moving his left side better today, I feel that that can be deferred as outpatient with an MRI imaging as well as following up with spine surgery. Patient advised to return if he has worsening or recurrent symptoms. Weight / BMI Weight Weight: 103.7 kg Body Mass Index (BMI) 32.8 ABG / Lab / Microbiology Data 02/01/23 06:19 02/01/23 06:19 Laboratory: Laboratory Results - last 24 hr 01/31/23 15:32: WBC 6.6, RBC 4.67, Hgb 14.9, Hct 43.1, MCV 92.3, MCH 31.9, MCHC 34.6, RDW Std Deviation 44.1 H, RDW Coeff of Jsoe Cruz 13.1, Plt Count 215, MPV 9.3, Immature Gran % (Auto) 0.500, Neut % (Auto) 56.8, Lymph % (Auto) 29.7, [place] % (Auto) 9.8, Eos % (Auto) 2.6, Baso % (Auto) 0.6, Absolute Neuts (auto) 3.8, Absolute Lymphs (auto) 1.97, Nucleated RBC % 0, PT 15.6 H, INR 1.2, APTT 32.5, Sodium 136, Potassium 4.4, Chloride 102, Carbon Dioxide 28.0, Anion Gap 6, BUN 19 H, Creatinine 1.16, Estim Creat Clear Calc 69.05, Est GFR (MDRD) Af Amer 82, Est GFR (MDRD) Non-Af 68, BUN/Creatinine Ratio 16.4, Glucose 94, Calcium 9.0, Troponin I High Sens 5 02/01/23 06:19: WBC 5.9, RBC 4.71, Hgb 14.6, Hct 43.2, MCV 91.7, MCH 31.0, MCHC 33.8, RDW Std Deviation 43.5, RDW Coeff of Jose Cruz 12.9, Plt Count 208, MPV 9.3, Immature Gran % (Auto) 0.300, Neut % (Auto) 87.2 H, Lymph % (Auto) 11.1 L, [place] % (Auto) 1.2, Eos % (Auto) 0.0, Baso % (Auto) 0.2, Absolute Neuts (auto) 5.1, Absolute Lymphs (auto) 0.65 L, Nucleated RBC % 0, Sodium 136, Potassium 4.3, Chloride 104, Carbon Dioxide 23.0, Anion Gap 9, BUN 20 H, Creatinine 1.15, Estim Creat Clear Calc 69.65, Est GFR (MDRD) Af Amer 83, Est GFR (MDRD) Non-Af 69, BUN/Creatinine Ratio 17.4, Glucose 190 H, Calcium 9.0, Phosphorus 2.7, Magnesium 2.4, Total Bilirubin 0.50, AST 19, ALT 28, Alkaline Phosphatase 80, Total Protein 7.8, Albumin 3.7, Globulin 4.1, Albumin/Globulin Ratio 0.9, Triglycerides 51, Cholesterol 230 H, LDL Cholesterol 154 H, VLDL Cholesterol 10, HDL Cholesterol 66, TSH 0.61 Radiography Diagnostic Testing: Radiology Impression Brain CT 01/31/23 14:37 IMPRESSION: Mild atrophy and periventricular white matter ischemic change. No acute bleed. If concern for acute infarct MRI recommended Electronically Signed: Ruslan Cuellar MD at 16:22 EDT , Venous Doppler Study 01/31/23 14:37 Interpretation Summary Chronic deep vein thrombosis is noted in the left popliteal vein, tibioperoneal trunk vein. Ordering Physician: Christoph Mccabe Referring Physician: Denae Lofton Performed By: Gisela Latif, LILLY, RVT Brain MRI 01/31/23 17:47 IMPRESSION: Minor periventricular white matter ischemic changes without evidence for acute infarct. Electronically Signed: Ruslan Cuellar MD at 19:46 EDT , Head/Neck CTA 01/31/23 18:19 IMPRESSION: Mild atherosclerotic disease brain without evidence for hemodynamically stenosis or major vessel occlusion. Atherosclerotic changes of the carotid arteries most severe on the left with high-grade stenosis near occlusion of the left carotid bulb Electronically Signed: Ruslan Cuellar MD at 21:37 EDT , ADDENDUM: 01/31/23 2153 IMPRESSION: Mild atherosclerotic disease brain without evidence for hemodynamically stenosis or major vessel occlusion. Atherosclerotic changes of the carotid arteries most severe on the left with high-grade stenosis near occlusion of the left carotid bulb N.B. : The above Results were Read Back by Ruslan Cuellar MD to Graciela Mckoy DO, and understanding confirmed on 01/31/2023 21:46:44 (ET). Electronically Signed: Ruslan Cuellar MD at 21:37 EDT , D/C Instructions Discharge Diet: Low fat / Low cholesterol Meaningful Use Info Meaningful Use Diagnoses (Choose all that apply): None applicable Discharge Plan Admission Admit Date/Time: 01/31/23 17:40 Primary Reason for Your Visit: left sided weakness. Attending Provider: Christoph Caputo Primary Care Provider: Denae Lofton Consulting Providers: Graciela Mckoy; Christoph Barfield Instructions Additional Instructions / Restrictions: You presented with left-sided weakness. MRI of the brain did not show any evidence of any new stroke but you did have some subtle changes that are concerning for possible smaller strokes that you may have not had any symptoms with. The CAT scan of your arteries in your head neck showed a severe narrowing in the left carotid bulb. Is recommend that you take aspirin as well as cholesterol medication (atorvastatin) and to follow-up with vascular surgery for evaluation for possible intervention. For your left-sided weakness I am concerned that you may have had a cervical disc or spinal stenosis that may have cause of symptoms. Recommend that you do physical therapy as outpatient and to follow-up with spine surgery for evaluation down the road to see if you need any additional treatments or imaging, such as an MRI. Discharge Orders/Prescriptions Prescriptions: New atorvastatin 80 mg Tablet 80 mg PO QHS Qty: 30 0RF aspirin 81 mg Tablet,Chewable 81 mg PO BREAKFAST Qty: 0 0RF Continued apixaban 5 mg tablet 5 mg PO BID Qty: 180 3RF propranolol 10 mg tablet 10 mg PO TID PRN (Reason: hypertension) Qty: 270 3RF amlodipine-olmesartan [Richie] 5-40 mg tablet 1 tab PO DAILY Qty: 90 1RF (DME) handicap placard See Rx Instructions .Route .MEDSUPPLY Qty: 1 0RF Rx Instructions: 5 year RX 01/27/22 - 01/28/27 cholecalciferol (vitamin D3) 25 mcg (1,000 unit) capsule 25 mcg PO DAILY Other Ambulatory Orders: Physical Therapy Evaluation (Routine) Location: None Selected Ordered By: Dr. Christoph Caputo Referrals / Follow Up: Christoph Barfield MD [Med Staff - Active Staff] - Within 1 Month Denae Lofton MD [Primary Care Provider] - Within 2 Weeks Larry Lutz DO [Med Staff - Active Staff] - Within 3 Months Disposition Disposition (needs filled in before D/C Order can be placed): Home, Self Care Charges/Coding Visit Charges Inpatient E&M: 89260 Disch Hosp >30min
--- NOTE | 2023-02-01 10:15 | CASEMGMT ---
Patient has order for discharge. RN CM in to discuss needs at discharge. Patient denies needs at discharge. Patient had no further questions or concerns.
[2023-02-01] MEDS: APIXABAN 5 MG TABLET PO (10:40)
--- NOTE | 2023-02-01 11:00 | PHA.DC.MC.R ---
Pharmacy [facility] Pharmacy Service has performed discharge medication reconciliation and counseling for this patient. The patient's discharge medication list was reviewed for discrepancies and discrepancies were resolved. The patient was counseled on the following discharge medications and changes in medications for homegoing were reviewed. The Reason for Use, instructions for use, and potential side effects were reviewed for all new medications. The patient's questions regarding all of their medications were answered. 1. Atorvastatin 80 mg PO QHS 2. Aspirin 81 mg PO daily The patient was able to verbally demonstrate an understanding of their discharge medications. Medications at Discharge Home Medications handicap placard #1 ea 01/27/22 apixaban 5 mg tablet 5 mg PO BID blood thinner #180 tabs 06/07/22 propranolol 10 mg tablet 10 mg PO TID PRN hypertension #270 tabs 06/07/22 amlodipine 5 mg-olmesartan 40 mg tablet (Richie) 1 tab PO DAILY blood pressure #90 tabs 11/29/22 cholecalciferol (vitamin D3) 25 mcg (1,000 unit) capsule 25 mcg PO DAILY vitamin 11/30/22 aspirin 81 mg chewable tablet 81 mg PO BREAKFAST #0 tabs 02/01/23 atorvastatin 80 mg tablet 80 mg PO QHS #30 tabs 02/01/23
--- NOTE | 2023-02-01 11:12 | CASEMGMT ---
Social Work SW met with pt and discussed advance directives. pt confirms he has completed both a living will and Health care POA naming his daughter Marni Dumont and sister Amy Shepherd. SW informed pt documents are not on file at [facility] and requested they be brought in for scanning into the EMR. JALIL Peace
--- NOTE | 2023-02-01 13:35 | CON.PCM.SX_ITS ---
Assessment & Plan Assessment/Plan (1) Carotid stenosis: QUALIFIERS: Laterality: left Qualified Code(s): I65.22 - Occlusion and stenosis of left carotid artery PLAN: -CTA images reviewed, right ICA no stenosis with minimal plaque, left ICA 36% stenosis with calcified plaque -plan to follow up in office to establish duplex surveillance -unprovoked recurrent DVT in past with persistent pain/edema despite compression; may benefit from outpatient venogram HPI Consult Data Date of Consult: 02/01/23 HPI Narrative HPI Narrative: IRIS MUNOZ, is a 62 M who presents with left leg pain/edema/weakness with difficulty walking and lifting his leg. He has had these symptoms intermittently since his DVT in his LLE in 2018. His DVT and later PE were unprovoked. There was concern that symptoms represented a CVA and workup included CTA neck. [facility] Medical History (Updated 02/01/23 @ 08:[address] Christoph Caputo, DO) Arthritis Bilateral inguinal hernia Hearing loss History of blood clots History of cellulitis History of pulmonary embolism Hypertension Left inguinal hernia Occasional tremors Umbilical hernia Home Medications handicap placard #1 ea 01/27/22 [Rx Last Taken Unknown] apixaban 5 mg tablet 5 mg PO BID blood thinner #180 tabs 06/07/22 [Rx Last Taken 01/31/23] propranolol 10 mg tablet 10 mg PO TID PRN hypertension #270 tabs 06/07/22 [Rx Last Taken 01/31/23] amlodipine 5 mg-olmesartan 40 mg tablet (Richie) 1 tab PO DAILY blood pressure #90 tabs 11/29/22 [Rx Last Taken 01/31/23] cholecalciferol (vitamin D3) 25 mcg (1,000 unit) capsule 25 mcg PO DAILY vitamin 11/30/22 [History Last Taken 01/30/23] aspirin 81 mg chewable tablet 81 mg PO BREAKFAST #0 tabs 02/01/23 [Rx Last Taken Unknown] atorvastatin 80 mg tablet 80 mg PO QHS #30 tabs 02/01/23 [Rx Last Taken Unknown] Allergy/AdvReac Type Severity Reaction Status Date / Time Gadolinium-MRI Contrast Allergy DIZZY Verified 01/31/23 18:13 Medium [CONTRAST] Iodinated Contrast Media Allergy DIZZY Verified 01/31/23 18:13 [CONTRASTS] Family History Other Arthritis Blood clot in vein CVA (cerebral vascular accident) Heart disease Hypertension Left inguinal hernia Myocardial infarction Occasional tremors Osteoporosis Thyroid disorder Surgical History (Updated 01/31/23 @ 20:11 by Hayley Eldridge) H/O bilateral inguinal hernia repair (~02/16/19) h/o cyst excision history excision ganglion cyst right hand History of umbilical hernia repair (~02/16/19) Hx of right knee surgery Social History (Updated 01/31/23 @ 18:[address] Graciela Mckoy DO) Smoking Status: Unknown if ever smoked Smokeless tobacco user: chewing tobacco alcohol intake: current alcohol intake frequency: a few times a week Alcohol type: beer substance use type: does not use what type of physical activity do you participate in: walking frequency: daily ROS Constitutional Constitutional: Denies chills, fever(s), frequent falls, lethargy or weakness Eyes Eyes: Denies blind spots, change in vision or loss of vision ENT HEENT: Denies bleeding gums, hoarseness or sore throat Cardiovascular Cardiovascular: Reports leg edema and weakness in extremities; Denies abdominal pain, bluish discoloration of hand/feet, chest pain with activity, claudication, cold extremities, cyanosis, dyspnea on exertion, erythema on extremities, irregular heart rhythm, leg ulcers or numbness in extremities Respiratory/Chest Respiratory/Chest: Denies cough, excessive phlegm production, shortness of breath at rest, shortness of breath with exertion or wheezing Gastrointestinal Gastrointestinal: Denies anorexia, change in stool character, constipation, diarrhea, melena or rectal bleeding Genitourinary Genitourinary: Denies dysuria or hematuria Musculoskeletal Musculoskeletal: Denies abnormal gait Integumentary Integumentary: Reports other Details: ; Denies erythema, non-healing lesions or wounds Neurologic Neurologic: Denies abnormal speech, focal weakness, headache(s), loss of vision, numbness, paresthesias or sensory deficit Hematologic/Lymphatic Hematologic/Lymphatic: Denies easy bleeding, easy bruising or lymphadenopathy Physical Exam Const alert, oriented x3, no apparent distress and healthy appearing General Appearance: cooperative; Negative for combative or lethargic Orientation / Consciousness: awake Exam Limitations: no limitations HEENT Head and Scalp: normocephalic and atraumatic Eyes EOMs intact bilaterally General Eye: normal appearance of both eyes Neck full ROM, no lymphadenopathy and thyroid normal General: trachea midline; Negative for lymphadenopathy or tenderness Thyroid: thyroid normal Lymph Lymphatic: Negative for no lymphadenopathy noted Resp normal respiratory effort and no use of accessory muscles Effort and Inspection: Negative for labored, stridor or audible wheezes Cardio regular rate and regular rhythm Peripheral Pulses: brachial pulses present, radial pulses present, posterior tibial pulses present and dorsalis pedis pulses present Back/Spine Cervical Spine: cervical ROM normal Extremity full ROM and normal capillary refill Extremity Narrative: LLE mild edema, prominent reticular veins Skin no rashes or lesions noted and no wounds Neuro oriented x3, CN's II-XII intact bilaterally, no focal motor deficits and no sensory deficits noted Psych thought process normal, cooperative, affect normal, speech normal and activity/motor behavior normal Lab / Micro Data 02/01/23 06:19 02/01/23 06:19 Labs: Laboratory Results - last 24 hr 01/31/23 15:32: WBC 6.6, RBC 4.67, Hgb 14.9, Hct 43.1, MCV 92.3, MCH 31.9, MCHC 34.6, RDW Std Deviation 44.1 H, RDW Coeff of Jose Cruz 13.1, Plt Count 215, MPV 9.3, Immature Gran % (Auto) 0.500, Neut % (Auto) 56.8, Lymph % (Auto) 29.7, [place] % (Auto) 9.8, Eos % (Auto) 2.6, Baso % (Auto) 0.6, Absolute Neuts (auto) 3.8, Absolute Lymphs (auto) 1.97, Nucleated RBC % 0, PT 15.6 H, INR 1.2, APTT 32.5, Sodium 136, Potassium 4.4, Chloride 102, Carbon Dioxide 28.0, Anion Gap 6, BUN 19 H, Creatinine 1.16, Estim Creat Clear Calc 69.05, Est GFR (MDRD) Af Amer 82, Est GFR (MDRD) Non-Af 68, BUN/Creatinine Ratio 16.4, Glucose 94, Calcium 9.0, Troponin I High Sens 5 02/01/23 06:19: WBC 5.9, RBC 4.71, Hgb 14.6, Hct 43.2, MCV 91.7, MCH 31.0, MCHC 33.8, RDW Std Deviation 43.5, RDW Coeff of Jose Cruz 12.9, Plt Count 208, MPV 9.3, Immature Gran % (Auto) 0.300, Neut % (Auto) 87.2 H, Lymph % (Auto) 11.1 L, [place] % (Auto) 1.2, Eos % (Auto) 0.0, Baso % (Auto) 0.2, Absolute Neuts (auto) 5.1, Absolute Lymphs (auto) 0.65 L, Nucleated RBC % 0, Sodium 136, Potassium 4.3, Chloride 104, Carbon Dioxide 23.0, Anion Gap 9, BUN 20 H, Creatinine 1.15, Estim Creat Clear Calc 69.65, Est GFR (MDRD) Af Amer 83, Est GFR (MDRD) Non-Af 69, BUN/Creatinine Ratio 17.4, Glucose 190 H, Calcium 9.0, Phosphorus 2.7, Magnesium 2.4, Total Bilirubin 0.50, AST 19, ALT 28, Alkaline Phosphatase 80, Total Protein 7.8, Albumin 3.7, Globulin 4.1, Albumin/Globulin Ratio 0.9, Triglycerides 51, Cholesterol 230 H, LDL Cholesterol 154 H, VLDL Cholesterol 10, HDL Cholesterol 66, TSH 0.[address] 01/31/23 14:37 IMPRESSION: Mild atrophy and periventricular white matter ischemic change. No acute bleed. If concern for acute infarct MRI recommended Electronically Signed: Ruslan Cuellar MD at 16:22 EDT Reading Location ID and State: [address] [place] [address] Tel , Service support , Venous Doppler Study 01/31/23 14:37 Interpretation Summary Chronic deep vein thrombosis is noted in the left popliteal vein, tibioperoneal trunk vein. Ordering Physician: Christoph Mccabe Referring Physician: Denae Lofton Performed By: Gisela Latif, LILLY, RVT Brain MRI 01/31/23 17:47 IMPRESSION: Minor periventricular white matter ischemic changes without evidence for acute infarct. Electronically Signed: Ruslan Cuellar MD at 19:46 EDT , Head/Neck CTA 01/31/23 18:19 IMPRESSION: Mild atherosclerotic disease brain without evidence for hemodynamically stenosis or major vessel occlusion. Atherosclerotic changes of the carotid arteries most severe on the left with high-grade stenosis near occlusion of the left carotid bulb Electronically Signed: Ruslan Cuellar MD at 21:37 EDT , ADDENDUM: 01/31/233 IMPRESSION: Mild atherosclerotic disease brain without evidence for hemodynamically stenosis or major vessel occlusion. Atherosclerotic changes of the carotid arteries most severe on the left with high-grade stenosis near occlusion of the left carotid bulb N.B. : The above Results were Read Back by Ruslan Cuellar MD to Graciela Mckoy DO, and understanding confirmed on 01/31/2023 21:46:44 (ET). Electronically Signed: Ruslan Cuellar MD at 21:37 EDT , Charges/Coding Visit Charges Inpatient E&M: 74237 Init Hosp L3
== END 2023-02-01 10:07 | disposition home or self-care (01) ==
LOC: ED 18:00 → PCU 18:26
PROVIDERS: Admitting Provider Internal Medicine; Emergency Provider Emergency Medicine; PCP Internal Medicine
DX: R53.1 Weakness (principal); I65.22 Occlusion and stenosis of left carotid artery; I10 Essential (primary) hypertension; M54.2 Cervicalgia; F17.220 Nicotine dependence, chewing tobacco, uncomplicated; R51.9 Headache, unspecified; R26.2 Difficulty in walking, not elsewhere classified; M79.605 Pain in left leg; R60.0 Localized edema; Z79.82 Long term (current) use of aspirin; Z79.899 Other long term (current) drug therapy; Z79.01 Long term (current) use of anticoagulants; Z86.718 Personal history of other venous thrombosis and embolism; Z86.711 Personal history of pulmonary embolism
CPT/HCPCS: 36415; 70450; 70496; 70498; 70551; 80048; 80053; 80061; 83735; 84100; 84443; 84484; 85025; 85610; 85730; 93005; 93306; 93971; 94762; 96374; 96375; 99221; 99285; Q9957; Q9967; A4216; C8929; G0378

== ENCOUNTER → 2023-02-24 | Outpatient (CLI) | payer MEDICAID, SELFPAY ==
--- NOTE | 2023-02-24 08:50 | CDU_ITS ---
Reason For Study: Carotid Stenosis Rt. Velocities/BP Lt. Velocities/BP Prox CCA 66.3/19.0 cm/sec. Prox CCA 104.7/34.4 cm/sec. Mid CCA 68.5/20.1 cm/sec. Mid CCA 70.2/23.0 cm/sec. Dist CCA 67.4/22.3 cm/sec. Dist CCA 70.2/27.7 cm/sec. Prox ICA 60.8/23.4 cm/sec. Prox ICA 65.5/24.8 cm/sec. Mid ICA 70.7/30.0 cm/sec. Mid ICA 73.0/29.6 cm/sec. Dist ICA 72.9/38.8 cm/sec. Dist ICA 80.6/41.9 cm/sec. Rt. ICA/CCA = 1.1. Lt. ICA/CCA = 1.1. Prox ECA 76.8/17.3 cm/sec. Prox ECA 69.2/16.8 cm/sec. Rt. Vert. 55.2/22.9 cm/sec. Lt. Vert. 40.4/16.8 cm/sec. Right Extracranial There is homogeneous, smooth atherosclerotic plaque noted in the right common carotid artery. There is heterogeneous, irregular atherosclerotic plaque noted in the right internal carotid artery. There is heterogeneous, irregular atherosclerotic plaque noted in the right external carotid artery. Antegrade flow is noted in the right vertebral artery. Left Extracranial There is homogeneous, smooth atherosclerotic plaque noted in the left common carotid artery. There is heterogeneous, irregular atherosclerotic plaque noted in the left internal carotid artery. The atherosclerotic plaque causes acoustic shadowing. There is heterogeneous, irregular atherosclerotic plaque noted in the left external carotid artery. Antegrade flow is noted in the left vertebral artery. Procedure Carotid Duplex 17351. This is a Carotid Duplex examination using B-mode, color flow and specral Doppler. The exam was diagnostic. Exam performed in department. VL/Carotid Duplex Ultrasound Interpretation Summary Mild (<50%) stenosis right extracranial internal carotid. Mild (<50%) stenosis left extracranial internal carotid. Patent and antegrade vertebrals bilaterally. Ordering Physician: Ingris Maria Referring Physician: Denae Lofton M.D. Performed By: Raghav Harris RVT
== END | disposition home or self-care (01) ==
LOC: CVS 08:49
PROVIDERS: PCP Internal Medicine; Referring Provider Physician Assistant; Visit Provider Physician Assistant
DX: I65.29 Occlusion and stenosis of unspecified carotid artery (principal)
CPT/HCPCS: 93880

== ENCOUNTER → 2023-03-16 | Outpatient (CLI) | payer MEDICAID, SELFPAY | END | disposition home or self-care (01) | LOC: LABSPEC 10:24 | PROVIDERS: PCP Internal Medicine; Referring Provider Internal Medicine; Visit Provider Internal Medicine | DX: J06.9 Acute upper respiratory infection, unspecified (principal) | CPT/HCPCS: 87635 ==

== ENCOUNTER → 2023-12-14 | Outpatient (CLI) | payer MEDICARE, SELFPAY ==
[2023-12-14 09:55] LABS: Absolute Lymphocyte Count 1.72 X10^3/uL (0.83-4.51); Absolute Neutrophil Count 3.4 X10^3/uL (2.0-7.7); Basophil# 0.03 X10^3/uL; Basophil% 0.5 % (0-1); Eosinophil# 0.16 X10^3/uL; Eosinophils% 2.6 % (0-5); Hemoglobin 13.9 g/dL (13.0-16.5); Lymphocyte # 1.72 X10^3/ul (0.83-4.51); Lymphocyte % 27.9 % (19-41); Mean Corp Hgb Conc 33.9 g/dL (32-36); Mean Corpuscular Hgb 31.3 pg (27.0-32.0); Mean Corpuscular Volume 92.3 fL (80-94); Mean Platelet Vol. 9.4 fl (6.2-12.0); NRBC Flagged by Analyzer 0 % (0-5); Neutrophil # 3.44 X10^3/uL (2.7-7.7); Neutrophil % 55.7 % (47-70); Platelet Count 195 K/mm3 (150-450); RBC Distribution Width SD 43.9 fl (35.1-43.9); Red Blood Count 4.44 M/mm3 (4.6-6.2); White Blood Count 6.2 K/mm3 (4.4-11.0)
[2023-12-14 10:27] LABS: Vitamin B12 753 pg/mL (211-911); Vitamin D,25 Hydroxy 36.8 ng/mL
[2023-12-14 10:51] LABS: AST(SGOT) 24 U/L (15-37); Alanine Aminotransfer ALT/SGPT 29 U/L (16-61); Albumin, Serum 3.8 g/dL (3.2-5.0); Alkaline Phosphatase 84 U/L (45-117); Anion Gap 7 (5-15); BUN 25 mg/dL (7-18); BUN/Creat Ratio 20.3 RATIO (10-20); Chloride 106 mmol/L (98-107); Cholesterol 176 mg/dL (200); Creatinine, Serum 1.23 mg/dL (0.70-1.30); EST Glomerular Filtration Rate 63 mL/min (>60); Est Glom Filt Rate - Afr Amer 77 mL/min (>60); Globulin 3.9 g/dL (2.2-4.2); Glucose 127 mg/dL (74-106); High Density Lipoprotein 42 mg/dL; PSA,Total - Annual Screen 2.44 ng/mL (0.00-4.00); Potassium 4.3 mmol/L (3.5-5.1); Protein, Total 7.7 g/dL (6.4-8.2); Sodium Level 135 mmol/L (136-145); Thyroid Stim Hormone (TSH) 2.64 uIU/mL (0.358-3.74); Triglycerides 189 mg/dL; Very Low Density Lipoprotein 38 mg/dL (5-40)
== END | disposition home or self-care (01) ==
PROVIDERS: PCP Internal Medicine; Referring Provider Internal Medicine; Visit Provider Internal Medicine
DX: E78.5 Hyperlipidemia, unspecified (principal); E66.9 Obesity, unspecified; I10 Essential (primary) hypertension; Z13.220 Encounter for screening for lipoid disorders; E53.8 Deficiency of other specified B group vitamins; E55.9 Vitamin D deficiency, unspecified; Z12.5 Encounter for screening for malignant neoplasm of prostate
CPT/HCPCS: 36415; 80053; 80061; 82306; 82607; 84153; 84443; 85025; G0103

== ENCOUNTER → 2024-02-20 | Outpatient (CLI) | payer MEDICARE, SELFPAY ==
--- NOTE | 2024-02-20 08:46 | CDU_ITS ---
Reason For Study: Carotid Artery Stenosis Rt. Velocities/BP Lt. Velocities/BP Prox CCA 62/19 cm/sec. Prox CCA 62/19 cm/sec. Mid CCA 67/20 cm/sec. Mid CCA 64/21 cm/sec. Dist CCA 61/19 cm/sec. Dist CCA 55/17 cm/sec. Prox ICA 57/20 cm/sec. Prox ICA 55/24 cm/sec. Mid ICA 53/21 cm/sec. Mid ICA 70/33 cm/sec. Dist ICA 56/25 cm/sec. Dist ICA 78/34 cm/sec. Rt. ICA/CCA = 0.9. Lt. ICA/CCA = 1.2. Prox ECA 105/21 cm/sec. Prox ECA 71/19 cm/sec. Rt. Vert. 48/20 cm/sec. Lt. Vert. 44/21 cm/sec. Right Extracranial There is intimal thickening but no significant atherosclerotic plaque noted in the right common carotid artery. There is heterogeneous, irregular atherosclerotic plaque noted in the right internal carotid artery. There is heterogeneous, irregular atherosclerotic plaque noted in the right external carotid artery. Antegrade flow is noted in the right vertebral artery. Left Extracranial There is heterogeneous, irregular atherosclerotic plaque noted in the left common carotid artery. There is heterogeneous, irregular atherosclerotic plaque noted in the left internal carotid artery. There is heterogeneous, irregular atherosclerotic plaque noted in the left external carotid artery. Antegrade flow is noted in the left vertebral artery. Procedure Carotid Duplex [id number]. This is a Carotid Duplex examination using B-mode, color flow and specral Doppler. Exam performed in department. VL/Carotid Duplex Ultrasound Interpretation Summary Mild (<50%) stenosis right extracranial internal carotid. Mild (<50%) stenosis left extracranial internal carotid. Patent and antegrade vertebrals bilaterally. Ordering Physician: Ingris Maria Referring Physician: Denae Lofton Performed By: Gisela Latif, LILLY, RVT
== END | disposition home or self-care (01) ==
PROVIDERS: PCP Internal Medicine; Referring Provider Physician Assistant; Visit Provider Physician Assistant
DX: I65.22 Occlusion and stenosis of left carotid artery (principal)
CPT/HCPCS: 93880

== ENCOUNTER → 2024-07-03 | Outpatient (CLI) | payer MEDICARE, SELFPAY ==
[2024-07-03 13:11] LABS: Absolute Lymphocyte Count 1.89 X10^3/uL (0.83-4.51); Absolute Neutrophil Count 3.4 X10^3/uL (2.0-7.7); Basophil# 0.03 X10^3/uL; Basophil% 0.5 % (0-1); Eosinophil# 0.21 X10^3/uL; Eosinophils% 3.3 % (0-5); Hematocrit 43.3 % (40-54); Hemoglobin 14.1 g/dL (13.0-16.5); Lymphocyte # 1.89 X10^3/ul (0.83-4.51); Mean Corp Hgb Conc 32.6 g/dL (32-36); Mean Corpuscular Hgb 30.9 pg (27.0-32.0); Mean Corpuscular Volume 94.7 fL (80-94); Mean Platelet Vol. 9.7 fl (6.2-12.0); Monocyte# 0.72 X10^3/uL; Monocyte% 11.4 % (0-10); NRBC Flagged by Analyzer 0 % (0-5); Neutrophil # 3.43 X10^3/uL (2.7-7.7); Neutrophil % 54.5 % (47-70); Platelet Count 201 K/mm3 (150-450); RBC Distribution Width CV 13.6 % (11.6-14.6); RBC Distribution Width SD 46.8 fl (35.1-43.9); Red Blood Count 4.57 M/mm3 (4.6-6.2); White Blood Count 6.3 K/mm3 (4.4-11.0)
[2024-07-03 19:22] LABS: Vitamin D,25 Hydroxy 30.7 ng/mL (30-100)
[2024-07-04 10:17] LABS: Cholesterol 241 mg/dL (<=200); High Density Lipoprotein 57 mg/dL; Triglycerides 176 mg/dL; Very Low Density Lipoprotein 35 mg/dL (5-40)
[2024-07-04 10:19] LABS: ALB/GLOB Ratio 1.5 RATIO (0.9-2.4); AST(SGOT) 26 U/L (<=37); Alanine Aminotransfer ALT/SGPT 26 U/L (<=46); Albumin, Serum 4.5 g/dL (3.4-4.8); Alkaline Phosphatase 80 U/L (40-129); Anion Gap 11 (5-15); BUN 24 mg/dL (4-19); BUN/Creat Ratio 19.9 RATIO (10-20); Calcium 9.9 mg/dL (7.6-11.0); Carbon Dioxide 26.1 mmol/L (22.0-29.0); Chloride 102 mmol/L (96-108); Creatinine, Serum 1.2 mg/dL (0.8-1.3); EST Glomerular Filtration Rate 67 (>60); Globulin 3.1 g/dL (2.2-4.2); Glucose 109 mg/dL (70-99); Potassium 5.7 mmol/L (3.3-5.1); Protein, Total 7.5 g/dL (5.9-8.4); Sodium Level 139 mmol/L (133-145); Total Bilirubin 0.32 mg/dL (0.00-1.30)
[2024-07-04 19:46] LABS: Hemoglobin A1c 5.8 % (<=5.6)
== END | disposition home or self-care (01) ==
LOC: BIMLAB 09:44
PROVIDERS: PCP Internal Medicine; Referring Provider Internal Medicine; Visit Provider Internal Medicine
DX: I10 Essential (primary) hypertension (principal); E78.5 Hyperlipidemia, unspecified; R73.9 Hyperglycemia, unspecified; E66.9 Obesity, unspecified; E55.9 Vitamin D deficiency, unspecified
CPT/HCPCS: 36415; 80053; 80061; 82306; 83036; 84443; 85025

== ENCOUNTER → 2024-07-05 | Outpatient (CLI) | payer MEDICARE, SELFPAY ==
[2024-07-05 13:38] LABS: Potassium 4.8 mmol/L (3.3-5.1)
== END | disposition home or self-care (01) ==
LOC: BIMLAB 09:18
PROVIDERS: PCP Internal Medicine; Referring Provider Internal Medicine; Visit Provider Internal Medicine
DX: E87.5 Hyperkalemia (principal)
CPT/HCPCS: 36415; 84132